=== PATIENT | male | born 1945 | race Caucasian/White ===

== ENCOUNTER 2021-01-05 21:43 | Emergency (ER) | payer OTHER ==
[2021-01-05 22:37] LABS: Absolute Lymphocytes (CBC) 1.3 K/uL (0.7-4.9); Hematocrit 43.5 % (39.6-49.0); Lymphocytes % 27.1 % (15.3-44.8); MPV 8.6 fL (7.6-11.3); RBC Red Blood Cell Count 4.93 M/uL (4.33-5.43)
[2021-01-05 22:38] LABS: Protime INR 0.99
[2021-01-05 22:56] LABS: ALT/SGPT 83 U/L (12-78); AST/SGOT 66 U/L (15-37); Albumin 3.3 g/dL (3.4-5.0); Alkaline Phosphatase 71 U/L (45-117); BUN Blood Urea Nitrogen 11 mg/dL (7-18); Bicarbonate 29 mmol/L (21-32); Bilirubin Direct 0.2 mg/dL (0-0.2); Bilirubin Total 0.3 mg/dL (0.2-1.0); Glucose Level 233 mg/dL (74-106); Magnesium 1.9 mg/dL (1.8-2.4); NT PRO-BNP 78 pg/mL (<125); Potassium 3.8 mmol/L (3.5-5.1); Protein, Total 7.4 g/dL (6.4-8.2); Sodium Level 138 mmol/L (136-145); Troponin (Emerg Dept Use Only) < 0.02 ng/mL (0.0-0.045)
[2021-01-06] MEDS ORDERED: ONDANSETRON 4 MG/2 ML VIAL ONE (01:24)
[2021-01-06] MEDS ORDERED: MORPHINE 2 MG/ML SYR ONE (01:24)
[2021-01-06] MEDS ORDERED: NA CHLORIDE 0.9% 1,000 ML ONE (01:24)
[2021-01-06] MEDS ORDERED: DIPHENHYDRAMINE 50 MG/ML VIAL ONE (03:43)
[2021-01-06] MEDS ORDERED: METHYLPREDNISOLONE 40 MG INJ ONE (03:43)
[2021-01-06] MEDS ORDERED: ACETAMINOPHEN 500 MG TAB ONE (03:43)
[2021-01-06] MEDS ORDERED: NA CHLORIDE 0.9% 250 ML ONE (04:21)
[2021-01-06] MEDS ORDERED: CASIRIVIMAB/IMDEVIMAB 10 ML VIAL ONE (04:21)
--- NOTE | 2021-01-06 06:33 | EDPHYS ---
Physician Documentation [facility] Name: Marek Paul III Age: 75 yrs Sex: Male : 1945 Arrival Date: 01/05/2021 Time: 21:52 Bed 23 Private MD: ED Physician Alexis Desir HPI: 01/06 00:35 This 75 yrs old Male presents to ER via Ambulatory with complaints of Chest mh7 Pain, RIB PAIN, BELCHING ALOT. 01:30 The patient or guardian reports cough, that is intermittent, described as moderate, mh7 with no sputum, flu symptoms, myalgias, Congestion. Onset: The symptoms/episode began/occurred 3 day(s) ago. Severity of symptoms: At their worst the symptoms were moderate, 2 day(s) ago, in the emergency department the symptoms are unchanged. Modifying factors: The symptoms are alleviated by nothing, Did not attempt to take medication the symptoms are aggravated by nothing. Associated signs and symptoms: Pertinent positives: chest pain, with cough, rhinorrhea, body aches, Pertinent negatives: diarrhea, ear ache, fever, nausea, sore throat, vomiting. Historical: - Allergies: 01/05 22:31 No Known Allergies; em - PMHx: 01/06 02:41 Diabetes mellitus; jb4 - Immunization history:: Adult Immunizations not immunized, Client reports having NOT received the Covid vaccine. - Social history:: Smoking status: Patient denies any tobacco usage or history of. ROS: 00:35 Constitutional: Negative for fever, chills, and weight loss, Eyes: Negative for injury, mh7 pain, redness, and discharge, ENT: Negative for injury, pain, and discharge, Neck: Negative for injury, pain, and swelling, Abdomen/GI: Negative for abdominal pain, nausea, vomiting, diarrhea, and constipation, Back: Negative for injury and pain, : Negative for injury, bleeding, discharge, and swelling, MS/Extremity: Negative for injury and deformity, Skin: Negative for injury, rash, and discoloration, Neuro: Negative for headache, weakness, numbness, tingling, and seizure, Psych: Negative for depression, anxiety, suicide ideation, homicidal ideation, and hallucinations, Allergy/Immunology: Negative for hives, rash, and allergies, Endocrine: Negative for neck swelling, polydipsia, polyuria, polyphagia, and marked weight changes. Exam: 00:35 Constitutional: This is a well developed, well nourished patient who is awake, alert, mh7 and in no acute distress. Head/Face: Normocephalic, atraumatic. Eyes: Pupils equal round and reactive to light, extra-ocular motions intact. Lids and lashes normal. Conjunctiva and sclera are non-icteric and not injected. Cornea within normal limits. Periorbital areas with no swelling, redness, or edema. ENT: Nares patent. No nasal discharge, no septal abnormalities noted. Tympanic membranes are normal and external auditory canals are clear. Oropharynx with no redness, swelling, or masses, exudates, or evidence of obstruction, uvula midline. Mucous membranes moist. Neck: Trachea midline, no thyromegaly or masses palpated, and no cervical lymphadenopathy. Supple, full range of motion without nuchal rigidity, or vertebral point tenderness. No Meningismus. Chest/axilla: Normal chest wall appearance and motion. Nontender with no deformity. No lesions are appreciated. Cardiovascular: Regular rate and rhythm with a normal S1 and S2. No gallops, murmurs, or rubs. Normal PMI, no JVD. No pulse deficits. 00:35 Abdomen/GI: Soft, non-tender, with normal bowel sounds. No distension or tympany. No guarding or rebound. No evidence of tenderness throughout. Back: No spinal tenderness. No costovertebral tenderness. Full range of motion. Skin: Warm, dry with normal turgor. Normal color with no rashes, no lesions, and no evidence of cellulitis. MS/ Extremity: Pulses equal, no cyanosis. Neurovascular intact. Full, normal range of motion. Neuro: Awake and alert, GCS 15, oriented to person, place, time, and situation. Cranial nerves II-XII grossly intact. Motor strength 5/5 in all extremities. Sensory grossly intact. Cerebellar exam normal. Normal gait. Psych: Awake, alert, with orientation to person, place and time. Behavior, mood, and affect are within normal limits. 00:35 Respiratory: the patient does not display signs of respiratory distress, Respirations: normal, Breath sounds: rhonchi, that are mild, are scattered, Respiratory rate: 18 Vital Signs: 01/05 22:08 BP 155 / 90; Pulse 95; Resp 18; Temp 97.8; Pulse Ox 99% on R/A; Weight 78.93 kg; Height em 5 ft. 7 in. (170.18 cm); Pain 8/10; 23:23 BP 175 / 102 RA; Pulse 96; Pulse Ox 97% on R/A; mw 23:26 BP 159 / 101; mw 0815 00:30 BP 180 / 103; Pulse 99; Resp 16; Pulse Ox 98% on R/A; jb4 01:15 BP 164 / 94; Pulse 99; Resp 16; Pulse Ox 98% on R/A; jb4 03:00 BP 169 / 114; Pulse 96; Resp 16; Pulse Ox 97% on R/A; jb4 04:00 BP 126 / 78; Pulse 90; Resp 18; Pulse Ox 96% on R/A; jb4 04:30 BP 128 / 74; Pulse 86; Resp 16; Pulse Ox 95% on R/A; jb4 05:00 BP 146 / 102; Pulse 84; Resp 16; Pulse Ox 95% on R/A; jb4 06:00 BP 159 / 99; Pulse 76; Resp 21; Pulse Ox 94% on R/A; jb4 01/05 22:08 Body Mass Index 27.25 (78.93 kg, 170.18 cm) em MDM: 06:30 Differential Diagnosis: Bronchitis Influenza Upper Respiratory Infection Viral Syndrome mh7 Pneumonia. Data reviewed: vital signs, nurses notes, lab test result(s), cardiac enzymes, CBC, electrolytes, Flu: negative Covid positive, EKG, radiologic studies, CT scan, plain films. Data interpreted: Pulse oximetry: on room air is 96 %. Interpretation: normal. Counseling: I had a detailed discussion with the patient and/or guardian regarding: the historical points, exam findings, and any diagnostic results supporting the discharge/admit diagnosis, the presence of at least one elevated blood pressure reading (>120/80) during this emergency department visit, lab results, radiology results, the need for outpatient follow up, to return to the emergency department if symptoms worsen or persist or if there are any questions or concerns that arise at home. Response to treatment: the patient's symptoms have resolved after treatment, the patient's blood pressure is in an acceptable range, mental status has returned to baseline, the patient no longer shows bradycardia, the patient is not short of breath, the patient is not tachycardic, the patient's pain is gone, the patient's temperature has normalized, the patient's condition has returned to base line, the patient is now symptom free. 06:32 Patient medically screened. health system 01/05 22:27 Order name: Basic Metabolic Panel; Complete Time: 00:08 2 01/05 22:27 Order name: CBC with Diff; Complete Time: 00:08 [facility] 01/05 22:27 Order name: LFT's; Complete Time: 00:08 [facility] 01/05 22:27 Order name: Magnesium; Complete Time: 00:08 [facility] 01/05 22:27 Order name: NT PRO-BNP; Complete Time: 00:08 [facility] 01/05 22:27 Order name: PT-INR; Complete Time: 00:08 [facility] 01/05 22:27 Order name: Troponin (emerg Dept Use Only); Complete Time: 00:08 [facility] 01/05 22:27 Order name: XRAY Chest (1 view) [facility] 01/06 00:48 Order name: Lipase; Complete Time: 01:34 health system 01/06 00:48 Order name: CT Chest For PE Angio [facility] 01/06 01:27 Order name: SARS-COV-2 RT PCR; Complete Time: 01:34 [facility] 01/06 02:44 Order name: Troponin (emerg Dept Use Only) health system 01/06 02:44 Order name: Troponin (Emerg Dept Use Only); Complete Time: 05:49 EDMS 01/05 22:27 Order name: EKG; Complete Time: 22:28 [facility] 01/05 22:27 Order name: Cardiac monitoring; Complete Time: 00:08 [facility] 01/05 22:27 Order name: EKG - Nurse/Tech; Complete Time: 22:27 2 01/05 22:27 Order name: IV Saline Lock; Complete Time: 22:27 [facility] 01/05 22:27 Order name: Labs collected and sent; Complete Time: 00:08 2 01/05 22:27 Order name: O2 Per Protocol; Complete Time: 00:08 2 01/05 22:27 Order name: O2 Sat Monitoring; Complete Time: 00:08 mw2 Administered Medications: 01:15 Drug: NS 0.9% 1000 ml Route: IV; Rate: 1000 ml; Site: left forearm; jb4 02:15 Follow up: Response: No adverse reaction; IV Status: Completed infusion; IV Intake: jb4 1000ml 01:15 Drug: Zofran (Ondansetron) 4 mg Route: IVP; Site: left forearm; jb4 01:45 Follow up: Response: No adverse reaction; Marked relief of symptoms jb4 01:17 Drug: morphine 2 mg Route: IVP; Site: left forearm; jb4 01:45 Follow up: Response: No adverse reaction; Marked relief of symptoms; Pain is decreased; 4 RASS: Alert and Calm (0) 03:25 Drug: SOLU-Medrol (methylPrednisoLONE) 80 mg Route: IVP; Site: left forearm; jb4 07:15 Follow up: Response: No adverse reaction 4 03:25 Drug: Benadryl (diphenhydrAMINE) 25 mg Route: IVP; Site: left forearm; jb4 07:14 Follow up: Response: No adverse reaction [facility] 03:25 Drug: Tylenol 1000 mg Route: PO; jb4 07:14 Follow up: Response: No adverse reaction 4 04:30 Drug: REGEN-COV Dose Pack 120 mg/mL-120 mg/mL (EUA) 250 ml Route: IV; Rate: per 4 protocol; Site: left forearm; 05:30 Follow up: Response: No adverse reaction; IV Status: Completed infusion; IV Intake: jb4 260ml Disposition Summary: 01/06/21 06:32 Discharge Ordered Location: Home health system Problem: new health system Symptoms: have improved health system Condition: Stable health system Diagnosis - COVID Pneumonia health system Followup: health system - With: Private Physician - When: 1 - 2 days - Reason: Worsening of condition, Recheck today's complaints, Continuance of care, Re-evaluation by your physician Discharge Instructions: - Discharge Summary Sheet health system - Viral Respiratory Infection, [id number] health system - COVID-19 health system Forms: - Medication Reconciliation Form health system - Thank You Letter health system - Antibiotic Education health system - Prescription Opioid Use health system Prescriptions: - Tessalon Perles 100 mg Oral Capsule - take 1 capsule by ORAL route every 8 hours As needed; 15 capsule; Refills: 0, 7 Product Selection Permitted - Zithromax Z-Alejandro 250 mg Oral Tablet - take 1 tablet by ORAL route as directed for 5 days Day 1 - take two (2) tablets health system one time. Day 2, 3, 4 , 5 take one (1) tablet once daily.; 6 tablet; Refills: 0, Product Selection Permitted - albuterol sulfate 90 mcg/actuation Inhalation HFA aerosol inhaler - inhale 1 puff by INHALATION route every 6 hours As needed; 1 Inhaler; Refills: mh7 0, Product Selection Permitted - Prednisone 20 mg Oral Tablet - take 2 tablets by ORAL route once daily for 5 days; 10 tablet; Refills: 0, mh7 Product Selection Permitted Signatures: Dispatcher [employer] [facility] Eulalio Duarte RN RN em Jean Collins RN RN jb4 Franklin Berrios 2 Alexis Desir MD MD mh7 Corrections: (The following items were deleted from the chart) 00:32 00:08 CORONAVIRUS+MR.LAB.BRZ ordered. EDNV EDNV 07:15 01:19 Urine Dipstick-Ancillary ordered. 7 jb4
--- NOTE | 2021-01-06 06:33 | ER ---
Nurse's Notes [facility] Name: Marek Paul III Age: 75 yrs Sex: Male : 1945 Arrival Date: 01/05/2021 Time: 21:52 Bed 23 Private MD: Diagnosis: COVID Pneumonia Presentation: 01/05 22:08 Chief complaint: Patient states: chest pain for 3 days, reports generalized BP, denies em N/V. Coronavirus screen: Client denies travel out of the [place] in the last 14 days. Ebola Screen: Patient negative for fever greater than or equal to 101.5 degrees Fahrenheit, and additional compatible Ebola Virus Disease symptoms Patient denies exposure to infectious person. Patient denies travel to an Ebola-affected area in the 21 days before illness onset. No symptoms or risks identified at this time. Initial Sepsis Screen: Does the patient meet any 2 criteria? HR > 90 bpm. No. Patient's initial sepsis screen is negative. Does the patient have a suspected source of infection? No. Patient's initial sepsis screen is negative. Risk Assessment: Do you want to hurt yourself or someone else? Patient reports no desire to harm self or others. Onset of symptoms was January 05, 2021. 22:08 Method Of Arrival: Ambulatory em 22:08 Acuity: SAPNA 2 em Historical: - Allergies: 22:31 No Known Allergies; em - PMHx: 01/06 02:41 Diabetes mellitus; jb4 - Immunization history:: Adult Immunizations not immunized, Client reports having NOT received the Covid vaccine. - Social history:: Smoking status: Patient denies any tobacco usage or history of. Screenin:00 Abuse screen: Denies threats or abuse. Nutritional screening: No deficits noted. jb4 Tuberculosis screening: No symptoms or risk factors identified. Fall Risk None identified. Assessment: 00:00 General: Appears in no apparent distress. uncomfortable, Behavior is calm, cooperative, jb4 appropriate for age. Pain: Complains of pain in right breast Pain does not radiate. Pain currently is 10 out of 10 on a pain scale. Quality of pain is described as stabbing. Neuro: Level of Consciousness is awake, alert, obeys commands, Oriented to person, place, time, situation. Cardiovascular: Patient's skin is warm and dry. Respiratory: Airway is patent Respiratory effort is even, unlabored, Respiratory pattern is regular, symmetrical. GI: No signs and/or symptoms were reported involving the gastrointestinal system. : No signs and/or symptoms were reported regarding the genitourinary system. EENT: No signs and/or symptoms were reported regarding the EENT system. Derm: Skin is intact, Skin is pink, warm \T\ dry. Musculoskeletal: Circulation, motion, and sensation intact. Range of motion: intact in all extremities. 01:00 Reassessment: Patient appears in no apparent distress at this time. Patient and/or jb4 family updated on plan of care and expected duration. Pain level reassessed. Patient is alert, oriented x 3, equal unlabored respirations, skin warm/dry/pink. 02:00 Reassessment: Patient appears in no apparent distress at this time. Patient and/or jb4 family updated on plan of care and expected duration. Pain level reassessed. Patient is alert, oriented x 3, equal unlabored respirations, skin warm/dry/pink. 03:00 Reassessment: Patient appears in no apparent distress at this time. Patient and/or jb4 family updated on plan of care and expected duration. Pain level reassessed. Patient is alert, oriented x 3, equal unlabored respirations, skin warm/dry/pink. 04:00 Reassessment: Patient appears in no apparent distress at this time. Patient and/or jb4 family updated on plan of care and expected duration. Pain level reassessed. Patient is alert, oriented x 3, equal unlabored respirations, skin warm/dry/pink. 05:00 Reassessment: Patient appears in no apparent distress at this time. Patient and/or jb4 family updated on plan of care and expected duration. Pain level reassessed. Patient is alert, oriented x 3, equal unlabored respirations, skin warm/dry/pink. 06:00 Reassessment: Patient appears in no apparent distress at this time. Patient and/or jb4 family updated on plan of care and expected duration. Pain level reassessed. Patient is alert, oriented x 3, equal unlabored respirations, skin warm/dry/pink. 07:15 Reassessment: Patient appears in no apparent distress at this time. Patient and/or jb4 family updated on plan of care and expected duration. Pain level reassessed. Patient is alert, oriented x 3, equal unlabored respirations, skin warm/dry/pink. Vital Signs: 01/05 22:08 BP 155 / 90; Pulse 95; Resp 18; Temp 97.8; Pulse Ox 99% on R/A; Weight 78.93 kg; Height em 5 ft. 7 in. (170.18 cm); Pain 8/10; 23:23 BP 175 / 102 RA; Pulse 96; Pulse Ox 97% on R/A; mw 23:26 BP 159 / 101; mw 01/06 00:30 BP 180 / 103; Pulse 99; Resp 16; Pulse Ox 98% on R/A; jb4 01:15 BP 164 / 94; Pulse 99; Resp 16; Pulse Ox 98% on R/A; jb4 03:00 BP 169 / 114; Pulse 96; Resp 16; Pulse Ox 97% on R/A; jb4 04:00 BP 126 / 78; Pulse 90; Resp 18; Pulse Ox 96% on R/A; jb4 04:30 BP 128 / 74; Pulse 86; Resp 16; Pulse Ox 95% on R/A; jb4 05:00 BP 146 / 102; Pulse 84; Resp 16; Pulse Ox 95% on R/A; jb4 06:00 BP 159 / 99; Pulse 76; Resp 21; Pulse Ox 94% on R/A; jb4 01/05 22:08 Body Mass Index 27.25 (78.93 kg, 170.18 cm) em ED Course: 01/05 21:52 Patient arrived in ED. cf2 22:11 Triage completed. em 22:31 Arm band placed on. em 23:54 XRAY Chest (1 view) In Process Unspecified. EDMS 01/06 00:00 Patient has correct armband on for positive identification. Bed in low position. Call jb4 light in reach. Side rails up X 1. lunchroom monitor on. Pulse ox on. NIBP on. 00:00 Patient maintains SpO2 saturation greater than 95% on room air. jb4 00:07 Alexis Desir MD is Attending Physician. 7 00:56 Jean Collins, FARRUKH is Primary Nurse. jb4 01:54 CT Chest For PE Angio In Process Unspecified. EDMS 07:20 No provider procedures requiring assistance completed. IV discontinued, intact, jb4 bleeding controlled, No redness/swelling at site. Pressure dressing applied. Administered Medications: 01:15 Drug: NS 0.9% 1000 ml Route: IV; Rate: 1000 ml; Site: left forearm; jb4 02:15 Follow up: Response: No adverse reaction; IV Status: Completed infusion; IV Intake: jb4 1000ml 01:15 Drug: Zofran (Ondansetron) 4 mg Route: IVP; Site: left forearm; jb4 01:45 Follow up: Response: No adverse reaction; Marked relief of symptoms jb4 01:17 Drug: morphine 2 mg Route: IVP; Site: left forearm; jb4 01:45 Follow up: Response: No adverse reaction; Marked relief of symptoms; Pain is decreased; jb4 RASS: Alert and Calm (0) 03:25 Drug: SOLU-Medrol (methylPrednisoLONE) 80 mg Route: IVP; Site: left forearm; jb4 07:15 Follow up: Response: No adverse reaction jb4 03:25 Drug: Benadryl (diphenhydrAMINE) 25 mg Route: IVP; Site: left forearm; jb4 07:14 Follow up: Response: No adverse reaction jb4 03:25 Drug: Tylenol 1000 mg Route: PO; jb4 07:14 Follow up: Response: No adverse reaction 4 04:30 Drug: REGEN-COV Dose Pack 120 mg/mL-120 mg/mL (EUA) 250 ml Route: IV; Rate: per 4 protocol; Site: left forearm; 05:30 Follow up: Response: No adverse reaction; IV Status: Completed infusion; IV Intake: jb4 260ml Intake: 02:15 IV: 1000ml; Total: 1000ml. jb4 05:30 IV: 260ml; Total: 1260ml. jb4 Outcome: 06:32 Discharge ordered by . 7 07:20 Discharged to home ambulatory. jb4 07:20 Condition: stable 07:20 Discharge instructions given to patient, Instructed on discharge instructions, follow up and referral plans. medication usage, Demonstrated understanding of instructions, follow-up care, medications, Prescriptions given X 4. 07:21 Patient left the ED. jb4 Signatures: Dispatcher [employer] EDRenu Cornejo RN RN mw Munoz, Edgar, RN RN em Bryson, James, RN RN 4 Margie Paz [facility] Desir, Alexis, MD MD mh7
[2021-01-06 07:51] VITALS: TEMP 97.8
[2021-01-06 08:08] VITALS: BP 159/99; O2SAT 94
--- NOTE | 2021-01-06 08:29 | RAD REPORT ---
EXAM DESCRIPTION: RAD - Chest Single View - 01/05/2021 11:54 pm CLINICAL HISTORY: CHEST PAIN COMPARISON: No comparisons FINDINGS: No evidence of edema or pneumonia. The heart size is within normal limits.No acute osseous abnormality. No significant pleural effusions or pneumothorax. IMPRESSION: No acute cardiopulmonary disease.
--- NOTE | 2021-01-07 10:50 | RAD REPORT ---
EXAM DESCRIPTION: CT - Chest For Pe Angio - 01/06/2021 6:36 am CLINICAL HISTORY: 75 years Male Chest pain; Cough COMPARISON: None TECHNIQUE: Axial CT angiography of the chest was performed with multiplanar reformation and 3D and M IP reconstruction. This exam was performed according to our departmental dose-optimization program, w hich includes automated exposure control, adjustment of the mA and/or kV according to patient size an d/or use of iterative reconstruction technique. FINDINGS: Pulmonary arteries: No evidence of pulmonary embolism. Aorta: No evidence of aortic dissection or aneurysm. Mediastinum: Unremarkable. No adenopathy. Heart: Heart is normal in size. No pericardial effusion. Lungs / airways: Focal peripheral groundglass opacity in the left upper lobe and in the right lower l obe. No focal consolidation. Airways are patent. Pleura: No significant pleural effusion. No pneumothorax. Osseous: Multilevel degenerative changes. Soft tissues: Unremarkable. Visualized upper abdomen: Unremarkable. IMPRESSION: 1. No evidence of pulmonary embolism. 2. Focal peripheral groundglass opacities in the left upper lobe and in the right lower lobe. Imagi ng features can be seen with (COVID-19 or viral) pneumonia, though are nonspecific and can occur with a variety of infectious and noninfectious processes. Electronically signed by: Jeff Harris MD 01/06/2021 2:14 AM CDT Due to temporary technical issues with the PACS/Fluency reporting system, reports are being signed by the in house radiologist without review as a courtesy to ensure prompt reporting. The interpreting r adiologist is fully responsible for the content of the report.
== END 2021-01-06 07:21 | disposition home or self-care (01) ==
LOC: ER 21:43
DX: U07.1 COVID-19 (principal); J12.82 Pneumonia due to coronavirus disease 2019; E11.9 Type 2 diabetes mellitus without complications
CPT/HCPCS: 96365; 96361; 93005; 85025; 80048; 36415 ×2; 83735; 85610; 80076; 84484 ×2; 83690; 83880; 71275; 71045; 96375; 99285; U0003; Q9967; J1200; J2270; J7050; J7030; J2405; J2920

== ENCOUNTER 2021-01-07 22:11 | Emergency (ER) | payer OTHER ==
--- NOTE | 2021-01-08 02:03 | ER ---
Nurse's Notes [facility] Name: Marek Paul III Age: 75 yrs Sex: Male : 1945 Arrival Date: 01/07/2021 Time: 22:15 Bed Waiting Private MD: Diagnosis: Presentation: 01/07 23:52 Chief complaint: Patient states: he was here yesterday dx with Covid and given bb Regen-COV then started having diarrhea after he took all of the pills he was prescribed is concerned he is having a reaction to the medication. Coronavirus screen: Client reports previous positive COVID test result. Ebola Screen: No symptoms or risks identified at this time. Initial Sepsis Screen: Does the patient meet any 2 criteria? No. Patient's initial sepsis screen is negative. Does the patient have a suspected source of infection? No. Patient's initial sepsis screen is negative. Risk Assessment: Do you want to hurt yourself or someone else? Patient reports no desire to harm self or others. Onset of symptoms was January 07, 2021. 23:52 Method Of Arrival: Ambulatory bb 23:52 Acuity: SAPNA 3 bb Triage Assessment: 23:55 General: Appears in no apparent distress. Behavior is calm, cooperative. Pain: Denies bb pain. Neuro: Level of Consciousness is awake, alert, obeys commands, Oriented to person, place, time, situation. Cardiovascular: Capillary refill < 3 seconds Patient's skin is warm and dry. Respiratory: Respiratory effort is even, unlabored. GI: Reports diarrhea. Derm: Skin is pink, warm \T\ dry. Musculoskeletal: Circulation, motion, and sensation intact. Historical: - Allergies: 23:55 No Known Allergies; bb - PMHx: 23:55 diabetes mellitus; bb - Immunization history:: Adult Immunizations up to date, Client reports having NOT received the Covid vaccine. - Social history:: Smoking status: Patient denies any tobacco usage or history of. Assessment: 01/08 02:02 Reassessment: notified by registration pt left the ED. bb Vital Signs: 01/07 23:52 BP 156 / 96; Pulse 94; Resp 18 S; Temp 98.3; Pulse Ox 97% on R/A; Weight 80.29 kg (R); bb Height 5 ft. 7 in. (170.18 cm) (R); Pain 0/10; 23:52 Body Mass Index 27.72 (80.29 kg, 170.18 cm) bb ED Course: 22:15 Patient arrived in ED. bp1 23:55 Triage completed. bb 23:55 Arm band placed on Patient placed in waiting room, Patient notified of wait time. bb 01/08 00:02 Shelley Rothman FNP-C [facility] kb 00:02 Jose Acosta MD is Attending Physician. kb 01:53 Jose Acosta MD is Attending Physician. royce Administered Medications: No medications were administered Outcome: 02:02 Patient left the ED. bb Signatures: Shelley Rothman FNP-C EXHIBIT ARTIST-CkJose Sorenson MD MD cha Ballard, Brenda, RN RN bb Nery Chapman bp1
[2021-01-08 02:07] VITALS: BP 156/96; TEMP 98.3; O2SAT 97
== END 2021-01-08 02:02 | disposition left against medical advice (07) ==
LOC: ER 22:11
DX: Z53.21 Procedure and treatment not carried out due to patient leaving prior to being seen by health care provider (principal)
CPT/HCPCS: 99281

== ENCOUNTER 2021-05-25 03:38 | Inpatient (IN) | payer OTHER ==
[2021-05-25 04:08] LABS: Absolute Lymphocytes (CBC) 0.9 K/uL (0.7-4.9); Hematocrit 49.4 % (39.6-49.0); Lymphocytes % 8.6 % (15.3-44.8); MPV 8.7 fL (7.6-11.3); RBC Red Blood Cell Count 5.62 M/uL (4.33-5.43)
[2021-05-25] MEDS ORDERED: NA CHLORIDE 0.9% 500 ML ONE (04:08)
[2021-05-25] MEDS ORDERED: MORPHINE 4 MG/ML SYR ONE (04:08)
[2021-05-25] MEDS ORDERED: ONDANSETRON 4 MG/2 ML VIAL ONE ×2 (04:08→07:59)
[2021-05-25] MEDS ORDERED: FAMOTIDINE 20 MG/2 ML VIAL IV ONE (04:09)
[2021-05-25 04:26] LABS: ALT/SGPT 82 U/L (12-78); AST/SGOT 52 U/L (15-37); Alkaline Phosphatase 78 U/L (45-117); BUN Blood Urea Nitrogen 19 mg/dL (7-18); Bicarbonate 30 mmol/L (21-32); Bilirubin Direct 0.2 mg/dL (0-0.2); Bilirubin Total 0.6 mg/dL (0.2-1.0); Glucose Level 256 mg/dL (74-106); Lipase 1012 U/L (73-393); Protein, Total 8.6 g/dL (6.4-8.2); Sodium Level 136 mmol/L (136-145); Troponin (Emerg Dept Use Only) < 0.02 ng/mL (0.0-0.045)
[2021-05-25 04:45] LABS: Urine Blood Negative (Negative); Urine Glucose 2+ (Negative); Urine Protein Negative (Negative); Urine pH 8.5 (5.0-7.0)
[2021-05-25] MEDS ORDERED: HYDROMORPHONE HCL 0.5 MG/0.5 ML INJ ONE (05:41)
--- NOTE | 2021-05-25 07:55 | EDPHYS ---
Physician Documentation [facility] Name: Marek Paul III Age: 76 yrs Sex: Male : 1945 Arrival Date: 05/25/2021 Time: 03:46 Bed 20 Private MD: ED Physician Jose Acosta HPI: 05/25 03:59 This 76 yrs old Male presents to ER via Unassigned with complaints of Chest Pain, mh7 Possible Cardiac Related. 04:00 The patient presents with abdominal pain in the right upper quadrant. Onset: The mh7 symptoms/episode began/occurred last night, at 21:00. The symptoms do not radiate. Associated signs and symptoms: Pertinent positives: nausea, Pertinent negatives: anorexia, blood in stools, chest pain, constipation, diarrhea, dysuria, fever, headache, hematuria, palpitations, shortness of breath, testicular pain, vomiting, vomiting blood. The symptoms are described as intermittent, vague, waxing/waning. Modifying factors: The symptoms are alleviated by nothing, the symptoms are aggravated by nothing. Severity of pain: At its worst the pain was moderate last night, in the emergency department the pain is unchanged. Historical: - Allergies: 04:24 PENICILLINS; bb - PMHx: 04:24 diabetes mellitus; bb - Immunization history:: unknown. - Social history:: Smoking status: Patient denies any tobacco usage or history of. ROS: 04:00 Constitutional: Negative for fever, chills, and weight loss, Eyes: Negative for injury, mh7 pain, redness, and discharge, ENT: Negative for injury, pain, and discharge, Neck: Negative for injury, pain, and swelling, Cardiovascular: Negative for chest pain, palpitations, and edema, Respiratory: Negative for shortness of breath, cough, wheezing, and pleuritic chest pain, Back: Negative for injury and pain, : Negative for injury, bleeding, discharge, and swelling, MS/Extremity: Negative for injury and deformity, Skin: Negative for injury, rash, and discoloration, Neuro: Negative for headache, weakness, numbness, tingling, and seizure, Psych: Negative for depression, anxiety, suicide ideation, homicidal ideation, and hallucinations, Allergy/Immunology: Negative for hives, rash, and allergies, Endocrine: Negative for neck swelling, polydipsia, polyuria, polyphagia, and marked weight changes, Hematologic/Lymphatic: Negative for swollen nodes, abnormal bleeding, and unusual bruising. Exam: 04:00 Head/Face: Normocephalic, atraumatic. Eyes: Pupils equal round and reactive to light, mh7 extra-ocular motions intact. Lids and lashes normal. Conjunctiva and sclera are non-icteric and not injected. Cornea within normal limits. Periorbital areas with no swelling, redness, or edema. Neck: Trachea midline, no thyromegaly or masses palpated, and no cervical lymphadenopathy. Supple, full range of motion without nuchal rigidity, or vertebral point tenderness. No Meningismus. Chest/axilla: Normal chest wall appearance and motion. Nontender with no deformity. No lesions are appreciated. Cardiovascular: Regular rate and rhythm with a normal S1 and S2. No gallops, murmurs, or rubs. Normal PMI, no JVD. No pulse deficits. Respiratory: Lungs have equal breath sounds bilaterally, clear to auscultation and percussion. No rales, rhonchi or wheezes noted. No increased work of breathing, no retractions or nasal flaring. Back: No spinal tenderness. No costovertebral tenderness. Full range of motion. Skin: Warm, dry with normal turgor. Normal color with no rashes, no lesions, and no evidence of cellulitis. MS/ Extremity: Pulses equal, no cyanosis. Neurovascular intact. Full, normal range of motion. Neuro: Awake and alert, GCS 15, oriented to person, place, time, and situation. Cranial nerves II-XII grossly intact. Motor strength 5/5 in all extremities. Sensory grossly intact. Cerebellar exam normal. Normal gait. Psych: Awake, alert, with orientation to person, place and time. Behavior, mood, and affect are within normal limits. 04:00 Constitutional: The patient appears in no acute distress, alert, awake, uncomfortable. 04:00 Abdomen/GI: Inspection: obese Bowel sounds: normal, in all quadrants, Palpation: mh7 moderate abdominal tenderness, in the right upper quadrant, mass, is not appreciated, rebound tenderness, is not appreciated, voluntary guarding, is not appreciated, involuntary guarding, is not appreciated, no appreciated organomegaly, Rectal exam: the exam is deferred, because of patient request, Indicators: McBurney's point is not tender, Rodriguez's sign is negative, Rovsing's sign is negative, Obturator sign is negative, Psoas sign is negative, Liver: no appreciated palpable abnormalities. 09:04 ECG was reviewed by the Attending Physician. [facility] Vital Signs: 03:50 BP 191 / 94; Pulse 86; Resp 18 S; Temp 97.6(O); Pulse Ox 95% on R/A; Weight 81.65 kg bb (R); Height 5 ft. 7 in. (170.18 cm) (R); Pain 10/10; 06:07 BP 184 / 101; Pulse 74; Resp 17; Pulse Ox 93% ; Pain 5/10; kd3 07:39 BP 169 / 101; Pulse 74; Resp 19; Pulse Ox 95% on R/A; ae4 08:12 BP 158 / 90; Pulse 98; Resp 17; Pulse Ox 94% on R/A; ae4 09:04 BP 172 / 98; Pulse 74; Resp 17; Pulse Ox 97% on R/A; ae4 10:33 BP 161 / 101; Pulse 79; Resp 16; Pulse Ox 98% on R/A; ae4 11:46 BP 129 / 78; Pulse 77; Resp 18; Pulse Ox 95% on R/A; ae4 16:58 BP 155 / 91; Pulse 84; Resp 17; Pulse Ox 94% on R/A; ae4 17:10 BP 137 / 83; ae4 03:50 Body Mass Index 28.19 (81.65 kg, 170.18 cm) bb MDM: 07:30 Patient medically screened. [facility] 07:56 Differential diagnosis: bowel obstruction, coronary artery disease, cholecystitis, [facility] Cholelithiasis, diverticulitis, gastritis, Irritable bowel syndrome, non-specific abd pain, pancreatitis, Peptic Ulcer Disease, Peritonitis, Pyelonephritis, Ureterolithiasis, urinary tract infection. Data reviewed: vital signs, nurses notes, lab test result(s), EKG, radiologic studies, CT scan, plain films. Data interpreted: fbi special agent: rate is 74 beats/min, rhythm is regular, Pulse oximetry: on room air is 95 %. Test interpretation: by ED physician or midlevel provider: ECG, plain radiologic studies. Counseling: I had a detailed discussion with the patient and/or guardian regarding: the historical points, exam findings, and any diagnostic results supporting the discharge/admit diagnosis, lab results, radiology results, the need to transfer to another facility, for higher level of care, [facility] does not immediately have the required specialist. 05/25 03:58 Order name: Basic Metabolic Panel; Complete Time: 04:40 7 05/25 03:58 Order name: CBC with Diff; Complete Time: 04:40 7 05/25 03:58 Order name: Hepatic Function; Complete Time: 04:40 7 05/25 03:58 Order name: Lipase; Complete Time: 04:40 [facility] 05/25 03:58 Order name: Troponin (emerg Dept Use Only); Complete Time: 04:40 [facility] 05/25 04:44 Order name: Urine Dipstick-Ancillary; Complete Time: 04:48 EDMS 05/25 06:59 Order name: Lactate [facility] 05/25 06:59 Order name: COVID-19/FLU A+B (Document "Date of Onset" if Symptomatic) [facility] 05/25 06:59 Order name: Procalcitonin [facility] 05/25 06:59 Order name: Lactate; Complete Time: 08:04 EDMS 05/25 06:59 Order name: COVID-19/FLU A+B; Complete Time: 19:39 EDMS 05/25 06:59 Order name: Procalcitonin; Complete Time: 08:49 EDMS 05/25 09:36 Order name: Glucose, Ancillary Testing; Complete Time: 19:38 EDMS 05/25 11:34 Order name: Glucose, Ancillary Testing; Complete Time: 19:39 EDMS 05/25 03:58 Order name: CT Abd/Pelvis - IV Contrast Only [facility] 05/25 04:04 Order name: Chest Single View XRAY; Complete Time: 08:49 [facility] 05/25 11:49 Order name: CBC with Automated Diff EDMS 05/25 11:49 Order name: CBC with Automated Diff EDMS 05/25 11:49 Order name: Comprehensive Metabolic Panel EDMS 05/25 11:49 Order name: Comprehensive Metabolic Panel EDMS 05/25 11:49 Order name: Lipase EDMS 05/25 11:49 Order name: Lipase EDMS 05/25 11:49 Order name: Lipid Profile EDMS 05/25 11:49 Order name: Lipid Profile EDMS 05/25 11:49 Order name: Protime (+INR) EDMS 05/25 11:49 Order name: Protime (+INR) EDMS 05/25 11:49 Order name: PTT, Activated Partial Thromb EDMS 05/25 11:49 Order name: PTT, Activated Partial Thromb EDMS 05/25 14:38 Order name: Glucose, Ancillary Testing; Complete Time: 19:39 EDMS 05/25 16:58 Order name: Glucose, Ancillary Testing; Complete Time: 19:39 EDMS 05/25 03:58 Order name: IV Saline Lock; Complete Time: 04:03 7 05/25 03:58 Order name: Labs collected and sent; Complete Time: 04:03 7 05/25 03:58 Order name: Urine Dipstick-Ancillary (obtain specimen); Complete Time: 04:46 7 05/25 04:58 Order name: US Abdomen Limited; Complete Time: 08:49 7 05/25 11:49 Order name: NPO EDMS EC:01 Rate is 76 beats/min. Rhythm is regular. QRS [place] is Normal. [place] interval is normal. QRS royce interval is normal. QT interval is normal. No Q waves. T waves are Normal. No ST changes noted. Clinical impression: Normal ECG and No evidence of ischemia. Interpreted by me. Reviewed by me. Administered Medications: 04:26 Drug: Pepcid (famotidine) 20 mg Route: IVP; Site: right antecubital; kd3 04:27 Drug: morphine 4 mg Route: IVP; Site: right antecubital; kd3 04:27 Drug: Zofran (Ondansetron) 4 mg Route: IVP; Site: right antecubital; kd3 04:27 Drug: NS 0.9% 500 ml Route: IV; Rate: bolus; Site: right antecubital; kd3 07:59 Drug: NS 0.9% 1000 ml Route: IV; Rate: 1 bolus; Site: right antecubital; ae4 09:30 Follow up: IV Status: Completed infusion; IV Intake: 1000ml ae4 07:59 Drug: NS 0.9% 1000 ml Route: IV; Rate: 1 bolus; Site: right antecubital; ae4 09:30 Follow up: IV Status: Completed infusion; IV Intake: 1000ml ae4 08:01 Drug: Zofran (Ondansetron) 4 mg Route: IVP; Site: right antecubital; ae4 09:29 Follow up: Response: No adverse reaction; No adverse reaction No nausea reportedwith ae4 pain medication administration. 08:03 Drug: Dilaudid (HYDROmorphone) 1 mg Route: IVP; Site: right antecubital; ae4 09:29 Follow up: Response: No adverse reaction; Pain is decreased ae4 09:25 Drug: levofloxacin 500 mg Volume: 100 ml; Route: IVPB; Infused Over: 60 mins; Site: ae4 right antecubital; 10:33 Follow up: IV Status: Completed infusion; IV Intake: 100ml ae4 10:00 Drug: Flagyl (metroNIDAZOLE) 500 mg Volume: 100 ml; Route: IVPB; Rate: 200 ml/hr; ae4 Infused Over: 30 mins; Site: right antecubital; 11:00 Follow up: IV Status: Completed infusion; IV Intake: 100ml ae4 Disposition Summary: 05/25/21 08:51 Hospitalization Ordered Hospitalization Status: Inpatient Admission royce Provider: Antonieta Rowland cha Condition: Fair(05/25/21 08:51) royce Problem: new(05/25/21 08:51) royce Symptoms: have improved(05/25/21 08:51) royce Bed/Room Type: Standard royce Location: Telemetry/MedSurg (Inpatient)(05/25/21 16:37) dw Room Assignment: 229(05/25/21 16:37) dw Diagnosis - Abdominal tenderness(05/25/21 08:51) royce - Biliary acute pancreatitis royce - Other cholelithiasis without obstruction royce - Essential (primary) hypertension(05/25/21 08:51) royce - Type 2 diabetes mellitus with hyperglycemia royce - Unilateral inguinal hernia, without obstruction or gangrene, not specified as royce recurrent - reducible(05/25/21 09:03) Forms: - Medication Reconciliation Form royce - SBAR form royce Signatures: Dispatcher [employer] Delilah Mills RN RN dw Anderson, Corey, MD MD cha Ballard, Brenda, RN RN bb Williams, Irene, RN RN iw Elliott, Andrea, RN RN ae4 Alexis Desir MD MD [facility] Brigid Rolon RN FARRUKH kd3 Corrections: (The following items were deleted from the chart) 07:56 07:55 to royce royce 08:49 07:55 [facility] royce royce 08:49 07:55 Higher level of care royce royce 08:49 07:55 Fair royce royce 08:49 07:55 new royce royce 08:49 07:55 have improved royce royce 08:49 07:55 Abdominal tenderness royce royce 08:49 07:55 Other chronic pancreatitis - acute royce royce 08:49 07:56 to royce royce 08:49 07:56 Essential (primary) hypertension royce royce 09:03 08:51 Unilateral inguinal hernia, without obstruction or gangrene, not specified as royce recurrent royce 14:11 08:51 Telemetry/MedSurg (Inpatient) royce iw 14:11 08:51 royce iw 16:37 14:11 [facility] ER HOLD iw dw 16:37 14:11 ERHOLD- iw dw
--- NOTE | 2021-05-25 07:55 | ER ---
Nurse's Notes [facility] Name: Marek Paul III Age: 76 yrs Sex: Male : 1945 Arrival Date: 05/25/2021 Time: 03:46 Bed 20 Private MD: Diagnosis: Abdominal tenderness;Unilateral inguinal hernia, without obstruction or gangrene, not specified as recurrent-reducible;Biliary acute pancreatitis;Other cholelithiasis without obstruction;Essential (primary) hypertension;Type 2 diabetes mellitus with hyperglycemia Presentation: 05/25 03:50 Chief complaint: Patient states: he is having chest pain x 3 to 4 hours has had an NC bb in the past. Coronavirus screen: At this time, the client does not indicate any symptoms associated with coronavirus-19. Ebola Screen: No symptoms or risks identified at this time. Initial Sepsis Screen: Does the patient meet any 2 criteria? No. Patient's initial sepsis screen is negative. Does the patient have a suspected source of infection? No. Patient's initial sepsis screen is negative. Risk Assessment: Do you want to hurt yourself or someone else? Patient reports no desire to harm self or others. Onset of symptoms was May 25, 2021. 03:50 Method Of Arrival: Ambulatory bb 03:50 Acuity: SAPNA 2 bb Triage Assessment: 05:00 General: Appears in no apparent distress. Behavior is calm, cooperative, appropriate kd3 for age. Pain: Complains of pain in abdomen. Historical: - Allergies: 04:24 PENICILLINS; bb - PMHx: 04:24 diabetes mellitus; bb - Immunization history:: unknown. - Social history:: Smoking status: Patient denies any tobacco usage or history of. Screenin:59 Abuse screen: Denies threats or abuse. Denies injuries from another. Nutritional kd3 screening: No deficits noted. Tuberculosis screening: No symptoms or risk factors identified. Fall Risk IV access (20 points). Assessment: 04:58 Pain: Pain radiates to abdomen Pain began gradually. Neuro: No deficits noted. Level of kd3 Consciousness is awake, alert, obeys commands. Cardiovascular: No deficits noted. Reports chest pain. Respiratory: No deficits noted. Airway is patent Trachea midline Respiratory effort is even, unlabored. 07:47 Reassessment: Patient appears in no apparent distress at this time. Patient is alert, ae4 oriented x 3, equal unlabored respirations, skin warm/dry/pink. Pt states pain has increased back to 6 out of 10. Provider notified.. 08:08 Reassessment: New orders received from provider. ae4 10:34 Reassessment: Patient appears in no apparent distress at this time. Patient is alert, ae4 oriented x 3, equal unlabored respirations, skin warm/dry/pink. Patient states feeling better. Patient states symptoms have improved. 11:00 Reassessment: FSBS 209. ae4 11:47 Reassessment: Patient appears in no apparent distress at this time. Patient is resting ae4 with eyes closed, respirations even, unlabored. Patient states feeling better. Critical care time stopped, patient has stabilized. 12:30 Reassessment: Patient and/or family updated on plan of care and expected duration. Pain ae4 level reassessed. Patient is alert, oriented x 3, equal unlabored respirations, skin warm/dry/pink. Patient states feeling better. 13:30 Reassessment: Patient and/or family updated on plan of care and expected duration. Pain ae4 level reassessed. Patient is alert, oriented x 3, equal unlabored respirations, skin warm/dry/pink. Patient states symptoms have improved. 14:40 Reassessment: Assisted patient to bathroom. patient ambulated with a steady gait. ae4 Vital Signs: 03:50 BP 191 / 94; Pulse 86; Resp 18 S; Temp 97.6(O); Pulse Ox 95% on R/A; Weight 81.65 kg bb (R); Height 5 ft. 7 in. (170.18 cm) (R); Pain 10/10; 06:07 BP 184 / 101; Pulse 74; Resp 17; Pulse Ox 93% ; Pain 5/10; kd3 07:39 BP 169 / 101; Pulse 74; Resp 19; Pulse Ox 95% on R/A; ae4 08:12 BP 158 / 90; Pulse 98; Resp 17; Pulse Ox 94% on R/A; ae4 09:04 BP 172 / 98; Pulse 74; Resp 17; Pulse Ox 97% on R/A; ae4 10:33 BP 161 / 101; Pulse 79; Resp 16; Pulse Ox 98% on R/A; ae4 11:46 BP 129 / 78; Pulse 77; Resp 18; Pulse Ox 95% on R/A; ae4 16:58 BP 155 / 91; Pulse 84; Resp 17; Pulse Ox 94% on R/A; ae4 17:10 BP 137 / 83; ae4 03:50 Body Mass Index 28.19 (81.65 kg, 170.18 cm) bb ED Course: 03:46 Patient arrived in ED. wm 03:48 EKG done, by ED staff, reviewed by Alexis Desir MD. tt3 03:49 Alexis Desir MD is Attending Physician. mh7 03:50 Arm band placed on Patient placed in an exam room. bb 03:58 Brigid Rolon, FARRUKH is Primary Nurse. kd3 03:58 EKG completed in triage. Results shown to MD. bb 04:03 Lipase Sent. kd3 04:03 Hepatic Function Sent. kd3 04:03 CBC with Diff Sent. kd3 04:03 Basic Metabolic Panel Sent. kd3 04:24 Triage completed. bb 04:38 Chest Single View XRAY In Process Unspecified. EDMS 04:59 Inserted saline lock: 20 gauge in right antecubital area, using aseptic technique. kd3 Patient maintains SpO2 saturation greater than 95% on room air. 04:59 Patient has correct armband on for positive identification. Placed in gown. Bed in low kd3 position. Call light in reach. Side rails up X2. steno typist on. Pulse ox on. NIBP on. 05:02 CT Abd/Pelvis - IV Contrast Only In Process Unspecified. EDMS 05:20 US Abdomen Limited In Process Unspecified. EDMS 07:30 Attending Physician role handed off by Alexis Desir MD royce 07:30 Jose Acosta MD is Attending Physician. royce 07:39 COVID-19/FLU A+B (Document "Date of Onset" if Symptomatic) Sent. ae4 07:39 COVID-19/FLU A+B Sent. ae4 07:39 Procalcitonin Sent. ae4 07:39 Lactate Sent. ae4 07:39 Procalcitonin Sent. ae4 08:[address] Acosta with Alverto from the [facility] [place]. eb 08:07 attempted to initiate a transfer with Merlyn from the [facility]. Per Merlyn they eb are not accepting any patient transfers due to being at capacity. 08:34 Alverto from the [facility] called to decline the patient in eb transfer due to being at capacity at [facility], [facility], and the [facility]. 08:49 Antonieta Rowland MD is Hospitalizing Provider. royce 17:05 No provider procedures requiring assistance completed. Patient admitted, IV remains in ae4 place. Administered Medications: 04:26 Drug: Pepcid (famotidine) 20 mg Route: IVP; Site: right antecubital; kd3 04:27 Drug: morphine 4 mg Route: IVP; Site: right antecubital; kd3 04:27 Drug: Zofran (Ondansetron) 4 mg Route: IVP; Site: right antecubital; kd3 04:27 Drug: NS 0.9% 500 ml Route: IV; Rate: bolus; Site: right antecubital; kd3 07:59 Drug: NS 0.9% 1000 ml Route: IV; Rate: 1 bolus; Site: right antecubital; ae4 09:30 Follow up: IV Status: Completed infusion; IV Intake: 1000ml ae4 07:59 Drug: NS 0.9% 1000 ml Route: IV; Rate: 1 bolus; Site: right antecubital; ae4 09:30 Follow up: IV Status: Completed infusion; IV Intake: 1000ml ae4 08:01 Drug: Zofran (Ondansetron) 4 mg Route: IVP; Site: right antecubital; ae4 09:29 Follow up: Response: No adverse reaction; No adverse reaction No nausea reportedwith ae4 pain medication administration. 08:03 Drug: Dilaudid (HYDROmorphone) 1 mg Route: IVP; Site: right antecubital; ae4 09:29 Follow up: Response: No adverse reaction; Pain is decreased ae4 09:25 Drug: levofloxacin 500 mg Volume: 100 ml; Route: IVPB; Infused Over: 60 mins; Site: ae4 right antecubital; 10:33 Follow up: IV Status: Completed infusion; IV Intake: 100ml ae4 10:00 Drug: Flagyl (metroNIDAZOLE) 500 mg Volume: 100 ml; Route: IVPB; Rate: 200 ml/hr; ae4 Infused Over: 30 mins; Site: right antecubital; 11:00 Follow up: IV Status: Completed infusion; IV Intake: 100ml ae4 Intake: 09:30 IV: 1000ml; Total: 1000ml. ae4 09:30 IV: 1000ml; Total: 2000ml. ae4 10:33 IV: 100ml; Total: 2100ml. ae4 11:00 IV: 100ml; Total: 2200ml. ae4 Outcome: 07:55 ER care complete, transfer ordered by . royce 08:51 Decision to Hospitalize by Provider. royce 17:05 Admitted to Med/surg accompanied by tech, family with patient, via wheelchair, room ae4 229, with chart, Report called to FARRUKH Bills 17:05 Condition: stable 17:05 Instructed on the need for admit, Demonstrated understanding of instructions. 17:10 Patient left the ED. ae4 Signatures: Dispatcher [employer] EDMS Jose Acosta MD MD cha Ballard, Brenda, RN RN Keyla Whyte Andrea, RN RN ae4 Alexis Desir MD MD [facility] Richard Rojas 3 Danielle Braga Kyli, RN RN kd3 Corrections: (The following items were deleted from the chart) 04:26 04:24 Arm band placed on Patient placed in an exam room, edson sandhu
[2021-05-25] MEDS ORDERED: HYDROMORPHONE HCL 1 MG/ML INJ ONE (07:59)
[2021-05-25] MEDS ORDERED: NA CHLORIDE 0.9% 2,000 ML ONE (07:59)
--- NOTE | 2021-05-25 08:21 | RAD REPORT ---
EXAM DESCRIPTION: RAD - Chest Single View - 05/25/2021 4:38 am CLINICAL HISTORY: CONGESTION COMPARISON: January 05 TECHNIQUE: AP portable chest image was obtained 05/25/2021 4:38 am . FINDINGS: No peripheral mass or consolidation. Interstitial pattern is not significantly different f rom comparison. Baseline pattern could potentially mask very minimal interstitial edema or infiltrate . Heart and vasculature are normal. No measurable pleural effusion and no pneumothorax. No acute bony abnormality seen. No acute aortic findings suspected. IMPRESSION: No acute cardiopulmonary process. Baseline interstitial pattern and body habitus affects on portable imaging could potentially mask min imal interstitial edema or infiltrate.
--- NOTE | 2021-05-25 08:31 | RAD REPORT ---
EXAM DESCRIPTION: US - Abdomen Exam Limited - 05/25/2021 5:21 am CLINICAL HISTORY: RUQ;Abd pain COMPARISON: Abdomen Pelvis W Contrast dated 05/25/2021 FINDINGS: Several mobile echogenic foci are present. This gallstone pattern matches the same-day CT study. Minimal sludge was identifiable. There is no wall thickening or pericholecystic fluid. No common duct stone or biliary tree dilatation identified. IMPRESSION: Multiple mobile gallstones and minimal quantity of sludge normal size gallbladder. No other gallbladder or biliary tree findings.
[2021-05-25 09:05] LABS: SARS-COV-2 RT PCR NEGATIVE (NEGATIVE)
[2021-05-25] MEDS ORDERED: METRONIDAZOLE 500mg IVPB 500 MG/100 ML BAG IV ONE (09:23)
[2021-05-25] MEDS ORDERED: Levofloxacin500mg IV 500 MG/100 ML BAG IV ONE (09:23)
[2021-05-25] MEDS ORDERED: ONDANSETRON 4 MG/2 ML VIAL IV PRN (11:43)
[2021-05-25] MEDS ORDERED: ACETAMINOPHEN 500 MG TAB PO PRN (11:43)
[2021-05-25] MEDS: NA CHLORIDE 0.9% 1,000 ML IV SCH ×2 (12:00→23:16)
[2021-05-25] MEDS ORDERED: NA CHLORIDE 0.9% 1,000 ML ONE (12:41)
[2021-05-25 18:39] VITALS: BMI 28.1
[2021-05-25] MEDS: MORPHINE 4 MG/ML SYR IV PRN (18:57)
--- NOTE | 2021-05-25 19:31 | RAD REPORT ---
EXAM DESCRIPTION: CT - Abdomen Pelvis W Contrast - 05/25/2021 6:44 am CLINICAL HISTORY: The patient is 76 years old and is Male; ABD PAIN TECHNIQUE: Axial computed tomography images of the abdomen and pelvis with intravenous contrast. S agittal and coronal reformatted images were created and reviewed. This CT exam was performed using one or more of the following dose reduction techniques: automated exposure control, adjustment of t he mA and/or kV according to patient size, and/or use of iterative reconstruction technique. COMPARISON: No relevant prior studies available. FINDINGS: Lung bases: Unremarkable. No mass. No consolidation. ABDOMEN: Liver: Unremarkable. No mass. Gallbladder and bile ducts: Multiple gallstones in the gallbladder. No ductal dilation. Pancreas: Unremarkable. No mass. No ductal dilation. Spleen: Unremarkable. No splenomegaly. Adrenals: Unremarkable. No mass. Kidneys and ureters: Nonobstructing calcification in the left kidney. Multiple simple cysts in the left kidney. ACR White Paper guidelines (Herverna, et al. JACR 2018 ; 15(2):264-273) suggest no follow-up is necessary. Stomach and bowel: There is a 9.3 x 6.0 x 10.9 cm right inguinal hernia containing a segment of s mall bowel. There is mild small bowel distention measuring up to 2.6 cm in diameter. Sigmoid diverticula. No mucosal thickening. PELVIS: Appendix: No findings to suggest acute appendicitis. Bladder: Unremarkable. No mass. Reproductive: Unremarkable as visualized. ABDOMEN and PELVIS: Intraperitoneal space: Unremarkable. No free air. No significant fluid collection. Bones/joints: No acute fracture. No dislocation. Soft tissues: Small fat-containing left inguinal hernia. Vasculature: Unremarkable. No abdominal aortic aneurysm. Lymph nodes: Unremarkable. No enlarged lymph nodes. IMPRESSION: 1. There is a 9.3 x 6.0 x 10.9 cm right inguinal hernia containing a segment of small bowel. There is mild small bowel distention measuring up to 2.6 cm in diameter. 2. Cholelithiasis. 3. Additional non-emergent findings as above. Electronically signed by: Jose Jones MD 05/25/2021 6:15 AM [employer] Due to temporary technical issues with the PACS/Fluency reporting system, reports are being signed by the in house radiologists without review as a courtesy to insure prompt reporting. The interpreting radiologist is fully responsible for the content of the report.
[2021-05-26] MEDS: MORPHINE 4 MG/ML SYR IV PRN ×4 (01:47→22:14)
[2021-05-26 05:37] LABS: Absolute Lymphocytes (CBC) 1.6 K/uL (0.7-4.9); Hematocrit 42.4 % (39.6-49.0); Lymphocytes % 19.1 % (15.3-44.8); MPV 8.6 fL (7.6-11.3); RBC Red Blood Cell Count 4.76 M/uL (4.33-5.43)
[2021-05-26 05:56] LABS: Protime INR 1.13
[2021-05-26 06:08] LABS: ALT/SGPT 54 U/L (12-78); AST/SGOT 27 U/L (15-37); Albumin 2.7 g/dL (3.4-5.0); Alkaline Phosphatase 63 U/L (45-117); BUN Blood Urea Nitrogen 9 mg/dL (7-18); Bicarbonate 26 mmol/L (21-32); Bilirubin Total 1.3 mg/dL (0.2-1.0); Glucose Level 188 mg/dL (74-106); HDL Cholesterol 49 mg/dL (40-60); LDL Cholesterol, Calculated 47 (<130); Lipase 119 U/L (73-393); Protein, Total 6.4 g/dL (6.4-8.2); Sodium Level 137 mmol/L (136-145)
[2021-05-26] MEDS: NA CHLORIDE 0.9% 1,000 ML IV SCH ×2 (09:08→20:37)
--- NOTE | 2021-05-26 23:24 | P.HP ---
Certification for Inpatient Patient admitted to: Inpatient With expected LOS: >2 Midnights Patient will require the following post-hospital care: None Practitioner: I am a practitioner with admitting privileges, knowledge of patient current condition, hospital course, and medical plan of care. Services: Services provided to patient in accordance with Admission requirements found in Title 42 Section 412.3 of the Code of Federal Regulations Patient History Date of Service: 05/25/21 Reason for admission: Abdominal pain History of Present Illness: Patient is a 76-year-old gentleman who is retired with a history of diabetes who comes into the hospital with abdominal pain. Pain was in the right upper and lower quadrants. Patient's pain has not been improving. Patient came into the hospital for further evaluation. Patient's workup revealed that patient had acute pancreatitis. Patient has some small gallstones but no obstructive stones and no dilated gallbladder or wall abnormality was noted. Patient does have a inguinal hernia on the right side. No obstruction was noted. At this time, patient will be admitted for IV hydration. Continue monitoring lipase. Continue with NPO and General surgery consultation. Allergies Penicillins Allergy (Mild, Verified 05/25/21 21:53) Hives/Rash Home Medications: Insulin Detemir [Levemir] 30 units SQ Q12H 05/25/21 Metformin ER [Glucophage ER*] 2 tab PO Q12H 05/25/21 - Past Medical/Surgical History Has patient received pneumonia vaccine in the past: No Diabetic: Yes -: Diabetic -: Shrapnel injury - Family History Father Family History: Reviewed- Non-Contributory - Social History Smoking Status: Never smoker Alcohol use: No CD- Drugs: No Caffeine use: Yes Review of Systems 10-point ROS is otherwise unremarkable Physical Examination - Vital Signs Temperature: 97.7 F Blood Pressure: 179/94 Pulse: 74 Respirations: 18 Pulse Ox (%): 96 - Physical Exam General: Alert, In no apparent distress, Oriented x3 HEENT: Atraumatic, PERRLA, Mucous membr. moist/pink, EOMI, Sclerae nonicteric Neck: Supple, 2+ carotid pulse no bruit, No LAD, Without JVD or thyroid abnormal ity Respiratory: Clear to auscultation bilaterally, Normal air movement Cardiovascular: Regular rate/rhythm, Normal S1 S2, No murmurs Gastrointestinal: Normal bowel sounds, Soft and benign, Non-distended, No rebound, No guarding, Tenderness Musculoskeletal: No clubbing, No swelling, No tenderness Integumentary: No rashes Neurological: Normal gait, Normal speech, Normal strength at 5/5 x4 extr, Normal tone, Sensation intact, Cranial nerves 3-12 intact, Normal affect Lymphatics: No axilla or inguinal lymphadenopathy Assessment & Plan - Problems (Diagnosis) (1) Acute pancreatitis Current Visit: Yes Status: Acute (2) Right inguinal hernia Current Visit: Yes Status: Acute (3) Type 2 diabetes mellitus Current Visit: Yes Status: Acute - Plan Plan: 1. Continue with IV fluids 2. Pain control 3. NPO 4. Continue monitoring labs including lipase level 5. May start clear liquid diet 6. Strict blood sugar control 7. GI and DVT prophylaxis Discharge Plan: Home Plan to discharge in: Greater than 2 days - Advance Directives Does patient have a Living Will: No Does patient have a Durable POA for Healthcare: No - Code Status/Comfort Care Code Status Assessed: Yes Code Status: Full Code Critical Care: No Time Spent Managing PTS Care (In Minutes): 45
--- NOTE | 2021-05-26 23:31 | P.PN ---
Subjective Date of Service: 05/26/21 Patient's symptoms were much improved. Pain is resolved. Lipase back to normal. Will start a clear liquid diet. Review of Systems 10-point ROS is otherwise unremarkable Physical Examination - Vital Signs Temperature: 97.7 F Blood Pressure: 179/94 Pulse: 74 Respirations: 18 Pulse Ox (%): 96 - Physical Exam General: Alert, In no apparent distress, Oriented x3 HEENT: Atraumatic, PERRLA, EOMI Neck: Supple, JVD not distended Respiratory: Clear to auscultation bilaterally, Normal air movement Cardiovascular: Regular rate/rhythm, Normal S1 S2, No murmurs Gastrointestinal: Normal bowel sounds, Soft and benign, Non-distended, No tenderness Musculoskeletal: No clubbing, No swelling, No tenderness Neurological: Sensation intact, Cranial nerves 3-12 intact - Studies Medications List Reviewed: Yes Assessment & Plan - Problems (Diagnosis) (1) Acute pancreatitis Current Visit: Yes Status: Acute (2) Right inguinal hernia Current Visit: Yes Status: Acute (3) Type 2 diabetes mellitus Current Visit: Yes Status: Acute - Plan Plan: Continue with plan of care as mentioned below: 1. Continue with gentle hydration 2. Continue pain medication as needed 3. Will start clear liquid diet 4. Repeat labs in the morning 5. Appreciate General surgery consultation 6. Strict blood sugar control 7. GI and DVT prophylaxis Discharge Plan: Home Plan to discharge in: 24 Hours - Advance Directives Does patient have a Living Will: No Does patient have a Durable POA for Healthcare: No - Code Status/Comfort Care Code Status: Full Code Critical Care: No Time Spent Managing PTS Care (In Minutes): 35
[2021-05-27] MEDS: NA CHLORIDE 0.9% 1,000 ML IV SCH (04:00)
[2021-05-27 05:39] LABS: Absolute Lymphocytes (CBC) 1.9 K/uL (0.7-4.9); Hematocrit 45.1 % (39.6-49.0); Lymphocytes % 19.5 % (15.3-44.8); MPV 8.3 fL (7.6-11.3); RBC Red Blood Cell Count 5.11 M/uL (4.33-5.43)
[2021-05-27 07:23] LABS: Albumin 2.7 g/dL (3.4-5.0); Magnesium 2.2 mg/dL (1.8-2.4); Potassium 4.6 mmol/L (3.5-5.1)
--- NOTE | 2021-05-27 09:57 | P.PN ---
Subjective Date of Service: 05/27/21 Primary Care Provider: kianan Chief Complaint: Abdominal pain Subjective: Improving, Doing well Physical Examination - Vital Signs Temperature: 97.6 F Blood Pressure: 132/60 Pulse: 69 Respirations: 17 Pulse Ox (%): 97 - Studies Medications List Reviewed: Yes Assessment & Plan Discharge Plan: Home Plan to discharge in: 24 Hours Physician Review Additional Text: COVID: Negative CXR: COMPARISON: January 05 TECHNIQUE: AP portable chest image was obtained 05/25/2021 4:38 am . FINDINGS: No peripheral mass or consolidation. Interstitial pattern is not significantly different from comparison. Baseline pattern could potentially mask very minimal interstitial edema or infiltrate. Heart and vasculature are normal. No measurable pleural effusion and no pneumothorax. No acute bony abnormality seen. No acute aortic findings suspected. IMPRESSION: No acute cardiopulmonary process. Baseline interstitial pattern and body habitus affects on portable imaging could potentially mask minimal interstitial edema or infiltrate. Abdomen ultrasound: COMPARISON: Abdomen Pelvis W Contrast dated 05/25/2021 FINDINGS: Several mobile echogenic foci are present. This gallstone pattern matches the same-day CT study. Minimal sludge was identifiable. There is no wall thickening or pericholecystic fluid. No common duct stone or biliary tree dilatation identified. IMPRESSION: Multiple mobile gallstones and minimal quantity of sludge normal size gallbladder. No other gallbladder or biliary tree findings. CT scan abdomen: COMPARISON: No relevant prior studies available. FINDINGS: Lung bases: Unremarkable. No mass. No consolidation. ABDOMEN: Liver: Unremarkable. No mass. Gallbladder and bile ducts: Multiple gallstones in the gallbladder. No ductal dilation. Pancreas: Unremarkable. No mass. No ductal dilation. Spleen: Unremarkable. No splenomegaly. Adrenals: Unremarkable. No mass. Kidneys and ureters: Nonobstructing calcification in the left kidney. Multiple simple cysts in the left kidney. ACR White Paper guidelines (Herverna, et al. JACR 2018; 15(2):264-273) suggest no follow-up is necessary. Stomach and bowel: There is a 9.3 x 6.0 x 10.9 cm right inguinal hernia containing a segment of small bowel. There is mild small bowel distention measuring up to 2.6 cm in diameter. Sigmoid diverticula. No mucosal thickening. PELVIS: Appendix: No findings to suggest acute appendicitis. Bladder: Unremarkable. No mass. Reproductive: Unremarkable as visualized. ABDOMEN and PELVIS: Intraperitoneal space: Unremarkable. No free air. No significant fluid collection. Bones/joints: No acute fracture. No dislocation. Soft tissues: Small fat-containing left inguinal hernia. Vasculature: Unremarkable. No abdominal aortic aneurysm. Lymph nodes: Unremarkable. No enlarged lymph nodes. IMPRESSION: 1. There is a 9.3 x 6.0 x 10.9 cm right inguinal hernia containing a segment of small bowel. There is mild small bowel distention measuring up to 2.6 cm in diameter. 2. Cholelithiasis. 3. Additional non-emergent findings as above. Physical Exam: GENERAL: The patient is a well-developed, well-nourished, in no apparent distress. Alert and oriented x3. VITAL SIGNS: Reviewed HEENT: Head is normocephalic and atraumatic. Extraocular muscles are intact. Pupils are equal, round, and reactive to light and accommodation. Nares appeared normal. Mouth is well hydrated and without lesions. Mucous membranes are moist. NECK: Supple. No carotid bruits. No lymphadenopathy or thyromegaly. LUNGS: Clear to auscultation. No crackles or wheezes are heard. HEART: Regular rate and rhythm, no appreciable gallops, rubs, murmurs or extra heart sounds ABDOMEN: Soft, nontender, and nondistended. Positive bowel sounds. No hepatosplenomegaly was noted. EXTREMITIES: Without any cyanosis, clubbing, rash, lesions or peripheral edema. NEUROLOGIC: The patient is oriented to person, place and time. Strength and sensation are grossly intact. Face is symmetric. SKIN: Normal color, turgor and temperature. No ulcerations or rashes noted. Impression: Acute pancreatitis Cholelithiasis without cholecystitis 9.3 x 6.0 x 10.9 cm right inguinal hernia containing bowel no obstruction noted Hypertension Diabetes mellitus type 2 Plan: Acute pancreatitis: Resolved. Patient tolerating diet. No further pain noted. We will plan for discharge. Cholelithiasis without cholecystitis: Patient tolerating diet. Patient improved. Will plan for discharge. 9.3 x 6.0 x 10.9 cm right inguinal hernia containing bowel no obstruction noted: Recommend follow-up as an outpatient with surgery for outpatient surgery. No heavy lifting, pushing or pulling. Continue with a soft diet. Hypertension: We will start low-dose lisinopril 5 mg daily. Diabetes mellitus type 2: Hemoglobin A1c 8.3. Continue home medication. Code Status: Full Code DVT prophylaxis: Lovenox Advanced Care Planning-30 minutes: Discharge home is planned Time Spent Managing Pts Care (In Minutes): 55
[2021-05-27 11:36] VITALS: O2SAT 98
--- NOTE | 2021-05-27 11:40 | P.DS ---
Admission Date: 05/25/21 Discharge Date: 05/27/21 Primary Care Provider: unknownn Disposition: ROUTINE DISCHARGE Discharge Condition: GOOD Reason for Admission: Abdominal pain Consultations: Surgery-Dr. Barba Procedures: COVID: Negative CXR: COMPARISON: January 05 TECHNIQUE: AP portable chest image was obtained 05/25/2021 4:38 am . FINDINGS: No peripheral mass or consolidation. Interstitial pattern is not significantly different from comparison. Baseline pattern could potentially mask very minimal interstitial edema or infiltrate. Heart and vasculature are normal. No measurable pleural effusion and no pneumothorax. No acute bony abnormality seen. No acute aortic findings suspected. IMPRESSION: No acute cardiopulmonary process. Baseline interstitial pattern and body habitus affects on portable imaging could potentially mask minimal interstitial edema or infiltrate. Abdomen ultrasound: COMPARISON: Abdomen Pelvis W Contrast dated 05/25/2021 FINDINGS: Several mobile echogenic foci are present. This gallstone pattern matches the same-day CT study. Minimal sludge was identifiable. There is no wall thickening or pericholecystic fluid. No common duct stone or biliary tree dilatation identified. IMPRESSION: Multiple mobile gallstones and minimal quantity of sludge normal size gallbladder. No other gallbladder or biliary tree findings. CT scan abdomen: COMPARISON: No relevant prior studies available. FINDINGS: Lung bases: Unremarkable. No mass. No consolidation. ABDOMEN: Liver: Unremarkable. No mass. Gallbladder and bile ducts: Multiple gallstones in the gallbladder. No ductal dilation. Pancreas: Unremarkable. No mass. No ductal dilation. Spleen: Unremarkable. No splenomegaly. Adrenals: Unremarkable. No mass. Kidneys and ureters: Nonobstructing calcification in the left kidney. Multiple simple cysts in the left kidney. ACR White Paper guidelines (Adolph, et al. JACR 2018; 15(2):264-273) suggest no follow-up is necessary. Stomach and bowel: There is a 9.3 x 6.0 x 10.9 cm right inguinal hernia containing a segment of small bowel. There is mild small bowel distention measuring up to 2.6 cm in diameter. Sigmoid diverticula. No mucosal thickening. PELVIS: Appendix: No findings to suggest acute appendicitis. Bladder: Unremarkable. No mass. Reproductive: Unremarkable as visualized. ABDOMEN and PELVIS: Intraperitoneal space: Unremarkable. No free air. No significant fluid collection. Bones/joints: No acute fracture. No dislocation. Soft tissues: Small fat-containing left inguinal hernia. Vasculature: Unremarkable. No abdominal aortic aneurysm. Lymph nodes: Unremarkable. No enlarged lymph nodes. IMPRESSION: 1. There is a 9.3 x 6.0 x 10.9 cm right inguinal hernia containing a segment of small bowel. There is mild small bowel distention measuring up to 2.6 cm in diameter. 2. Cholelithiasis. 3. Additional non-emergent findings as above. Medical Problem List: Acute pancreatitis Cholelithiasis without cholecystitis 9.3 x 6.0 x 10.9 cm right inguinal hernia containing bowel no obstruction noted Hypertension Diabetes mellitus type 2 Brief History of Present Illness: 76-year-old male with history of diabetes presents with abdominal pain. Pain to the right and lower quadrants. Work-up in the ER showed elevated lipase for possible acute pancreatitis. Abdominal ultrasound showed gallstones but no obstructive process or inflammation. Patient was admitted for further evaluation. Hospital Course: Patient presented with abdominal pain. Patient found to have elevated lipase level. Pancreatitis was suspected. Abdominal ultrasound showed cholelithiasis without cholecystitis. Patient also found to have a 9.3 x 6.0 x 10.9 cm right inguinal hernia containing bowel without any obstruction. The patient was observed. Patient continued doing well. Surgery was consulted. No surgical intervention was required. His diet was advanced. Patient tolerating diet. No significant nausea or vomiting noted. At discharge patient will continue with a GI soft diet. Recommended that the patient follow-up with surgery as an outpatient to further evaluate his gallstones and inguinal hernia. Patient would benefit with outpatient hernia repair. No heavy lifting, pushing or pulling is recommended. Recommend follow-up with PCP to follow-up this hospitalization. Patient with diabetes mellitus type 2. Hemoglobin A1c 8.3. Patient currently takes medication. At discharge he will continue with his medications including Metformin at 1000 mg 1 pill twice daily and Levemir 30 units subcu twice daily. Recommend to maintain blood sugar less than 140 fasting and less than 200 after meals. Further adjustment can be done by his PCP. Recommend follow-up with PCP to further monitor and address his diabetes. Patient with hypertension. Recommend to start low-dose lisinopril 2.5 mg daily at discharge. Recommend to maintain blood pressure less than 130/80. Further adjustment can be done by his PCP. Hold if blood pressure systolic less than 110. Vital Signs/Physical Exam: Temp Pulse Resp BP Pulse Ox 97.6 F 69 17 132/60 97 05/27/21 11:38 05/27/21 11:38 05/27/21 11:38 05/27/21 11:38 05/27/21 11:38 General: Alert, In no apparent distress, Oriented x3, Cooperative HEENT: Atraumatic Neck: Supple Respiratory: Clear to auscultation bilaterally, Normal air movement Cardiovascular: Normal pulses, Regular rate/rhythm Gastrointestinal: Normal bowel sounds, No ascites, No tenderness, No masses, No rebound, No guarding Musculoskeletal: No warmth Integumentary: No tenderness/swelling, No erythema, No warmth, No cyanosis Neurological: Normal speech, Normal strength at 5/5 x4 extr, Normal tone Laboratory Data at Discharge: WBC 9.70 K/uL (4.3-10.9) D 05/27/21 05:18 Hgb 14.8 g/dL (13.6-17.9) 05/27/21 05:18 Hct 45.1 % (39.6-49.0) 05/27/21 05:18 Plt Count 186 K/uL (152-406) 05/27/21 05:18 PT 13.0 SECONDS (9.5-12.5) H 05/26/21 05:02 INR 1.13 05/26/21 05:02 APTT 31.3 SECONDS (24.3-36.9) 05/26/21 05:02 Sodium 137 mmol/L (136-145) 05/27/21 05:18 Potassium 4.6 mmol/L (3.5-5.1) 05/27/21 05:18 BUN 10 mg/dL (7-18) 05/27/21 05:18 Creatinine 0.92 mg/dL (0.55-1.3) 05/27/21 05:18 Glucose 168 mg/dL (74-106) H 05/27/21 05:18 Magnesium 2.2 mg/dL (1.8-2.4) 05/27/21 05:18 Total Bilirubin 1.0 mg/dL (0.2-1.0) 05/27/21 05:18 AST 23 U/L (15-37) 05/27/21 05:18 ALT 49 U/L (12-78) 05/27/21 05:18 Alkaline Phosphatase 90 U/L (45-117) 05/27/21 05:18 Triglycerides 68 mg/dL (<150) 05/26/21 05:02 Cholesterol 110 mg/dL (<200) 05/26/21 05:02 HDL Cholesterol 49 mg/dL (40-60) 05/26/21 05:02 Cholesterol/HDL Ratio 2.24 05/26/21 05:02 Lipase 87 U/L (73-393) 05/27/21 05:18 Home Medications: Insulin Detemir [Levemir] 30 units SQ Q12H 05/25/21 Metformin ER [Glucophage ER*] 2 tab PO Q12H 05/25/21 Lisinopril [Zestril] 2.5 mg PO DAILY #30 tablet 05/27/21 New Medications: Lisinopril [Zestril] 2.5 mg PO DAILY #30 tablet Physician Discharge Instructions: Patient presented with abdominal pain. Patient found to have elevated lipase level. Pancreatitis was suspected. Abdominal ultrasound showed cholelithiasis without cholecystitis. Patient also found to have a 9.3 x 6.0 x 10.9 cm right inguinal hernia containing bowel without any obstruction. The patient was observed. Patient continued doing well. Surgery was consulted. No surgical intervention was required. His diet was advanced. Patient tolerating diet. No significant nausea or vomiting noted. At discharge patient will continue with a GI soft diet. Recommended that the patient follow-up with surgery as an outpatient to further evaluate his gallstones and inguinal hernia. Patient would benefit with outpatient hernia repair. No heavy lifting, pushing or pulling is recommended. Recommend follow-up with PCP to follow-up this hospitalization. Patient with diabetes mellitus type 2. Hemoglobin A1c 8.3. Patient currently takes medication. At discharge he will continue with his medications including Metformin at 1000 mg 1 pill twice daily and Levemir 30 units subcu twice daily. Recommend to maintain blood sugar less than 140 fasting and less than 200 after meals. Further adjustment can be done by his PCP. Recommend follow-up with PCP to further monitor and address his diabetes. Patient with hypertension. Recommend to start low-dose lisinopril 2.5 mg daily at discharge. Recommend to maintain blood pressure less than 130/80. Further adjustment can be done by his PCP. Hold if blood pressure systolic less than 110. Diet: GI soft Activity: Ad mo Followup: NONE,NONE [Primary Care Provider] - Time spent managing pt's care (in minutes): 55
[2021-05-27 12:43] VITALS: BP 166/85; TEMP 98.3
== END 2021-05-27 13:54 | disposition home or self-care (01) | DRG 440 ==
LOC: ER 03:38 → ERHOLD 11:55 → 2ND 17:03
PROVIDERS: ADMIT Hospitalist; ATTEND Family Medicine
DX: K85.10 Biliary acute pancreatitis without necrosis or infection (principal); I10 Essential (primary) hypertension; E11.65 Type 2 diabetes mellitus with hyperglycemia; K40.90 Unilateral inguinal hernia, without obstruction or gangrene, not specified as recurrent; K80.80 Other cholelithiasis without obstruction; Z88.0 Allergy status to penicillin; Z79.4 Long term (current) use of insulin; Z79.84 Long term (current) use of oral hypoglycemic drugs; Z79.899 Other long term (current) drug therapy; Z20.822 Contact with and (suspected) exposure to COVID-19
CPT/HCPCS: 0240U; 36415; 71045; 74177; 76705; 80048; 80053; 80061; 80076; 81003; 82947; 83036; 83605; 83690; 83735; 84145; 84484; 85025; 85610; 85730; 93005; 96361; 96365; 96375; 99285; J1170; J2405; J7030; J7040; Q9967

== ENCOUNTER 2022-07-02 02:24 | Observation (INO) | payer OTHER ==
[2022-07-02] MEDS ORDERED: NA CHLORIDE 0.9% 1,000 ML ONE (03:03)
[2022-07-02] MEDS ORDERED: ASPIRIN 81 MG CHEWABLE TABLET ONE (03:03)
[2022-07-02 03:19] LABS: Urine Blood Negative (Negative); Urine Glucose 2+ (Negative); Urine Protein Negative (Negative)
[2022-07-02 03:28] LABS: Absolute Lymphocytes (CBC) 1.2 K/uL (0.7-4.9); Hematocrit 45.4 % (39.6-49.0); Lymphocytes % 26.1 % (15.3-44.8); MCV 88.1 fL (80-100); MPV 8.5 fL (7.6-11.3); Protime INR 0.97; RBC Red Blood Cell Count 5.15 M/uL (4.33-5.43)
--- NOTE | 2022-07-02 03:37 | EDPHYS ---
Physician Documentation [facility] Name: Marek Paul III Age: 77 yrs Sex: Male : 1945 Arrival Date: 07/02/2022 Time: 02:27 Bed 14 Private MD: ANA ROSA Physician Jose Acosta HPI: 07/02 03:31 This 77 yrs old Male presents to ER via Ambulatory with complaints of Chest royce Pain, High Blood Sugar. 03:31 The patient or guardian reports chest pain that is located primarily in the substernal royce area. Onset: last night, 1 day(s) ago. The pain does not radiate. Associated signs and symptoms: Pertinent positives: shortness of breath. The chest pain is described as a pressure, squeezing. Duration: The patient or guardian reports a single episode, that lasted 15 minute(s). Severity of pain: At its worst the pain was mild moderate in the emergency department the pain is unchanged. The patient has not experienced similar symptoms in the past. Historical: - Allergies: 02:46 PENICILLINS; ll3 - Home Meds: 02:46 Insulin 30 U SQ BID [Active]; metformin 1,000 mg Oral tab 1 tab 2 times per day ll3 [Active]; - PMHx: 02:46 diabetes mellitus; Pancreatitis; ll3 - PSHx: 02:46 None; ll3 - Immunization history:: Client reports receiving the 2nd dose of the Covid vaccine. - Social history:: Smoking status: Patient denies any tobacco usage or history of. - Family history:: not pertinent. ROS: 03:31 Constitutional: Negative for fever, chills, and weight loss, Eyes: Negative for injury, royce pain, redness, and discharge, ENT: Negative for injury, pain, and discharge, Neck: Negative for injury, pain, and swelling, Cardiovascular: Negative for chest pain, palpitations, and edema, Respiratory: Negative for shortness of breath, cough, wheezing, and pleuritic chest pain, Abdomen/GI: Negative for abdominal pain, nausea, vomiting, diarrhea, and constipation, Back: Negative for injury and pain, : Negative for injury, bleeding, discharge, and swelling, MS/Extremity: Negative for injury and deformity, Skin: Negative for injury, rash, and discoloration, Neuro: Negative for headache, weakness, numbness, tingling, and seizure, Psych: Negative for depression, anxiety, suicide ideation, homicidal ideation, and hallucinations, Allergy/Immunology: Negative for hives, rash, and allergies, Endocrine: Negative for neck swelling, polydipsia, polyuria, polyphagia, and marked weight changes, Hematologic/Lymphatic: Negative for swollen nodes, abnormal bleeding, and unusual bruising. Exam: 03:31 Constitutional: This is a well developed, well nourished patient who is awake, alert, royce and in no acute distress. Head/Face: Normocephalic, atraumatic. Eyes: Pupils equal round and reactive to light, extra-ocular motions intact. Lids and lashes normal. Conjunctiva and sclera are non-icteric and not injected. Cornea within normal limits. Periorbital areas with no swelling, redness, or edema. ENT: Nares patent. No nasal discharge, no septal abnormalities noted. Tympanic membranes are normal and external auditory canals are clear. Oropharynx with no redness, swelling, or masses, exudates, or evidence of obstruction, uvula midline. Mucous membranes moist. Neck: Trachea midline, no thyromegaly or masses palpated, and no cervical lymphadenopathy. Supple, full range of motion without nuchal rigidity, or vertebral point tenderness. No Meningismus. Chest/axilla: Normal chest wall appearance and motion. Nontender with no deformity. No lesions are appreciated. Cardiovascular: Regular rate and rhythm with a normal S1 and S2. No gallops, murmurs, or rubs. Normal PMI, no JVD. No pulse deficits. Respiratory: Lungs have equal breath sounds bilaterally, clear to auscultation and percussion. No rales, rhonchi or wheezes noted. No increased work of breathing, no retractions or nasal flaring. Abdomen/GI: Soft, non-tender, with normal bowel sounds. No distension or tympany. No guarding or rebound. No evidence of tenderness throughout. Back: No spinal tenderness. No costovertebral tenderness. Full range of motion. Male : Normal genitalia with no discharge or lesions. Skin: Warm, dry with normal turgor. Normal color with no rashes, no lesions, and no evidence of cellulitis. MS/ Extremity: Pulses equal, no cyanosis. Neurovascular intact. Full, normal range of motion. Neuro: Awake and alert, GCS 15, oriented to person, place, time, and situation. Cranial nerves II-XII grossly intact. Motor strength 5/5 in all extremities. Sensory grossly intact. Cerebellar exam normal. Normal gait. Psych: Awake, alert, with orientation to person, place and time. Behavior, mood, and affect are within normal limits. 03:31 ECG was reviewed by the Attending Physician. Vital Signs: 02:43 BP 153 / 96; Pulse 88; Resp 22; Temp 98.9(O); Pulse Ox 96% on R/A; Weight 76.2 kg (R); ll3 Height 5 ft. 7 in. (170.18 cm) (R); Pain 7/10; 03:45 BP 143 / 106; Pulse 85; Resp 20; Pulse Ox 95% on R/A; Pain 3/10; pf1 04:38 BP 140 / 84; Pulse 75; Resp 21; Pulse Ox 99% on R/A; Pain 0/10; pf1 05:15 BP 141 / 66; Pulse 82; Resp 20; Temp 98.9; Pulse Ox 100% ; Pain 0/10; pf1 02:43 Body Mass Index 26.31 (76.20 kg, 170.18 cm) ll3 MDM: 02:34 Patient medically screened. royce 03:33 Differential diagnosis: abnormal EKG, acute myocardial infarction, acute pericarditis, royce anxiety, coronary artery disease chest wall pain, hiatal hernia, pancreatitis, peptic ulcer disease, pleurisy, stable angina, unstable angina. HEART Score: History: Slightly Suspicious (0), ECG: Normal (0), Age: > or = 65 years (2), Risk Factors: > or = 3 Risk factors for atherosclerotic disease (2), [Hypertension] [+ Family HX] [Obesity] Troponin: < or = 1 x Normal Limit (0). The patient was given aspirin in the Emergency Department. ELVIRA Risk Score: 1 - patient's age is greater or equal to 65 years, 1 - Three or more CAD risk factors, 1- Known CAD, 1 - ASA use in past 7 days, TOTAL SCORE = 4. Data reviewed: vital signs, nurses notes, lab test result(s), EKG, radiologic studies, plain films. Consideration of Admission/Observation Patient was admitted/placed on observation. Escalation of care including admission/observation considered. I considered the following discharge prescriptions or medication management in the emergency department Medications were administered in the Emergency Department. See JUL. 07/02 02:52 Order name: Basic Metabolic Panel; Complete Time: 04:02 [facility] 07/02 02:52 Order name: CBC with Diff; Complete Time: 04:54 [facility] 07/02 02:52 Order name: LFT's; Complete Time: 04:02 [facility] 07/02 02:52 Order name: Magnesium; Complete Time: 04:02 [facility] 07/02 02:52 Order name: NT PRO-BNP; Complete Time: 04:02 [facility] 07/02 02:52 Order name: PT-INR; Complete Time: 03:30 [facility] 07/02 02:52 Order name: Troponin HS; Complete Time: 04:02 [facility] 07/02 02:52 Order name: XRAY Chest (1 view) [facility] 07/02 02:52 Order name: Lipase; Complete Time: 04:02 [facility] 07/02 02:52 Order name: SARS RAPID; Complete Time: 04:54 [facility] 07/02 02:55 Order name: Glucose, Ancillary Testing; Complete Time: 03:30 [facility] 07/02 03:19 Order name: Urine Dipstick-Ancillary; Complete Time: 03:30 [facility] 07/02 03:43 Order name: Manual Differential; Complete Time: 04:54 [facility] 07/02 02:52 Order name: EKG; Complete Time: 02:52 [facility] 07/02 02:52 Order name: Cardiac monitoring; Complete Time: 02:53 [facility] 07/02 02:52 Order name: EKG - Nurse/Tech; Complete Time: 02:53 [facility] 07/02 02:52 Order name: IV Saline Lock; Complete Time: 03:40 [facility] 07/02 02:52 Order name: Labs collected and sent; Complete Time: 03:23 [facility] 07/02 02:52 Order name: O2 Per Protocol; Complete Time: 02:53 [facility] 07/02 02:52 Order name: O2 Sat Monitoring; Complete Time: 02:53 [facility] 07/02 02:52 Order name: Urine Dipstick-Ancillary (obtain specimen); Complete Time: 03:19 royce EC:31 Rate is 82 beats/min. Rhythm is regular. QRS [place] is Normal. VA interval is normal. QRS royce interval is normal. QT interval is normal. No Q waves. T waves are Normal. No ST changes noted. Clinical impression: NSR w/ Non-specific ST/T Changes and No evidence of ischemia. Interpreted by me. Reviewed by me. Administered Medications: 03:00 Drug: Aspirin Chewable Tablet 162 mg Route: PO; pf1 03:36 Follow up: Response: No adverse reaction; Marked relief of symptoms; Pain is decreased pf1 03:40 Drug: NS 0.9% 1000 ml Route: IV; Rate: 1 bolus; Site: right forearm; pf1 04:04 Follow up: Response: No adverse reaction pf1 04:40 Follow up: IV Status: Completed infusion; IV Intake: 1000ml pf1 03:55 Drug: Lovenox (enoxaparin) 1 mg/kg Route: Sub-Q; Site: right lower abdomen; pf1 04:04 Follow up: Response: No adverse reaction pf1 04:35 Drug: Pepcid (famotidine) 20 mg Route: IVP; Site: right forearm; pf1 05:07 Follow up: Response: No adverse reaction; Marked relief of symptoms pf1 Point of Care Testing: Blood Glucose: 02:49 Blood Glucose: 234 mg/dL; ll3 Ranges: Critical Glucose Levels:Adult <50 mg/dl or >400 mg/dl <40 mg/dl or >180 mg/dl Disposition Summary: 07/02/22 03:36 Hospitalization Ordered Hospitalization Status: Observation royce Provider: Micha Kendrick cha Location: Telemetry/MedSurg (observation) royce Condition: Stable royce Problem: new royce Symptoms: have improved royce Bed/Room Type: Standard [facility] Room Assignment: 418(07/02/22 05:05) cg Diagnosis - Chest pain, unspecified royce - Type 2 diabetes mellitus with hyperglycemia royce - Coronavirus infection, unspecified royce - SARS-associated coronavirus as the cause of diseases classified elsewhere royce Forms: - Medication Reconciliation Form royce - SBAR form royce Signatures: Dispatcher [employer] EDJose Mo MD MD cha Garcia, Cindy RN RN cg Macarena Fitzpatrick RN RN ll3 Lety Mtz PA-C PA-C sb4 Kassandra queen RN RN pf1 Corrections: (The following items were deleted from the chart) 05:05 03:36 royce cg
--- NOTE | 2022-07-02 03:37 | ER ---
Nurse's Notes [facility] Name: Marek Paul III Age: 77 yrs Sex: Male : 1945 Arrival Date: 07/02/2022 Time: 02:27 Bed 14 Private MD: Diagnosis: Chest pain, unspecified;Type 2 diabetes mellitus with hyperglycemia;Coronavirus infection, unspecified;SARS-associated coronavirus as the cause of diseases classified elsewhere Presentation: 07/02 02:43 Chief complaint: Patient states: States [facility] but I know it was not ll3 my metformin", states been having high blood sugar X4 days, states gave self 90 U of insulin throughout day today, c/o chest pain since this morning 12/01. Coronavirus screen: Vaccine status: Patient reports receiving the 2nd dose of the covid vaccine. At this time, the client does not indicate any symptoms associated with coronavirus-19. Ebola Screen: No symptoms or risks identified at this time. Initial Sepsis Screen: Does the patient meet any 2 criteria? No. Patient's initial sepsis screen is negative. Does the patient have a suspected source of infection? No. Patient's initial sepsis screen is negative. Risk Assessment: Do you want to hurt yourself or someone else? Patient reports no desire to harm self or others. Onset of symptoms was July 01, 2022. 02:43 Method Of Arrival: Ambulatory ll3 02:43 Acuity: SAPNA 2 ll3 Triage Assessment: 02:46 General: Appears uncomfortable, Behavior is calm, cooperative. Pain: Complains of pain ll3 in right breast Pain radiates to back Pain currently is 7 out of 10 on a pain scale. at worst was 8 out of 10 on a pain scale. Pain began 1 day ago. Is continuous. Cardiovascular: Patient's skin is warm and dry. Chest pain is described as mild, is located in right anterior chest wall radiates back began 1 day ago episodes are continuous. Respiratory: Respiratory effort is even, unlabored, Respiratory pattern is regular, symmetrical. Derm: Skin is pink, warm \\T\\ dry. Historical: - Allergies: 02:46 PENICILLINS; ll3 - Home Meds: 02:46 Insulin 30 U SQ BID [Active]; metformin 1,000 mg Oral tab 1 tab 2 times per day ll3 [Active]; - PMHx: 02:46 diabetes mellitus; Pancreatitis; ll3 - PSHx: 02:46 None; ll3 - Immunization history:: Client reports receiving the 2nd dose of the Covid vaccine. - Social history:: Smoking status: Patient denies any tobacco usage or history of. - Family history:: not pertinent. Screenin:[facility] ED Fall Risk Assessment (Adult) History of falling in the last 3 months, pf1 including since admission No falls in past 3 months (0 pts) Confusion or Disorientation No (0 pts) Intoxicated or Sedated No (0 pts) Impaired Gait No (0 pts) Mobility Assist Device Used No (0 pt) Altered Elimination No (0 pt) Score/Fall Risk Level 0 - 2 = Low Risk Oriented to surroundings, Maintained a safe environment, Educated pt \\T\\ family on fall prevention, incl call for assistance when getting out of bed, Assessed \\T\\ reinforced patient's understanding of fall precautions, Provided non-skid footwear, Hourly rounding (assess needs \\T\\ fall precautionary measures) done, Used ambulatory aids as needed (educated on \\T\\ assisted with), Used gait belt as appropriate. Abuse screen: Denies threats or abuse. Nutritional screening: No deficits noted. Tuberculosis screening: No symptoms or risk factors identified. Assessment: 02:50 General: Appears comfortable, well groomed, well developed, Behavior is calm, pf1 cooperative, appropriate for age, quiet. 02:50 Pain: Complains of pain in chest Pain currently is 4 out of 10 on a pain scale. Pain pf1 began yesterday with a pain of 7. Neuro: No deficits noted. Level of Consciousness is awake, alert, obeys commands, Oriented to person, place, time, situation. Cardiovascular: Reports chest pain, since yesterday Capillary refill < 3 seconds Patient's skin is warm and dry. Respiratory: Reports cough that is non-productive, Airway is patent Trachea midline Respiratory effort is even, unlabored, Breath sounds are clear bilaterally. GI: No deficits noted. Abdomen is flat, non-distended, Bowel sounds present X 4 quads. Abd is soft and non tender X 4 quads. : No deficits noted. No signs and/or symptoms were reported regarding the genitourinary system. EENT: No deficits noted. No signs and/or symptoms were reported regarding the EENT system. 03:50 Reassessment: Patient appears in no apparent distress at this time. Patient and/or pf1 family updated on plan of care and expected duration. Pain level reassessed. Patient is alert, oriented x 3, equal unlabored respirations, skin warm/dry/pink. Patient states feeling better. Patient states symptoms have improved. 04:35 Reassessment: Patient appears in no apparent distress at this time. Patient and/or pf1 family updated on plan of care and expected duration. Pain level reassessed. Patient is alert, oriented x 3, equal unlabored respirations, skin warm/dry/pink. Patient states feeling better. Patient states symptoms have improved. Patient playing on cell phone at this time. Patient provided a sandwich and some water.. Vital Signs: 02:43 BP 153 / 96; Pulse 88; Resp 22; Temp 98.9(O); Pulse Ox 96% on R/A; Weight 76.2 kg (R); ll3 Height 5 ft. 7 in. (170.18 cm) (R); Pain 7/10; 03:45 BP 143 / 106; Pulse 85; Resp 20; Pulse Ox 95% on R/A; Pain 3/10; pf1 04:38 BP 140 / 84; Pulse 75; Resp 21; Pulse Ox 99% on R/A; Pain 0/10; pf1 05:15 BP 141 / 66; Pulse 82; Resp 20; Temp 98.9; Pulse Ox 100% ; Pain 0/10; pf1 02:43 Body Mass Index 26.31 (76.20 kg, 170.18 cm) ll3 ED Course: 02:27 Patient arrived in ED. [id number] 02:32 Kassandra queen, FARRUKH is Primary Nurse. pf1 02:34 Jose Acosta MD is Attending Physician. royce 02:46 Triage completed. ll3 02:46 Arm band placed on Patient placed in an exam room, on a stretcher, on pulse oximetry. ll3 02:47 Patient has correct armband on for positive identification. Placed in gown. Bed in low pf1 position. Call light in reach. Client placed on continuous cardiac and pulse oximetry monitoring. NIBP monitoring applied. dock attendant on. 03:14 XRAY Chest (1 view) In Process Unspecified. EDMS 03:19 SARS RAPID Sent. rv1 03:19 Basic Metabolic Panel Sent. rv1 03:19 CBC with Diff Sent. rv1 03:19 LFT's Sent. rv1 03:19 Magnesium Sent. rv1 03:19 NT PRO-BNP Sent. rv1 03:19 PT-INR Sent. rv1 03:19 Troponin HS Sent. rv1 03:19 Lipase Sent. rv1 03:36 Micha Kendrick is Hospitalizing Provider. royce 03:38 Inserted saline lock: 20 gauge in right forearm, using aseptic technique. tw5 03:40 SARS RAPID Sent. rv1 03:40 Basic Metabolic Panel Sent. rv1 03:40 CBC with Diff Sent. rv1 03:40 LFT's Sent. rv1 03:40 Magnesium Sent. rv1 03:40 NT PRO-BNP Sent. rv1 03:40 Troponin HS Sent. rv1 03:58 No provider procedures requiring assistance completed. Patient maintains SpO2 pf1 saturation greater than 95% on room air. 05:20 Patient admitted, IV remains in place. pf1 Administered Medications: 03:00 Drug: Aspirin Chewable Tablet 162 mg Route: PO; pf1 03:36 Follow up: Response: No adverse reaction; Marked relief of symptoms; Pain is decreased pf1 03:40 Drug: NS 0.9% 1000 ml Route: IV; Rate: 1 bolus; Site: right forearm; pf1 04:04 Follow up: Response: No adverse reaction pf1 04:40 Follow up: IV Status: Completed infusion; IV Intake: 1000ml pf1 03:55 Drug: Lovenox (enoxaparin) 1 mg/kg Route: Sub-Q; Site: right lower abdomen; pf1 04:04 Follow up: Response: No adverse reaction pf1 04:35 Drug: Pepcid (famotidine) 20 mg Route: IVP; Site: right forearm; pf1 05:07 Follow up: Response: No adverse reaction; Marked relief of symptoms pf1 Medication: 05:06 VIS not applicable for this client. pf1 Point of Care Testing: Blood Glucose: 02:49 Blood Glucose: 234 mg/dL; ll3 Ranges: Intake: 04:40 IV: 1000ml; Total: 1000ml. pf1 Outcome: 03:36 Decision to Hospitalize by Provider. royce 05:18 Admitted to Tele accompanied by daniel, via wheelchair, room 418, with chart, Report pf1 called to FARRUKH Orellana 05:18 Condition: improved 05:18 Instructed on the need for admit, Demonstrated understanding of instructions. 05:22 Patient left the ED. pf1 Signatures: Dispatcher [employer] Jose Landrum MD MD cha Wood, Cynthia tw5 Irina Gonzalez6 Macarena Fitzpatrick RN RN ll3 Kassandra queen RN RN pf1 Mirian Zeng [facility]
[2022-07-02] MEDS ORDERED: ENOXAPARIN 80 MG/0.8 ML SQ ONE (03:42)
[2022-07-02 03:54] LABS: Albumin 2.9 g/dL (3.4-5.0); Bilirubin Direct 0.1 mg/dL (0-0.2); Bilirubin Total 0.2 mg/dL (0.2-1.0); Magnesium 2.1 mg/dL (1.6-2.4); Potassium 3.5 mmol/L (3.5-5.1); Protein, Total 7.4 g/dL (6.4-8.2); Troponin High Sensitivity 13.8 pg/mL (<58.9)
[2022-07-02 04:17] LABS: SARS-CoV-2 Antigen Rapid Res Positive (Negative)
--- NOTE | 2022-07-02 04:20 | P.HP ---
Certification for Inpatient Patient admitted to: Observation With expected LOS: <2 Midnights Patient will require the following post-hospital care: None Practitioner: I am a practitioner with admitting privileges, knowledge of patient current condition, hospital course, and medical plan of care. Services: Services provided to patient in accordance with Admission requirements found in Title 42 Section 412.3 of the Code of Federal Regulations Patient History Date of Service: 07/02/22 Primary Care Provider: ILIANA Reason for admission: Chest Pain History of Present Illness: Patient is a 77 year old male with past medical history of insulin dependent type 2 diabetes and hypertension who presented to the emergency department with complaints of chest pain. He states the pain feels like a squeezing sensation, does not radiate, rates it a 7/10, and is associated with shortness of breath. He also reports a recent change in his diabetes medications, but is not sure exactly what the change was. His cardiac workup was unremarkable in the ED- troponin, EKG, chest xray. He was however found to be covid positive. He was given aspirin, lovenox, and 1L fluid. ED provider wishes to admit patient for observation for ACS rule out. Allergies Penicillins Allergy (Mild, Verified 05/25/21 21:53) Hives/Rash Home medications list reviewed: Yes Home Medications: Insulin Detemir [Levemir] 30 units SQ Q12H 05/25/21 Metformin ER [Glucophage ER*] 2 tab PO Q12H 05/25/21 Lisinopril [Zestril] 2.5 mg PO DAILY #30 tablet 05/27/21 - Past Medical/Surgical History Diabetic: Yes -: Type 2 Diabetes, Insulin Dependent -: Hypertension Past Surgical History: Patient denies surgical history Psychosocial/ Personal History: Patient is a . He has been 7 times. - Family History Family History: Reviewed- Non-Contributory - Social History Smoking Status: Never smoker Alcohol use: No CD- Drugs: No Caffeine use: Yes Place of Residence: Home Review of Systems Respiratory: Cough Cardiovascular: Chest Pain Physical Examination - Vital Signs Temperature: 98.9 F Blood Pressure: 143/106 Pulse: 85 Respirations: 20 Pulse Ox (%): 95 - Physical Exam General: Alert, In no apparent distress HEENT: Atraumatic, EOMI, Sclerae nonicteric Neck: Supple, 2+ carotid pulse no bruit Respiratory: Clear to auscultation bilaterally, Normal air movement Cardiovascular: Regular rate/rhythm, Normal S1 S2 Gastrointestinal: Normal bowel sounds, No tenderness Musculoskeletal: No tenderness Integumentary: No rashes Neurological: Normal speech, Normal affect - Studies Laboratory Data (last 24 hrs) 07/02/22 03:10: PT 10.7, INR 0.97 07/02/22 03:10: WBC 4.40, Hgb 15.1, Hct 45.4, Plt Count 150 L 07/02/22 03:10: Sodium 136, Potassium 3.5, BUN 11, Creatinine 1.00, Glucose 219 H, Magnesium 2.1, Total Bilirubin 0.2, AST 47 H, ALT 56, Alkaline Phosphatase 104, Lipase 225 Assessment and Plan - Problems (Diagnosis) (1) Chest pain Current Visit: Yes Status: Acute Qualifiers: Chest pain type: unspecified Qualified Code(s): R07.9 - Chest pain, unspecified (2) Hypertension Current Visit: Yes Status: Chronic Qualifiers: Hypertension type: primary hypertension Qualified Code(s): I10 - Essential (primary) hypertension (3) COVID-19 Current Visit: Yes Status: Acute (4) Type 2 diabetes mellitus Current Visit: Yes Status: Chronic Qualifiers: Diabetes mellitus rough patcher insulin use: with rough patcher use Diabetes mellitus complication status: with hyperglycemia Qualified Code(s): E11.65 - Type 2 diabetes mellitus with hyperglycemia; Z79.4 - FDC (current) use of insulin - Plan Patient is admitted for observation, for ACS rule out. Monitor on telemetry, cardiology consult. Trend troponin. Initial negative. Aspirin and atorvastatin daily. [facility] accu checks with moderate sliding scale and diabetic diet. Check A1c, TSH, and lipid panel in the morning. Isolation precautions in place for COVID-19. Patient only reports cough. Monitor and replete electrolytes per protocol. Reconcile and continue home medications. Lovenox for VTE prophylaxis. Full code. Discharge Plan: Home Plan to discharge in: 24 Hours - Advance Directives Does patient have a Living Will: No Does patient have a Durable POA for Healthcare: No - Code Status/Comfort Care Code Status Assessed: Yes Code Status: Full Code Physician Review: Patient Assessed, Agree with Above Assessment and Plan Critical Care: No Time Spent Managing Pts Care (In Minutes): 50
[2022-07-02] MEDS ORDERED: FAMOTIDINE 20 MG/2 ML VIAL IV ONE (04:36)
[2022-07-02 04:53] LABS: Blood Morphology Comment NOT SEEN (NOT SEEN); Platelet Estimate ADEQ
[2022-07-02] MEDS ORDERED: ONDANSETRON 4 MG/2 ML VIAL IV PRN (05:23)
[2022-07-02] MEDS ORDERED: ACETAMINOPHEN 500 MG TAB PO PRN (05:23)
[2022-07-02] MEDS ORDERED: BENZONATATE 100 MG CAP PO PRN (05:23)
[2022-07-02 05:55] VITALS: O2SAT 100
[2022-07-02 06:05] VITALS: BMI 25.3
[2022-07-02] MEDS ORDERED: POTASSIUM 25 MEQ EFFERV TAB PO ONE (08:00)
[2022-07-02] MEDS ORDERED: ASPIRIN EC 81 MG TAB PO SCH (09:00)
[2022-07-02] MEDS ORDERED: ASCORBIC ACID 500 MG TABLET PO SCH (09:00)
[2022-07-02] MEDS ORDERED: ENOXAPARIN 40 MG/0.4 ML SQ SCH (09:00)
[2022-07-02] MEDS ORDERED: ZINC SULFATE 220 MG CAP PO SCH (09:00)
[2022-07-02] MEDS: INSULIN -REGULAR HUMAN 50 UNIT/0.5 ML ML SQ SCH ×2 (09:21→13:08)
--- NOTE | 2022-07-02 11:39 | RAD REPORT ---
EXAM DESCRIPTION: RAD - Chest Single View - 07/02/2022 3:12 am CLINICAL HISTORY: CHEST PAIN TECHNIQUE: Frontal view of the chest. COMPARISON: XR Chest dated 03/01/2022 FINDINGS: Lungs: Unremarkable. No consolidation. Pleural space: Unremarkable. No pneumothorax. Heart: Unremarkable. No cardiomegaly. Mediastinum: Unremarkable. Bones/joints: Unremarkable. IMPRESSION: No acute disease. Electronically signed by: Renato Rousseau MD 07/02/2022 3:29 AM CLAIMS SUPPORT SPECIALIST Due to temporary technical issues with the PACS/Fluency reporting system, reports are being signed by the in house radiologists without review as a courtesy to insure prompt reporting. The interpreting radiologist is fully responsible for the content of the report.
[2022-07-02 12:26] VITALS: BP 155/84; TEMP 98.7
--- NOTE | 2022-07-02 14:57 | P.DS ---
Admission Date: 07/02/22 Discharge Date: 07/02/22 Primary Care Provider: ILIANA Disposition: ROUTINE DISCHARGE Discharge Condition: FAIR Reason for Admission: Chest Pain - Problems (1) COVID-19 Current Visit: Yes Status: Acute (2) Chest pain Current Visit: Yes Status: Acute Qualifiers: Chest pain type: unspecified Qualified Code(s): R07.9 - Chest pain, unspecified (3) Hypertension Current Visit: Yes Status: Chronic Qualifiers: Hypertension type: primary hypertension Qualified Code(s): I10 - Essential (primary) hypertension (4) Type 2 diabetes mellitus Current Visit: Yes Status: Chronic Qualifiers: Diabetes mellitus long term care social worker insulin use: with mcc use Diabetes mellitus complication status: with hyperglycemia Qualified Code(s): E11.65 - Type 2 diabetes mellitus with hyperglycemia; Z79.4 - retirement (current) use of insulin Brief History of Present Illness: Patient is a 77 year old male with past medical history of insulin dependent type 2 diabetes and hypertension who presented to the emergency department with complaints of chest pain associated with shortness of breath. His cardiac workup was unremarkable in the ED- troponin negative, EKG with no ischemic changes, chest xray showed no acute disease. He was found to be covid positive. He was given aspirin, lovenox, and 1L fluid. Patient placed on observation for ACS rule out. Hospital Course: Troponin trended negative. Patient was chest pain-free during the hospital stay. ACS ruled out. Patient is currently symptomatic with stable vitals. He is deemed clinically stable for discharge. Patient will follow up with cardiology Dr. Kemp for arrangement for stress test. He is discharged with aspirin and Lipitor to add to his home medications. Vital Signs/Physical Exam: Temp Pulse Resp BP Pulse Ox 98.7 F 81 14 155/84 H 95 07/02/22 12:00 07/02/22 12:00 07/02/22 12:00 07/02/22 12:00 07/02/22 12:00 General: Alert, In no apparent distress, Oriented x3 HEENT: Mucous membr. moist/pink Neck: JVD not distended Respiratory: Clear to auscultation bilaterally, Normal air movement Cardiovascular: No edema, Regular rate/rhythm, Normal S1 S2 Gastrointestinal: Soft and benign, Non-distended, No tenderness Musculoskeletal: No swelling Integumentary: No rashes Neurological: Normal strength at 5/5 x4 extr Laboratory Data at Discharge: WBC 4.40 K/uL (4.3-10.9) 07/02/22 03:10 Hgb 15.1 g/dL (13.6-17.9) 07/02/22 03:10 Hct 45.4 % (39.6-49.0) 07/02/22 03:10 Plt Count 150 K/uL (152-406) L 07/02/22 03:10 PT 10.7 SECONDS (9.5-12.5) 07/02/22 03:10 INR 0.97 07/02/22 03:10 Sodium 136 mmol/L (136-145) 07/02/22 03:10 Potassium 3.5 mmol/L (3.5-5.1) 07/02/22 03:10 BUN 11 mg/dL (7-18) 07/02/22 03:10 Creatinine 1.00 mg/dL (0.70-1.30) 07/02/22 03:10 Glucose 219 mg/dL (74-106) H 07/02/22 03:10 Magnesium 2.1 mg/dL (1.6-2.4) 07/02/22 03:10 Total Bilirubin 0.2 mg/dL (0.2-1.0) 07/02/22 03:10 AST 47 U/L (15-37) H 07/02/22 03:10 ALT 56 U/L (16-61) 07/02/22 03:10 Alkaline Phosphatase 104 U/L (45-117) 07/02/22 03:10 Triglycerides 147 mg/dL (<150) 07/02/22 09:47 Cholesterol 121 mg/dL (<200) 07/02/22 09:47 HDL Cholesterol 35 mg/dL (40-60) L 07/02/22 09:47 Cholesterol/HDL Ratio 3.46 07/02/22 09:47 Lipase 225 U/L (73-393) 07/02/22 03:10 Home Medications: Insulin Detemir [Levemir] 30 units SQ Q12H 05/25/21 Metformin ER [Glucophage ER*] 2 tab PO Q12H 05/25/21 Lisinopril [Zestril] 2.5 mg PO DAILY #30 tablet 05/27/21 Ascorbic Acid [Vitamin C*] 500 mg PO BID #60 tab 07/02/22 Aspirin [Aspirin EC] 81 mg PO DAILY #30 tab 07/02/22 Atorvastatin Calcium [Lipitor] 20 mg PO BEDTIME #30 tab 07/02/22 Benzonatate [Tessalon Perle*] 100 mg PO TID PRN #30 cap 07/02/22 Zinc Sulfate [Zinc Sulfate*] 220 mg PO DAILY #30 cap 07/02/22 New Medications: Aspirin [Aspirin EC] 81 mg PO DAILY #30 tab Atorvastatin Calcium [Lipitor] 20 mg PO BEDTIME #30 tab Benzonatate [Tessalon Perle*] 100 mg PO TID PRN #30 cap PRN Reason: Cough Ascorbic Acid [Vitamin C*] 500 mg PO BID #60 tab Zinc Sulfate [Zinc Sulfate*] 220 mg PO DAILY #30 cap Diet: ADA Activity: Ad mo Followup: Tobi Kemp MD [ACTIVE - CAN ADMIT] - 1 Week [facility] [Primary [facility] - 1-2 Weeks
[2022-07-02] MEDS ORDERED: ATORVASTATIN 40 MG TAB PO SCH (21:00)
== END 2022-07-02 16:20 | disposition home or self-care (01) ==
LOC: ER 02:24 → ERHOLD 04:14 → 4TH 05:06
PROVIDERS: ADMIT Internal Medicine; ATTEND Internal Medicine
DX: R07.9 Chest pain, unspecified (principal); U07.1 COVID-19; R05.9 Cough, unspecified; E11.65 Type 2 diabetes mellitus with hyperglycemia; I10 Essential (primary) hypertension; Z88.0 Allergy status to penicillin; Z79.4 Long term (current) use of insulin
CPT/HCPCS: 85025; 80048; 36415; 83735; 85610; 80061; 82947 ×4; 80076; 81003; 83036; 84484 ×2; 83690; 83880; 71045; 87811; J1815 ×2; J1650 ×2; J7030; G0378

== ENCOUNTER 2022-10-25 16:25 | Inpatient (IN) | payer OTHER ==
[2022-10-25 17:21] LABS: Absolute Lymphocytes (CBC) 1.6 K/uL (0.7-4.9); Hematocrit 43.2 % (39.6-49.0); Lymphocytes % 20.2 % (15.3-44.8); MCV 88.9 fL (80-100); MPV 8.9 fL (7.6-11.3); RBC Red Blood Cell Count 4.86 M/uL (4.33-5.43)
[2022-10-25 17:33] LABS: Protime INR 0.96
[2022-10-25 17:38] LABS: Albumin 3.2 g/dL (3.4-5.0); Bilirubin Direct 0.2 mg/dL (0-0.2); Bilirubin Indirect, Calculated 0.2 mg/dL (0.2-0.8); Bilirubin Total 0.4 mg/dL (0.2-1.0); Magnesium 1.5 mg/dL (1.6-2.4); Protein, Total 7.2 g/dL (6.4-8.2); Troponin High Sensitivity 10.5 pg/mL (<58.9)
[2022-10-25] MEDS ORDERED: NA CHLORIDE 0.9% 500 ML ONE (17:57)
--- NOTE | 2022-10-25 17:58 | RAD REPORT ---
EXAM DESCRIPTION: RAD - Chest Single View - 10/25/2022 5:34 pm CLINICAL HISTORY: CHEST PAIN COMPARISON: Chest Single View dated 07/02/2022; Chest Single View dated 03/01/2022; Chest Pa And Lat (2 Views) dated 12/07/2021; Chest Single View dated 12/07/2021 FINDINGS: Lines: None. Lungs: No evidence of edema or pneumonia. Pleural: No significant pleural effusions or pneumothorax. Cardiac: The heart size is within normal limits. Mediastinum: Within normal limits. Bones: No acute fractures. Other: None IMPRESSION: No acute cardiopulmonary disease.
--- NOTE | 2022-10-25 17:58 | RAD REPORT ---
EXAM DESCRIPTION: RAD - Hand Left 3 View - 10/25/2022 5:34 pm CLINICAL HISTORY: hand swelling COMPARISON: No comparisons FINDINGS/IMPRESSION: No acute fracture. No malalignment. No significant focal degenerative changes. Remote fifth metacarpal fracture. Nonspecific soft tissue swelling along the medial aspect of the feliciano d. No radiopaque foreign body.
--- NOTE | 2022-10-25 19:47 | EDPHYS ---
Physician Documentation [facility] Name: Marek Paul III Age: 77 yrs Sex: Male : 1945 Arrival Date: 10/25/2022 Time: 16:25 Bed 2 Private MD: ED Physician Andrez Kidd HPI: 10/25 17:00 This 77 yrs old Male presents to ER via Ambulatory with complaints of Chest Pain, Hand jmm Swelling. 17:00 The patient or guardian reports pain, swelling. Is a 77-year-old male with history of jmm diabetes mellitus the presents emerged department with complaints of left hand swelling along the dorsum. Symptoms initially began when he was pricked by a needle while cleaning. Patient the next day slammed his hand on the hernández of a car. Patient states this morning around 1030 he developed substernal chest pain which lasted for about 10 to 15 minutes. Pain had resolved up until 30 minutes prior to arrival.. Historical: - Allergies: 16:55 PENICILLINS; ll1 - PMHx: 16:55 diabetes mellitus; Pancreatitis; ll1 - Immunization history:: Adult Immunizations up to date. - Social history:: Smoking status: unknown. ROS: 17:00 Constitutional: Negative for fever, chills, and weight loss. jmm 17:00 Cardiovascular: Positive for chest pain. 17:00 MS/extremity: Positive for pain, swelling. 17:00 All other systems are negative. Exam: 17:00 Constitutional: This is a well developed, well nourished patient who is awake, alert, jmm and in no acute distress. Head/Face: atraumatic. Eyes: EOMI, no conjunctival erythema appreciated ENT: Moist Mucus Membranes Neck: Trachea midline, Supple Chest/axilla: Normal chest wall appearance and motion. Cardiovascular: Regular rate and rhythm. No edema appreciated Respiratory: Normal respirations, no respiratory distress appreciated Abdomen/GI: Non distended Back: Normal ROM 17:00 Skin: Erythema noted to the dorsum of the left hand. 17:00 Neuro: Orientation: is normal, Mentation: is normal, Memory: is normal. 17:00 Psych: Behavior/mood is pleasant, cooperative. Vital Signs: 16:55 BP 152 / 103; Pulse 95; Resp 16; Temp 98; Pulse Ox 98% ; ll1 17:15 BP 145 / 85; Pulse 93; Resp 21; Pulse Ox 97% on R/A; Pain 6/10; ld1 18:02 BP 102 / 82; Pulse 78; Resp 22; Pulse Ox 98% on R/A; ld1 18:40 BP 149 / 88; Pulse 87; Resp 21; Pulse Ox 100% on R/A; ld1 19:00 BP 143 / 88; Pulse 82; Resp 23; Pulse Ox 99% ; vc1 20:00 BP 165 / 91; Pulse 84; Resp 21; Pulse Ox 95% on R/A; vc1 17:15 Pain Scale: Adult ld1 MDM: 17:00 Patient medically screened. [facility] 20:57 Differential diagnosis: Fracture, cellulitis, ACS, pneumonia, pulmonary embolism. Data [facility] reviewed: vital signs, nurses notes. Consideration of Admission/Observation Escalation of care including admission/observation considered. I considered the following discharge prescriptions or medication management in the emergency department Medications were administered in the Emergency Department. See MAR. Counseling: I had a detailed discussion with the patient and/or guardian regarding: the historical points, exam findings, and any diagnostic results supporting the discharge/admit diagnosis, lab results, radiology results, the need for further work-up and treatment in the hospital. 10/25 17:01 Order name: Basic Metabolic Panel; Complete Time: 17:40 [facility] 10/25 17:01 Order name: CBC with Diff; Complete Time: 17:29 [facility] 10/25 17:01 Order name: LFT's; Complete Time: 17:40 [facility] 10/25 17:01 Order name: Magnesium; Complete Time: 17:40 [facility] 10/25 17:01 Order name: NT PRO-BNP; Complete Time: 17:40 [facility] 10/25 17:01 Order name: PT-INR; Complete Time: 17:35 [facility] 10/25 17:01 Order name: Troponin HS; Complete Time: 17:40 [facility] 10/25 17:06 Order name: Blood Culture Adult (2) [facility] 10/25 17:06 Order name: Lactate w/ 2H reflex if indic.; Complete Time: 17:40 [facility] 10/25 17:06 Order name: Ptt, Activated; Complete Time: 17:29 [facility] 10/25 20:11 Order name: Lactate w/ 2H reflex if indic. vc1 06/03 20:50 Order name: Lactate Sepsis 2 HR Follow-up; Complete Time: 20:57 [facility] 10/25 17:01 Order name: XRAY Chest (1 view); Complete Time: 18:02 [facility] 10/25 17:07 Order name: Hand Left 3 View XRAY; Complete Time: 18:02 [facility] 10/25 17:01 Order name: EKG; Complete Time: 17:01 [facility] 10/25 17:01 Order name: Cardiac monitoring; Complete Time: 17:14 [facility] 10/25 17:01 Order name: EKG - Nurse/Tech; Complete Time: 17:14 [facility] 10/25 17:01 Order name: IV Saline Lock; Complete Time: 17:18 [facility] 10/25 17:01 Order name: Labs collected and sent; Complete Time: 17:18 [facility] 10/25 17:01 Order name: O2 Per Protocol; Complete Time: 17:14 [facility] 10/25 17:01 Order name: O2 Sat Monitoring; Complete Time: 17:14 [facility] 10/25 17:06 Order name: Accucheck; Complete Time: 17:15 [facility] 10/25 17:06 Order name: IV Saline Lock - Large Bore; Complete Time: 17:14 [facility] 10/25 17:06 Order name: Vital Signs; Complete Time: 17:14 [facility] Administered Medications: 17:54 Drug: NS 0.9% IV 500 ml Route: IV; Rate: bolus; Site: right upper arm; kc6 20:42 Follow up: Response: No adverse reaction; IV Status: Completed infusion; IV Intake: ll3 500ml 20:41 Drug: Tetanus-Diphtheria Toxoid IM Adult 0.5 ml {Photographer Motion Picture: [employer]. Exp: ll3 11/02/2023. Lot #: [id number]. } Route: IM; Site: right deltoid; 20:42 Drug: vancoMYCIN IVPB 1 grams Route: IVPB; Infused Over: 2 hrs; Site: right upper arm; ll3 Disposition Summary: 10/25/22 19:47 Hospitalization Ordered Hospitalization Status: Observation [facility] Provider: Lety Mtz Location: Telemetry/MedSurg (observation) [facility] Condition: Stable [facility] Problem: new [facility] Symptoms: are unchanged [facility] Bed/Room Type: Standard [facility] Room Assignment: 220(10/25/22 20:24) wm Diagnosis - Chest pain, unspecified jmm - Cellulitis of the left hand [facility] Forms: - Medication Reconciliation Form jmm - SBAR form jmm Signatures: Dispatcher [employer] EDFigueroa Simeon PA PA jmm Deanna Russell RN RN ll1 Danielle Braga Macarena Fitzpatrick RN RN ll3 Flory Hinojosa RN RN kc6 Lety tMz PA-C PA-C sb4 Corrections: (The following items were deleted from the chart) 20:24 19:47 [facility] wm
--- NOTE | 2022-10-25 19:47 | ER ---
Nurse's Notes [facility] Name: Marek Paul III Age: 77 yrs Sex: Male : 1945 Arrival Date: 10/25/2022 Time: 16:25 Bed 2 Private MD: Diagnosis: Chest pain, unspecified;Cellulitis of the left hand Presentation: 10/25 16:55 Chief complaint: Patient states: L hand pain, swelling, and redness since Thursday. ll1 Had needle poke it on Thursday while cleaning out a old house. CP also. Coronavirus screen: Client denies travel out of the [place] in the last 14 days. At this time, the client does not indicate any symptoms associated with coronavirus-19. Ebola Screen: Patient denies travel to an Ebola-affected area in the 21 days before illness onset. Initial Sepsis Screen: Does the patient meet any 2 criteria? No. Patient's initial sepsis screen is negative. Does the patient have a suspected source of infection? No. Patient's initial sepsis screen is negative. Risk Assessment: Do you want to hurt yourself or someone else? Patient reports no desire to harm self or others. Onset of symptoms was October 21, 2022. 16:55 Method Of Arrival: Ambulatory ll1 16:55 Acuity: SAPNA 3 ll1 Historical: - Allergies: 16:55 PENICILLINS; ll1 - PMHx: 16:55 diabetes mellitus; Pancreatitis; ll1 - Immunization history:: Adult Immunizations up to date. - Social history:: Smoking status: unknown. Screenin:15 [facility] ED Fall Risk Assessment (Adult) History of falling in the last 3 months, ld1 including since admission No falls in past 3 months (0 pts). Abuse screen: Denies threats or abuse. Denies injuries from another. Nutritional screening: No deficits noted. Tuberculosis screening: No symptoms or risk factors identified. Assessment: 17:15 General: Appears in no apparent distress. comfortable, Behavior is calm, cooperative, ld1 appropriate for age. Pain: Complains of pain in chest Pain does not radiate. Pain currently is 6 out of 10 on a pain scale. Quality of pain is described as throbbing, Pain began 2-3 days ago. Neuro: Level of Consciousness is awake, alert, obeys commands, Oriented to person, place, time, situation. Cardiovascular: Capillary refill < 3 seconds Patient's skin is warm and dry. Rhythm is sinus rhythm. Respiratory: Airway is patent Respiratory effort is even, unlabored. GI: Abdomen is round non-distended. : No signs and/or symptoms were reported regarding the genitourinary system. EENT: No signs and/or symptoms were reported regarding the EENT system. Derm: No signs and/or symptoms reported regarding the dermatologic system. Musculoskeletal: No signs and/or symptoms reported regarding the musculoskeletal system. 19:00 Reassessment: No changes from previously documented assessment. Patient and/or family vc1 updated on plan of care and expected duration. Pain level reassessed. 20:00 Reassessment: No changes from previously documented assessment. Patient and/or family vc1 updated on plan of care and expected duration. Pain level reassessed. 20:47 Reassessment: No changes from previously documented assessment. Patient and/or family vc1 updated on plan of care and expected duration. Pain level reassessed. Vital Signs: 16:55 BP 152 / 103; Pulse 95; Resp 16; Temp 98; Pulse Ox 98% ; ll1 17:15 BP 145 / 85; Pulse 93; Resp 21; Pulse Ox 97% on R/A; Pain 6/10; ld1 18:02 BP 102 / 82; Pulse 78; Resp 22; Pulse Ox 98% on R/A; ld1 18:40 BP 149 / 88; Pulse 87; Resp 21; Pulse Ox 100% on R/A; ld1 19:00 BP 143 / 88; Pulse 82; Resp 23; Pulse Ox 99% ; vc1 20:00 BP 165 / 91; Pulse 84; Resp 21; Pulse Ox 95% on R/A; vc1 17:15 Pain Scale: Adult ld1 ED Course: 16:32 Patient arrived in ED. mr 16:33 Arm band placed on Patient placed in an exam room, on a stretcher. ll1 16:34 Figueroa Denson PA is PHCP. [facility] 16:34 Andrez Kidd MD is Attending Physician. jmm 16:53 Mercedes Roa, FARRUKH is Primary Nurse. ld1 16:56 Triage completed. ll1 17:15 Patient has correct armband on for positive identification. Placed in gown. Bed in low ld1 position. Call light in reach. Side rails up X2. cardiac monitor on. Pulse ox on. NIBP on. Door closed. Noise minimized. Warm blanket given. 17:15 No provider procedures requiring assistance completed. Patient maintains SpO2 ld1 saturation greater than 95% on room air. 17:18 Inserted saline lock: 20 gauge in right forearm, using aseptic technique. Blood kc6 collected. 17:36 XRAY Chest (1 view) In Process Unspecified. EDMS 17:36 Hand Left 3 View XRAY In Process Unspecified. EDMS 19:47 Lety Mtz PA-C is Hospitalizing Provider. [place] 20:42 role handed off by Flory Hinojosa RN 20:43 Primary Nurse role handed off by Mercedes Roa RN 20:46 Brenda Allen RN is Primary Nurse. vc1 21:54 Patient admitted, IV remains in place. vc1 Administered Medications: 17:54 Drug: NS 0.9% IV 500 ml Route: IV; Rate: bolus; Site: right upper arm; kc6 20:42 Follow up: Response: No adverse reaction; IV Status: Completed infusion; IV Intake: ll3 500ml 20:41 Drug: Tetanus-Diphtheria Toxoid IM Adult 0.5 ml {Certified Maintenance Welder: [employer]. Exp: ll3 11/02/2023. Lot #: [id number]. } Route: IM; Site: right deltoid; 20:42 Drug: vancoMYCIN IVPB 1 grams Route: IVPB; Infused Over: 2 hrs; Site: right upper arm; ll3 Medication: 17:15 VIS not applicable for this client. ld1 Intake: 20:42 IV: 500ml; Total: 500ml. ll3 Outcome: 19:47 Decision to Hospitalize by Provider. [facility] 21:53 Admitted to Med/surg accompanied by nurse, via wheelchair, room 220, with chart. vc1 21:53 Condition: good 21:53 Instructed on the need for admit. 21:54 Patient left the ED. vc1 Signatures: Dispatcher [employer] EDMS Figueroa Denson PA PA jmm RiveraSue Deanna Russell RN RN ll1 Mercedes Roa RN RN 1 Danielle Braga Macarena Fitzpatrick RN RN 3 Brenda Allen RN RN vc1 Flory Hinojosa, RN RN kc6
[2022-10-25] MEDS ORDERED: TETANUS & DIPHTHERIA TOX,ADULT 0.5 ML VIAL ONE (20:22)
[2022-10-25] MEDS ORDERED: VANCOMYCIN 1 GM/VIAL ONE (20:22)
[2022-10-25] MEDS ORDERED: NA CHLORIDE 0.9% 250 ML ONE (20:22)
--- NOTE | 2022-10-25 20:23 | P.HP ---
Certification for Inpatient Patient admitted to: Observation With expected LOS: <2 Midnights Patient will require the following post-hospital care: None Practitioner: I am a practitioner with admitting privileges, knowledge of patient current condition, hospital course, and medical plan of care. Services: Services provided to patient in accordance with Admission requirements found in Title 42 Section 412.3 of the Code of Federal Regulations Patient History Date of Service: 10/25/22 Reason for admission: Chest Pain, Cellulitus History of Present Illness: Mr. Paul is a 77 year old male with past medical history of insulin dependent type 2 diabetes and hypertension who presented to the emergency department with complaints of right hand swelling and chest pain. He states that 4 days ago, he was cleaning out a box when he poked it on something and caused an open wound. The following day, the hernández of his car closed down on it as well. Xray negative for acute fracture. It did show a remote fifth metacarpal fracture that he said he sustained several years ago. In the ED, he was borderline tachycardic and tachypneic and lactate elevated at 2.3. His cardiac workup was unremarkable- troponin, EKG, chest xray. He was given aspirin, IV fluids, vancomyin and tetanus shot. ED provider wishes to admit patient for further management. Allergies Penicillins Allergy (Mild, Verified 05/25/21 21:53) Hives/Rash Home medications list reviewed: Yes Home Medications: Insulin Detemir [Levemir] 30 units SQ Q12H 05/25/21 Metformin ER [Glucophage ER*] 2 tab PO Q12H 05/25/21 Lisinopril [Zestril] 2.5 mg PO DAILY #30 tablet 05/27/21 Ascorbic Acid [Vitamin C*] 500 mg PO BID #60 tab 07/02/22 Aspirin [Aspirin EC] 81 mg PO DAILY #30 tab 07/02/22 Zinc Sulfate [Zinc Sulfate*] 220 mg PO DAILY #30 cap 07/02/22 - Past Medical/Surgical History Diabetic: Yes -: Type 2 Diabetes, Insulin Dependent -: Hypertension -: Pancreatitis -: Shrapnel injury Psychosocial/ Personal History: Patient is a . He has been 7 times. - Social History Smoking Status: Never smoker Alcohol use: No CD- Drugs: No Caffeine use: Yes Place of Residence: Home Review of Systems Cardiovascular: Chest Pain Musculoskeletal: Hand Pain Physical Examination - Vital Signs Temperature: 98 F Blood Pressure: 149/88 Pulse: 87 Respirations: 21 Pulse Ox (%): 100 - Physical Exam General: Alert, In no apparent distress HEENT: Atraumatic, EOMI, Sclerae nonicteric Neck: Supple, 2+ carotid pulse no bruit Respiratory: Clear to auscultation bilaterally, Normal air movement Cardiovascular: Regular rate/rhythm, Normal S1 S2 Gastrointestinal: Normal bowel sounds, No tenderness Musculoskeletal: Erythema (cellulitus of dorsum of right hand, no abscess/drainage), Tenderness, Warmth Integumentary: No rashes Neurological: Normal speech, Normal affect - Studies Laboratory Data (last 24 hrs) 10/25/22 17:11: APTT 33.1 10/25/22 17:11: PT 10.6, INR 0.96 10/25/22 17:11: WBC 7.70, Hgb 14.3, Hct 43.2, Plt Count 182 10/25/22 17:11: Sodium 138, Potassium 4.0, BUN 19 H, Creatinine 0.97, Glucose 315 H, Magnesium 1.5 L, Total Bilirubin 0.4, AST 30, ALT 52, Alkaline Phosphatase 91 Assessment and Plan - Problems (Diagnosis) (1) Cellulitis of hand Current Visit: Yes Status: Acute (2) Chest pain Current Visit: Yes Status: Acute Qualifiers: Chest pain type: unspecified Qualified Code(s): R07.9 - Chest pain, unspecified (3) Hypertension Current Visit: Yes Status: Chronic Qualifiers: Hypertension type: primary hypertension Qualified Code(s): I10 - Essential (primary) hypertension (4) Type 2 diabetes mellitus Current Visit: Yes Status: Chronic Qualifiers: Diabetes mellitus longterm insulin use: without longterm use Diabetes mellitus complication status: with hyperglycemia Qualified Code(s): E11.65 - Type 2 diabetes mellitus with hyperglycemia - Plan Patient is admitted for further management of severe sepsis secondary to right hand cellulitus and chest pain. Continue vancomycin and cefepime. Blood cultures obtained. Lactate down- trending. Blood cultures obtained. In regards to the chest pain, he reports it is minimal. Will trend troponin and monitor on telemetry. Aspirin and atorvastatin daily. [facility] accu checks with mild sliding scale and diabetic diet. Check lipid panel, A1c, TSH. Monitor and replete electrolytes per protocol. Reconcile and continue home medications. Lovenox for VTE prophylaxis. Full code. Discharge Plan: Home Plan to discharge in: 24 Hours - Advance Directives Does patient have a Living Will: No Does patient have a Durable POA for Healthcare: No - Code Status/Comfort Care Code Status Assessed: Yes Code Status: Full Code Physician Review: Patient Assessed, Agree with Above Assessment and Plan Critical Care: No Time Spent Managing Pts Care (In Minutes): 50
[2022-10-25] MEDS: ATORVASTATIN 40 MG TAB PO SCH (22:17)
[2022-10-25] MEDS ORDERED: ONDANSETRON 4 MG/2 ML VIAL IV PRN (22:17)
[2022-10-25] MEDS: INSULIN -REGULAR HUMAN 50 UNIT/0.5 ML ML SQ SCH (22:17)
[2022-10-25] MEDS ORDERED: VANCOMYCIN 1 GM in NA CHLORIDE 0.9% 250 ML IVPB SCH (22:17)
[2022-10-25 22:38] VITALS: BMI 27.3
[2022-10-25] MEDS ORDERED: VANCOMYCIN 500 MG in NA CHLORIDE 0.9% 100 ML IVPB ONE (22:45)
[2022-10-25] MEDS: NA CHLORIDE 0.9% 1,000 ML IV SCH (22:56)
[2022-10-25] MEDS: CEFEPIME 1 GM in NA CHLORIDE 0.9% 100 ML IV SCH (22:57)
[2022-10-26 03:12] LABS: Absolute Lymphocytes (CBC) 1.9 K/uL (0.7-4.9); Hematocrit 39.8 % (39.6-49.0); Lymphocytes % 22.8 % (15.3-44.8); MPV 9.7 fL (7.6-11.3); RBC Red Blood Cell Count 4.47 M/uL (4.33-5.43)
[2022-10-26 03:57] LABS: Magnesium 1.5 mg/dL (1.6-2.4); Phosphorus 1.6 mg/dL (2.5-4.9); Potassium 4.1 mEq/L (3.5-5.1); Thyroid Stimulating Hormone 3.5 uIU/mL (0.358-3.740); Troponin High Sensitivity 11.3 pg/mL (<58.9)
[2022-10-26] MEDS: INSULIN -REGULAR HUMAN 50 UNIT/0.5 ML ML SQ SCH ×4 (08:17→20:17)
[2022-10-26] MEDS: NA CHLORIDE 0.9% 1,000 ML IV SCH ×3 (08:17→23:50)
[2022-10-26] MEDS: ENOXAPARIN 40 MG/0.4 ML SQ SCH (08:17)
[2022-10-26] MEDS: ASPIRIN EC 81 MG TAB PO SCH (08:18)
[2022-10-26] MEDS: CEFEPIME 1 GM in NA CHLORIDE 0.9% 100 ML IV SCH ×2 (08:18→20:16)
[2022-10-26] MEDS ORDERED: MAGNESIUM SULFATE 1 gm IVPB 1 GM/100 ML BAG IV ONE (10:10)
[2022-10-26] MEDS: POTASS/SODIUM PHOSPHATE 1 PKT POWD.PACK PO SCH ×3 (10:22→12:40)
--- NOTE | 2022-10-26 11:59 | P.PN ---
Subjective Date of Service: 10/26/22 Chief Complaint: Chest Pain, Cellulitus Patient states his right hand swelling has improved but baller tender and redness has not changed. He feels he was pricked by a pain or a pointed object. He denies any chest pain. Physical Examination - Vital Signs Temperature: 97 F Blood Pressure: 169/84 Pulse: 71 Respirations: 18 Pulse Ox (%): 96 - Studies Laboratory Data (last 24 hrs) 10/25/22 17:11: APTT 33.1 10/25/22 17:11: PT 10.6, INR 0.96 10/25/22 17:11: WBC 7.70, Hgb 14.3, Hct 43.2, Plt Count 182 10/25/22 17:11: Sodium 138, Potassium 4.0, BUN 19 H, Creatinine 0.97, Glucose 315 H, Magnesium 1.5 L, Total Bilirubin 0.4, AST 30, ALT 52, Alkaline Phosphatase 91 Assessment And Plan - Current Problems (Diagnosis) (1) Tendinitis of left hand Current Visit: Yes Status: Acute (2) Cellulitis of hand Current Visit: Yes Status: Acute (3) Chest pain Current Visit: Yes Status: Acute Qualifiers: Chest pain type: unspecified Qualified Code(s): R07.9 - Chest pain, unspecified (4) Hypertension Current Visit: Yes Status: Chronic Qualifiers: Hypertension type: primary hypertension Qualified Code(s): I10 - Essential (primary) hypertension (5) Type 2 diabetes mellitus Current Visit: Yes Status: Chronic Qualifiers: Diabetes mellitus usp insulin use: without bed bug exterminator use Diabetes mellitus complication status: with hyperglycemia Qualified Code(s): E11.65 - Type 2 diabetes mellitus with hyperglycemia - Plan Physical Exam General: Alert, In no apparent distress HEENT: Atraumatic, EOMI, Sclerae nonicteric Neck: Supple, 2+ carotid pulse no bruit Respiratory: Clear to auscultation bilaterally, Normal air movement Cardiovascular: Regular rate/rhythm, Normal S1 S2 Gastrointestinal: Normal bowel sounds, No tenderness Musculoskeletal: Erythema of dorsum of right hand, right hand is significantly swollen and tenderness. Neurological: Normal speech, Normal affect. Plan: Patient reported improvement in his hand swelling. He has been afebrile. Continue antibiotics. Monitor for compartment syndrome. Hand surgery consult if no significant improvement. Troponin trended negative. Patient relates his chest pain to musculoskeletal pain from exercises and push- ups. ACS ruled. Blood glucose management with insulin sliding scale and home dose of Lantus insulin. Hold ASA in anticipation for surgery.
[2022-10-26] MEDS ORDERED: HOME MED 1 EA UNK (Insulin Detemir [Levemir] 100 UNIT/1 ML Ml) SQ SCH (12:15)
[2022-10-26] MEDS: HYDRALAZINE HCL 20 MG/ML VIAL IV PRN ×2 (12:41→23:51)
[2022-10-26] MEDS: INSULIN GLARGINE 100 UNIT/ML SQ SCH ×2 (12:41→23:50)
--- NOTE | 2022-10-26 14:18 | EKG ---
Test Date: 2022-10-25 Test Time: 17:03:42 Sales And Marketing Director: Marlen SI MEASUREMENT RESULTS: Intervals: Rate: 92 MI: 170 QRSD: 72 QT: 352 QTc: 435 [place]: P: 59 MI: 170 QRS: 55 T: 5 INTERPRETIVE STATEMENTS: Normal sinus rhythm Cannot rule out Anterior infarct, age undetermined Abnormal ECG Compared to ECG 03/01/2022 08:14:10 Myocardial infarct finding now present Electronically Signed On 10-26-22 14:16:56 CDT by Tobi Kemp
--- NOTE | 2022-10-26 14:47 | CON ---
Date of Consultation: 10/26/2022 Reason For Consultation: Chest pain. History Of Present Illness: A 77-year-old male with history of diabetes, no known history of any car diac disease. Has hypertension, presented after swelling happened to his left hand while working. Monik caldwell probably stuck himself with some instruments and he did not pay attention and then came in with sig nificant swelling and pain. The review of systems that was done showed that he has been having chest pain, but he told me that he had trauma to his chest, so he always carries some chest discomfort. T sheryl, there is no active chest pain at this moment and the pain is with the chest wall movements. Past Medical History: As outlined above in HPI. Medications: Refer to reconciliation sheet for detailed list. Allergies: PENICILLIN. Family History: No premature coronary artery disease or cancer. Social History: He does not smoke or drink. Does not use any drugs. Review of Systems: All systems reviewed and they were negative except what mentioned in HPI. Physical Examination: Vital Signs: Reviewed. Head and Neck: Pupils are equal, reactive to light. Intact eye movements. No JVD. No cervical lym phadenopathy. Neck is supple. Thyroid is not enlarged. Lungs: Clear to auscultation bilaterally. No rhonchi, wheezing, or crackles. No accessory muscle u se. Heart: Regular rate and rhythm. No extra sounds. Abdomen: Soft, nontender. Bowel sounds positive. No organomegaly. No masses or hernia. No rigidi ty or rebound. Extremities: No edema, clubbing, or cyanosis. Intact pulses. Skin: No rash. Neurologic: Alert, awake, oriented x3. No acute focal deficits appreciated. Investigations: Labs were reviewed. Troponins x3 are negative. Assessment And Recommendations: 1.Chest pain. It is atypical. Cardiac enzymes are negative. Recommend exercise stress test as an outpatient and obtain an echo. 2.Hand cellulitis, on antibiotics. 3.Hypertension. Blood pressure is elevated. Needs adjustment of his home medications to get systol ic below 140 and titrate beta-dulce as needed. SR/MODL Voice ID: [id number] Report ID: [id number]
[2022-10-26] MEDS: VANCOMYCIN 1.5 GM in NA CHLORIDE 0.9% 500 ML IVPB SCH (16:19)
[2022-10-26] MEDS: ACETAMINOPHEN 500 MG TAB PO PRN (19:15)
[2022-10-26] MEDS: ATORVASTATIN 40 MG TAB PO SCH (20:17)
[2022-10-26] MEDS: ASCORBIC ACID 500 MG TABLET PO SCH (20:17)
[2022-10-27 04:09] LABS: Magnesium 1.8 mg/dL (1.6-2.4); Phosphorus 1.7 mg/dL (2.5-4.9); Potassium 3.8 mEq/L (3.5-5.1)
[2022-10-27] MEDS: ACETAMINOPHEN 500 MG TAB PO PRN (04:11)
[2022-10-27] MEDS: NA CHLORIDE 0.9% 1,000 ML IV SCH ×4 (04:17→20:19)
[2022-10-27] MEDS ORDERED: MAGNESIUM SULFATE 1 gm IVPB 1 GM/100 ML BAG IV ONE (06:00)
[2022-10-27] MEDS ORDERED: POTASSIUM CL SA 10 MEQ TAB PO ONE (06:13)
[2022-10-27] MEDS: POTASS/SODIUM PHOSPHATE 1 PKT POWD.PACK PO SCH ×3 (06:32→08:49)
[2022-10-27] MEDS: ENOXAPARIN 40 MG/0.4 ML SQ SCH (07:39)
[2022-10-27] MEDS: CEFEPIME 1 GM in NA CHLORIDE 0.9% 100 ML IV SCH ×2 (07:39→20:11)
[2022-10-27] MEDS: ASCORBIC ACID 500 MG TABLET PO SCH ×2 (07:40→20:12)
[2022-10-27] MEDS: ZINC SULFATE 220 MG CAP PO SCH (07:40)
[2022-10-27] MEDS: ASPIRIN EC 81 MG TAB PO SCH (07:40)
[2022-10-27] MEDS: INSULIN -REGULAR HUMAN 50 UNIT/0.5 ML ML SQ SCH ×4 (08:48→20:13)
[2022-10-27] MEDS: VANCOMYCIN 1.5 GM in NA CHLORIDE 0.9% 500 ML IVPB SCH (10:08)
[2022-10-27] MEDS: INSULIN GLARGINE 100 UNIT/ML SQ SCH (11:54)
--- NOTE | 2022-10-27 13:51 | P.PN ---
Subjective Date of Service: 10/27/22 Chief Complaint: Chest Pain, Cellulitus Patient states his right hand swelling is getting better. He reports a new area of erythematous induration on the dorsum of the hand. He denies any chest pain. Physical Examination - Vital Signs Temperature: 97.6 F Blood Pressure: 151/80 Pulse: 86 Respirations: 16 Pulse Ox (%): 98 - Studies Laboratory Data (last 24 hrs) 10/27/22 03:10: Sodium 138, Potassium 3.8, BUN 13, Creatinine 0.81, Glucose 266 H, Phosphorus 1.7 L, Magnesium 1.8 Assessment And Plan - Current Problems (Diagnosis) (1) Tendinitis of left hand Current Visit: Yes Status: Acute (2) Cellulitis of hand Current Visit: Yes Status: Acute (3) Chest pain Current Visit: Yes Status: Acute Qualifiers: Chest pain type: unspecified Qualified Code(s): R07.9 - Chest pain, unspecified (4) Hypertension Current Visit: Yes Status: Chronic Qualifiers: Hypertension type: primary hypertension Qualified Code(s): I10 - Essential (primary) hypertension (5) Type 2 diabetes mellitus Current Visit: Yes Status: Chronic Qualifiers: Diabetes mellitus mcc insulin use: without ocean transportation intermediary use Diabetes mellitus complication status: with hyperglycemia Qualified Code(s): E11.65 - Type 2 diabetes mellitus with hyperglycemia - Plan Physical Exam General: Alert, In no apparent distress HEENT: Atraumatic, EOMI, Sclerae nonicteric Neck: Supple, 2+ carotid pulse no bruit Respiratory: Clear to auscultation bilaterally, Normal air movement Cardiovascular: Regular rate/rhythm, Normal S1 S2 Gastrointestinal: Normal bowel sounds, No tenderness Musculoskeletal: Erythema of dorsum of right hand, right hand remain swollen with tenderness to palpation. Neurological: Normal speech, Normal affect. Plan: Continue antibiotics. Monitor for compartment syndrome. Hand surgery consulted. Dr. Tubbs is planning surgery tomorrow Troponin trended negative. Patient relates his chest pain to musculoskeletal pain from exercises and push- ups. ACS ruled. Blood glucose management with insulin sliding scale and home dose of Lantus insulin. Hold ASA in anticipation for surgery.
[2022-10-27] MEDS: ATORVASTATIN 40 MG TAB PO SCH (20:12)
[2022-10-28] MEDS: INSULIN GLARGINE 100 UNIT/ML SQ SCH ×2 (00:37→12:06)
[2022-10-28 03:24] LABS: Phosphorus 2.2 mg/dL (2.5-4.9); Potassium 3.7 mEq/L (3.5-5.1)
[2022-10-28] MEDS: VANCOMYCIN 1.5 GM in NA CHLORIDE 0.9% 500 ML IVPB SCH (04:26)
--- NOTE | 2022-10-28 06:55 | P.PN ---
Date of Service: 10/28/22 Subjective: feels better after surgery no new/worsening symptoms no acute events overnight ROS: 10 point ROS as noted above, otherwise negative Physical Exam: GEN: Alert, oriented, NAD HEENT: Normal conjunctiva, sclera anicteric CV: Regular rate and rhythm, no edema Pulm: Nonlabored respirations on room air MSK: L hand with surgical dressing intact, slightly blood-tinged on dorsum Neuro: Normal speech, normal affect vitals reviewed Problem List: Cellulitis, Tendinitis of left hand with abscess Chest pain Hypertension NIDDM2 with hyperglycemia Continue empiric antibiotics, IV cefepime and vancomycin Monitor for compartment syndrome. Hand surgery consulted. s/p Debridement of subcutaneous tissue, I&D of abscess (10/28) Troponin trended negative. Patient relates his chest pain to musculoskeletal pain from exercises and push-ups. no further inpatient eval needed Blood glucose management with insulin sliding scale and home dose of Lantus insulin. Held ASA in anticipation for surgery. VTE: Lovenox Code: Full Dispo: Home ~2 days pending further surgery / possible closure
--- NOTE | 2022-10-28 06:57 | ECHO ---
HEIGHT: 5 ft 7 in WEIGHT: 175 lb 0 oz DATE OF STUDY: 10/27/[address]: Lety Mtz 2-DIMENSIONAL: YES M.MODE: YES DOPPLER: YES COLOR FLOW: YES TDS: PORTABLE: YES DEFINITY: BUBBLE STUDY: DIAGNOSIS: CHEST PAIN CARDIAC HISTORY: CATHERIZATION: NO SURGERY: NO PROSTHETIC VALVE: NO PACEMAKER: NO MEASUREMENTS (cm) DIASTOLIC (NORMALS) SYSTOLIC (NORMALS) IVSd 1.1 (0.6-1.2) LA Diam 2.6 (1.9-4.0) LVEF 68% LVIDd 3.1 (3.5-5.7) LVIDs 1.9 (2.0-3.5) %FS 37% LVPWd 1.2 (0.6-1.2) Ao Diam 2.5 (2.0-3.7) 2 DIMENSIONAL ASSESSMENT: RIGHT ATRIUM: NORMAL LEFT ATRIUM: NORMAL RIGHT VENTRICLE: NORMAL LEFT VENTRICLE: NORMAL TRICUSPID VALVE: NORMAL MITRAL VALVE: NORMAL PULMONIC VALVE: NORMAL AORTIC VALVE: NORMAL PERICARDIAL EFFUSION: NONE AORTIC ROOT: NORMAL LEFT VENTRICULAR WALL MOTION: NORMAL DOPPLER/COLOR FLOW: NORMAL COMMENTS: 1. NORMAL 2-DIMENSIONAL ECHOCARDIOGRAM WITH DOPPLER 2. NO WALL MOTION ABNORMALITY 3. NO EFFUSION TECHNOLOGIST: NESS PORTILLO
[2022-10-28] MEDS: INSULIN -REGULAR HUMAN 50 UNIT/0.5 ML ML SQ SCH ×4 (07:30→21:10)
[2022-10-28] MEDS: CEFEPIME 1 GM in NA CHLORIDE 0.9% 100 ML IV SCH ×2 (08:19→21:08)
[2022-10-28] MEDS: ASPIRIN EC 81 MG TAB PO SCH (08:23)
[2022-10-28] MEDS: ENOXAPARIN 40 MG/0.4 ML SQ SCH (08:24)
[2022-10-28] MEDS: ASCORBIC ACID 500 MG TABLET PO SCH ×2 (08:24→21:11)
[2022-10-28] MEDS: ZINC SULFATE 220 MG CAP PO SCH (08:24)
[2022-10-28] MEDS ORDERED: FENTANYL CITR 100 MCG/2 ML ONE (08:49)
[2022-10-28] MEDS ORDERED: LIDOCAINE 2% MPF 5 ML VIAL ONE (08:52)
[2022-10-28] MEDS ORDERED: ONDANSETRON 4 MG/2 ML VIAL ONE (08:52)
[2022-10-28] MEDS ORDERED: propofoL 200 MG/20 ML VIAL IV ONE (08:52)
[2022-10-28] MEDS ORDERED: dexAMETHasone 10 MG/ML VIAL ONE (08:52)
[2022-10-28] MEDS ORDERED: MIDAZOLAM HCL 2 MG/2 ML INJ ONE (08:54)
[2022-10-28] MEDS ORDERED: SILVER SULFADIAZINE 1% 25 GM TOP ONE (09:44)
[2022-10-28] MEDS ORDERED: POTASSIUM PHOS IN 0.9 % NACL 15 MMOL/250 ML BAG IV ONE (10:00)
--- NOTE | 2022-10-28 10:20 | OP ---
Surgeon: Iftikhar Tubbs MD Preoperative Diagnosis: Abscess of the left hand. Postoperative Diagnosis: Abscess of the left hand. Procedure Performed: Debridement of subcutaneous tissue, I and D of abscess. Anesthesia: General. Procedure In Detail: After satisfactory induction of general anesthesia, the hand was prepped with B etadine scrub and Betadine paint. Dry sterile drapes were applied in the usual manner. The arm was elevated. Tourniquet was inflated to 250 mmHg. Hand was placed on the roll lock table. A curviline ar incision was made over the dorsum of the left hand extending from the index toward the little fing er metacarpal from the radial to proximal ulnar, dissected down to the skin and subcutaneous tissue. The veins were coagulated as needed. Nerves were identified and preserved. There was an abscess ca vity approximately 1 x 2 cm located in the space over the fourth and fifth metacarpal base region. I t was cultured and the wall of the cavity was excised now. Subcutaneous tissue was necrotic appearin g. The wound was jet lavaged, irrigated with 3 L of dilute Betadine solution after cultures were chacorta en and then the wound was packed with Silvadene cream and quarter-inch Nu Gauze, Kerlix dressing. Th e patient tolerated the procedure well and returned to the recovery. CHAD/JAYY Voice ID: [id number] Report ID: [id number]
[2022-10-28] MEDS: HYDROMORPHONE HCL 1 MG/ML INJ ONE ×2 (10:23→10:33)
--- NOTE | 2022-10-28 10:35 | CON ---
History Of Present Illness: 77-year-old white male, left-hand dominant, who punched his left dorsal hand with a needle 1 week ago, developed swelling of the hand, some was drained, but now it is mayra barillas, consulted for abscess of this dorsal hand. He has history of diabetes. No surgery. Does not smoke. Does not drink. Allergic to penicillin. He is on insulin and metformin. Physical Examination: Vital Signs: He is 5 feet 7 inches, 175 pounds. Extremities: Hand has swelling over the fourth metacarpal dorsally and tenderness on palpation. The entry site of the puncture wound looks healed. Assessment: Infection of the hand. Plan: I and D. CHAD/JAYY Voice ID: [id number] Report ID: [id number]
[2022-10-28] MEDS: NA CHLORIDE 0.9% 1,000 ML IV SCH (11:17)
[2022-10-28] MEDS: HYDRALAZINE HCL 20 MG/ML VIAL IV PRN (12:07)
[2022-10-28] MEDS: CODEINE 30MG/APAP 300MG TAB PO PRN ×2 (14:12→22:48)
[2022-10-28] MEDS ORDERED: GLUCAGON 1 MG/VIAL IM PRN (20:56)
[2022-10-28] MEDS ORDERED: INSULIN -REGULAR HUMAN 50 UNIT/0.5 ML ML IV ONE (20:56)
[2022-10-28] MEDS ORDERED: D50W 25 GM/50 ML SYRINGE IV PRN (20:56)
[2022-10-28] MEDS: SILVER SULFADIAZINE 1% 25 GM TOP SCH (21:00)
[2022-10-28] MEDS: ATORVASTATIN 40 MG TAB PO SCH (21:11)
[2022-10-28] MEDS ORDERED: DEXTROSE 10%-WATER 500 ML IV SCH (21:15)
[2022-10-28] MEDS: VANCOMYCIN 1.75 GM in NA CHLORIDE 0.9% 500 ML IVPB SCH (22:48)
[2022-10-29] MEDS: INSULIN GLARGINE 100 UNIT/ML SQ SCH ×2 (00:29→14:00)
[2022-10-29] MEDS: CODEINE 30MG/APAP 300MG TAB PO PRN ×4 (03:09→18:31)
--- NOTE | 2022-10-29 07:05 | P.PN ---
Date of Service: 10/29/22 Subjective: doing better today hand still hurts but improving; swelling improved otherwise no new / worsening problems upset this morning due to being NPO and no surgery today ROS: 10 point ROS as noted above, otherwise negative Physical Exam: GEN: Alert, oriented, NAD HEENT: Normal conjunctiva, sclera anicteric CV: Regular rate and rhythm, no edema Pulm: Nonlabored respirations on room air MSK: L hand with surgical dressing intact, slightly blood-tinged on dorsum, swelling of fingers improved Neuro: Normal speech, normal affect vitals reviewed Problem List: Cellulitis, Tendinitis of left hand with abscess Chest pain Hypertension NIDDM2 with hyperglycemia Continue empiric antibiotics, IV cefepime and vancomycin Monitor for compartment syndrome. Hand surgery consulted. s/p Debridement of subcutaneous tissue, I&D of abscess (10/28) NPO after midnight for tentative I&D of abscess and possible closure tomorrow Troponin trended negative. Patient relates his chest pain to musculoskeletal pain from exercises and push-ups. no further inpatient eval needed Blood glucose management with insulin sliding scale and home dose of Lantus insulin. Held ASA in anticipation for surgery. VTE: Lovenox Code: Full Dispo: Home ~1-2 days pending further surgery / possible closure anticipate PO antibiotic(s) on discharge
--- NOTE | 2022-10-29 07:21 | EKG ---
Test Date: 2022-10-27 Test Time: 17:35:08 Paint Crew Supervisor: MONSE MEASUREMENT RESULTS: Intervals: Rate: 91 MS: 190 QRSD: 76 QT: 364 QTc: 447 [place]: P: 51 MS: 190 QRS: 12 T: 29 INTERPRETIVE STATEMENTS: Normal sinus rhythm Cannot rule out Anterior infarct, age undetermined Abnormal ECG Compared to ECG 10/25/2022 17:03:42 No significant changes Electronically Signed On 10-29-22 07:15:07 CDT by Tyler Grace
[2022-10-29 08:22] LABS: Phosphorus 2.8 mg/dL (2.5-4.9); Potassium 4.3 mEq/L (3.5-5.1)
--- NOTE | 2022-10-29 08:44 | P.CNS ---
Date of Consult: 10/29/22 Reason for Consult: Left hand abscess Chief Complaint: Chest Pain, Cellulitus History of Present Illness: Patient is a 77 year old male with past medical history of insulin dependent type 2 diabetes and hypertension who presented to the emergency department with complaints of right hand swelling and chest pain. He states that 4 days ago, he was cleaning out a box when he poked it on something and caused an open wound. The following day, the hernández of his car closed down on it as well. Xray negative for acute fracture. It did show a remote fifth metacarpal fracture that he said he sustained several years ago. In the ED, he was borderline tachycardic and tachypneic and lactate elevated at 2.3. His cardiac workup was unremarkable- troponin, EKG, chest xray. He was given aspirin, IV fluids, vancomyin and tetanus shot. ID consulted for left hand abscess. Allergies Penicillins Allergy (Mild, Verified 05/25/21 21:53) Hives/Rash Home medications list reviewed: Yes Home Medications: Insulin Detemir [Levemir] 30 units SQ Q12H 05/25/21 Metformin ER [Glucophage ER*] 2 tab PO Q12H 05/25/21 Ascorbic Acid [Vitamin C*] 500 mg PO BID #60 tab 07/02/22 Aspirin [Aspirin EC] 81 mg PO DAILY #30 tab 07/02/22 Zinc Sulfate [Zinc Sulfate*] 220 mg PO DAILY #30 cap 07/02/22 - Past Medical/Surgical History Diabetic: Yes -: Type 2 Diabetes, Insulin Dependent -: Hypertension -: Pancreatitis -: Shrapnel injury Psychosocial/ Personal History: Patient is a . He has been 7 times. - Social History Smoking Status: Unknown if ever smoked Alcohol use: No CD- Drugs: No Caffeine use: Yes Place of Residence: Home Review of Systems 10-point ROS is otherwise unremarkable Musculoskeletal: Hand Pain (Left hand) Integumentary: As per HPI Physical Examination Temp Pulse Resp BP Pulse Ox 97.4 F 106 H 16 154/82 H 94 10/29/22 08:00 10/29/22 08:00 10/29/22 08:00 10/29/22 08:00 10/29/22 08:00 General: Alert, In no apparent distress, Oriented x3 HEENT: Atraumatic, Normocephalic Neck: Supple, JVD not distended Respiratory: Clear to auscultation bilaterally, Normal air movement Cardiovascular: No edema, Normal pulses Gastrointestinal: Normal bowel sounds, Soft and benign, Non-distended Integumentary: Other (s/p I&D of left hand abscess. Dressing clean dry and intact) Neurological: Normal speech, Normal tone, Normal affect Laboratory Data - reviewed Microbiology Data - reviewed Imagings Data: - reviewed Conclusions/Impression: Problem List Diabetes Mellitus Type II Hypertension Cellulitis of Left Hand with Abscess Abscess, Left Hand - s/p I&D of left hand abscess 10/28. Closure of site likely 10/30. - Currently on Cefepime and Vancomycin (started 10/28) - Wound culture left hand 10/28: pending Blood cultures: No growth to date No leukocytosis. Afebrile Recommendations - Continue Cefepime and Vancomycin for now. Awaiting final culture reports. Will adjust antibiotics as appropriate. - Continue wound care per Dr. Tubbs - Blood glucose management ID will follow up and monitor patient closely. Case discussed with Santo Hernandez. Thank you Dr. Louis for consult.
[2022-10-29] MEDS: INSULIN -REGULAR HUMAN 50 UNIT/0.5 ML ML SQ SCH ×4 (08:45→21:05)
[2022-10-29] MEDS: ASPIRIN EC 81 MG TAB PO SCH (08:46)
[2022-10-29] MEDS: ASCORBIC ACID 500 MG TABLET PO SCH ×2 (08:46→21:04)
[2022-10-29] MEDS: CEFEPIME 1 GM in NA CHLORIDE 0.9% 100 ML IV SCH ×2 (08:46→21:04)
[2022-10-29] MEDS: ZINC SULFATE 220 MG CAP PO SCH (08:46)
[2022-10-29] MEDS: SILVER SULFADIAZINE 1% 25 GM TOP SCH ×2 (08:47→21:00)
[2022-10-29] MEDS: ENOXAPARIN 40 MG/0.4 ML SQ SCH (08:48)
[2022-10-29] MEDS: VANCOMYCIN 1.75 GM in NA CHLORIDE 0.9% 500 ML IVPB SCH (16:52)
[2022-10-29] MEDS: ACETAMINOPHEN 500 MG TAB PO PRN (16:52)
[2022-10-29] MEDS: ATORVASTATIN 40 MG TAB PO SCH (21:04)
[2022-10-30] MEDS: CODEINE 30MG/APAP 300MG TAB PO PRN ×3 (00:57→18:25)
[2022-10-30] MEDS: INSULIN GLARGINE 100 UNIT/ML SQ SCH ×2 (00:57→12:27)
[2022-10-30 03:49] LABS: Hematocrit 39.3 % (39.6-49.0); MCV 88.5 fL (80-100); MPV 9.2 fL (7.6-11.3); RBC Red Blood Cell Count 4.45 M/uL (4.33-5.43)
[2022-10-30 04:00] LABS: Magnesium 1.9 mg/dL (1.6-2.4)
--- NOTE | 2022-10-30 07:01 | P.PN ---
Date of Service: 10/30/22 Subjective: feeling much better today abscess cleaned and closed today pain after procedure no new / worsening problems no diarrhea, afebrile ROS: 10 point ROS as noted above, otherwise negative Physical Exam: GEN: Alert, oriented, NAD HEENT: Normal conjunctiva, sclera anicteric CV: Regular rate and rhythm, no edema Pulm: Nonlabored respirations on room air MSK: L hand with surgical dressing intact, c/d/i Neuro: Normal speech, normal affect vitals reviewed Problem List: Cellulitis, Tendinitis of left hand with abscess Chest pain Hypertension NIDDM2 with hyperglycemia Continue empiric antibiotics, IV cefepime and vancomycin ID consulted wound culture pending from I&D on 10/28 leukocytosis worse today Monitor for compartment syndrome Hand surgery consulted. s/p Debridement of subcutaneous tissue, I&D of abscess (10/28) s/p I&D of abscess and closure 10/30 plan for dc within 24hrs Troponin trended negative. Patient relates his chest pain to musculoskeletal pain from exercises and push-ups. no further inpatient eval needed Blood glucose management with insulin sliding scale and home dose of Lantus insulin. Held ASA in anticipation for surgery. VTE: Lovenox Code: Full Dispo: Home ~1 day anticipate PO antibiotic(s) on discharge pending cultures, leukocytosis improvement, pain control
[2022-10-30] MEDS: INSULIN -REGULAR HUMAN 50 UNIT/0.5 ML ML SQ SCH ×4 (07:30→22:19)
[2022-10-30] MEDS: ASPIRIN EC 81 MG TAB PO SCH (07:48)
[2022-10-30] MEDS: ENOXAPARIN 40 MG/0.4 ML SQ SCH (07:48)
[2022-10-30] MEDS: SILVER SULFADIAZINE 1% 25 GM TOP SCH ×2 (07:49→20:47)
[2022-10-30] MEDS: ASCORBIC ACID 500 MG TABLET PO SCH ×2 (07:49→23:23)
[2022-10-30] MEDS: ZINC SULFATE 220 MG CAP PO SCH (07:49)
[2022-10-30] MEDS: CEFEPIME 1 GM in NA CHLORIDE 0.9% 100 ML IV SCH ×2 (07:57→20:39)
[2022-10-30] MEDS ORDERED: NA CHLORIDE 0.9% 1,000 ML ONE (08:32)
[2022-10-30] MEDS ORDERED: FENTANYL CITR 100 MCG/2 ML ONE (09:05)
[2022-10-30] MEDS ORDERED: MIDAZOLAM HCL 2 MG/2 ML INJ ONE (09:06)
[2022-10-30] MEDS ORDERED: propofoL 200 MG/20 ML VIAL IV ONE (09:06)
[2022-10-30] MEDS ORDERED: ONDANSETRON 4 MG/2 ML VIAL ONE (09:44)
[2022-10-30] MEDS ORDERED: LIDOCAINE 2% MPF 5 ML VIAL ONE (09:44)
--- NOTE | 2022-10-30 10:17 | P.PN ---
Date of Service: 10/30/22 Chief Complaint: Hand cellulitis. chest pain Subjective: Denies any new complaints. s/p debridement and closure of left hand wound today. Tolerated procedure well. No acute events reported overnight. Physical Examination Temp Pulse Resp BP Pulse Ox 97.1 F 64 18 108/67 93 10/30/22 10:08 10/30/22 10:08 10/30/22 10:08 10/30/22 10:08 10/30/22 04:00 General: Alert, In no apparent distress, Oriented x3 HEENT: Atraumatic, Normocephalic Neck: Supple, JVD not distended Respiratory: Clear to auscultation bilaterally, Normal air movement Cardiovascular: No edema, Normal pulses Gastrointestinal: Normal bowel sounds, Soft and benign, Non-distended Integumentary: Other (s/p debridemenet and closure of left hand wound today Dressing clean dry and intact) Neurological: Normal speech, Normal tone, Normal affect Studies Laboratory Data - reviewed Microbiology Data - reviewed Imagings Data: - reviewed Medications List Reviewed: Yes Assessment and Plan Problem List Diabetes Mellitus Type II Hypertension Cellulitis of Left Hand with Abscess * Allergy: Penicillins * Abscess, Left Hand - s/p I&D of left hand abscess 10/28. - Currently on Cefepime and Vancomycin (started 10/28) - Wound culture left hand 10/28: gram stain no results. Culture results pending - Scheduled for debridement and closure of wound today 10/30. WBC 12 today Afebrile Blood cultures: No growth to date Recommendations - Continue Cefepime and Vancomycin for now. - Awaiting final culture reports. Will adjust antibiotics as appropriate. - Consider d/c home on Doxycycline 100mg PO BID x 7 days. He has been on Cefepime since 10/25 and Vancomycin since 10/28. - Continue wound care per Dr. Tubbs - Blood glucose management ID will follow up and monitor patient closely. Case discussed with Krista Hernandez
[2022-10-30] MEDS: VANCOMYCIN 1.75 GM in NA CHLORIDE 0.9% 500 ML IVPB SCH (10:46)
--- NOTE | 2022-10-30 12:31 | OP ---
Surgeon: Iftikhar Tubbs MD Preoperative Diagnosis: Open wound, left hand. Postoperative Diagnosis: Open wound, left hand. Procedure: Debridement of skin and subcutaneous tissue . Anesthesia: General. Description Of Procedure: After satisfactory induction of anesthesia, the left arm was prepped with Betadine scrub and Betadine paint. Dry sterile drapes were applied in the usual manner. The arm was elevated, exsanguinated with an Esmarch. Tourniquet was inflated to 250 mmHg. Hand was placed on r oll lock table. The wound was scrubbed with Betadine scrub and then jet lavaged, irrigated with 3 L of dilute Betadine solution after . Tourniquet was released. Electrocautery was used for hemostasis and then the wound was closed with 4-0 Prolene vertical mattresses and horizontal mattress es, dressed with Xeroform and Kerlix. The patient tolerated the procedure well and returned to [facility]. CHAD/JAYY Voice ID: [id number] Report ID: [id number]
[2022-10-30] MEDS: ATORVASTATIN 40 MG TAB PO SCH (20:39)
[2022-10-30] MEDS: ACETAMINOPHEN 500 MG TAB PO PRN (23:23)
[2022-10-31] MEDS: INSULIN GLARGINE 100 UNIT/ML SQ SCH ×2 (01:25→12:33)
[2022-10-31] MEDS: HYDRALAZINE HCL 20 MG/ML VIAL IV PRN (02:27)
[2022-10-31] MEDS: CODEINE 30MG/APAP 300MG TAB PO PRN ×4 (04:30→16:27)
[2022-10-31] MEDS: VANCOMYCIN 1.75 GM in NA CHLORIDE 0.9% 500 ML IVPB SCH (04:50)
[2022-10-31 06:40] VITALS: O2SAT 96
[2022-10-31] MEDS: INSULIN -REGULAR HUMAN 50 UNIT/0.5 ML ML SQ SCH ×3 (07:30→16:21)
[2022-10-31 07:43] LABS: Absolute Lymphocytes (CBC) 2.5 K/uL (0.7-4.9); Hematocrit 39.1 % (39.6-49.0); Lymphocytes % 26.7 % (15.3-44.8); MCV 88.6 fL (80-100); MPV 8.3 fL (7.6-11.3); RBC Red Blood Cell Count 4.42 M/uL (4.33-5.43)
--- NOTE | 2022-10-31 07:43 | P.DS ---
Admission Date: 10/27/22 Discharge Date: 10/31/22 Disposition: ROUTINE DISCHARGE Discharge Condition: GOOD Reason for Admission: Chest Pain, Cellulitus Consultations: Cardiology - Dr. Grace / Dr. Kemp Infectious Disease - Dr. Monet Hand Surgeon - Dr. Tubbs Brief History of Present Illness: 77 yo M, PMH: insulin dependent type 2 diabetes and hypertension Patient who presented to the emergency department with complaints of right hand swelling and chest pain. He states that 4 days ago, he was cleaning out a box when he poked it on something and caused an open wound. The following day, the hernández of his car closed down on it as well. Xray negative for acute fracture. It did show a remote fifth metacarpal fracture that he said he sustained several years ago. In the ED, he was borderline tachycardic and tachypneic and lactate elevated at 2.3. His cardiac workup was unremarkable- troponin, EKG, chest xray. He was given aspirin, IV fluids, vancomyin and tetanus shot. ED provider wishes to admit patient for further management. Hospital Course: Problem List: Cellulitis, Tendinitis of left hand with abscess Chest pain Hypertension NIDDM2 with hyperglycemia Patient presented with right hand swelling and chest pain. Troponins were negative. Echocardiogram was normal. Cardiology was consulted and found no further inpatient testing was required. Recommended patient to follow up with cardiology in a few weeks for an outpatient stress test. Patient was found to have an abscess of the left hand. Hand surgeon was consult ed. Patient was taken into surgery twice for Debridement of subcutaneous tissue and I and D of abscess. ID was consulted. Patient was treated with IV cefepime and vancomycin. On day of discharge, patient remained afebrile for 48 hours, leukocytosis improved, and no longer in any chest pain. There was nothing found growing from the blood cultures, and wound cultures are pending on discharge. He is to be discharged home on Doxycycline 100mg PO BID x 7 days per ID recommendation. New prescriptions: Doxycycline 100mg PO BID x 7 days Keep Dressing dry, clean and intact PCP within a week Follow up Dr. Tubbs on Thursday11/03/22 at 9AM [place] [facility] Cardiology with a month for outpatient stress test Physical Exam: GEN: Alert, oriented, NAD HEENT: Normal conjunctiva, sclera anicteric CV: Regular rate and rhythm, no edema Pulm: Nonlabored respirations on room air MSK: L hand with surgical dressing intact, c/d/i Neuro: Normal speech, normal affect Vital Signs/Physical Exam: Temp Pulse Resp BP Pulse Ox 97.6 F 87 17 140/79 95 10/31/22 04:00 10/31/22 04:00 10/31/22 04:00 10/31/22 04:00 10/31/22 04:00 Laboratory Data at Discharge: WBC 12.00 thou/uL (4.3-10.9) H 10/30/22 02:23 Hgb 12.9 g/dL (13.6-17.9) L 10/30/22 02:23 Hct 39.3 % (39.6-49.0) L 10/30/22 02:23 Plt Count 199 thou/uL (152-406) 10/30/22 02:23 PT 10.6 SECONDS (9.5-12.5) 10/25/22 17:11 INR 0.96 10/25/22 17:11 APTT 33.1 SECONDS (24.3-36.9) 10/25/22 17:11 Sodium 137 mEq/L (136-145) 10/30/22 02:23 Potassium 4.0 mEq/L (3.5-5.1) 10/30/22 02:23 BUN 22 mg/dL (7-18) H 10/30/22 02:23 Creatinine 0.90 mg/dL (0.70-1.30) 10/30/22 02:23 Glucose 236 mg/dL (74-106) H 10/30/22 02:23 Phosphorus 2.8 mg/dL (2.5-4.9) 10/29/22 07:53 Magnesium 1.9 mg/dL (1.6-2.4) 10/30/22 02:23 Total Bilirubin 0.4 mg/dL (0.2-1.0) 10/25/22 17:11 AST 30 U/L (15-37) 10/25/22 17:11 ALT 52 U/L (16-61) 10/25/22 17:11 Alkaline Phosphatase 91 U/L (45-117) 10/25/22 17:11 Triglycerides 106 mg/dL (<150) 10/26/22 02:22 Cholesterol 132 mg/dL (<200) 10/26/22 02:22 HDL Cholesterol 42 mg/dL (40-60) 10/26/22 02:22 Cholesterol/HDL Ratio 3.14 10/26/22 02:22 Home Medications: Insulin Detemir [Levemir] 30 units SQ Q12H 05/25/21 Metformin ER [Glucophage ER*] 2 tab PO Q12H 05/25/21 Ascorbic Acid [Vitamin C*] 500 mg PO BID #60 tab 07/02/22 Aspirin [Aspirin EC] 81 mg PO DAILY #30 tab 07/02/22 Zinc Sulfate [Zinc Sulfate*] 220 mg PO DAILY #30 cap 07/02/22 Codeine/APAP [Tylenol #3*] 1 tab PO Q8HP PRN #15 tab 10/31/22 Doxycycline Monohydrate 100 mg PO BID 7 Days #14 cap 10/31/22 Silver Sulfadiazine [Silvadene 1% Cream] 1 appl TOP Q12HR tube 10/31/22 New Medications: Doxycycline Monohydrate 100 mg PO BID 7 Days #14 cap Codeine/APAP [Tylenol #3*] 1 tab PO Q8HP PRN #15 tab PRN Reason: Pain Scale 5-7 (Moderate) Physician Discharge Instructions: Patient presented with right hand swelling and chest pain. Troponins were negative. Echocardiogram was normal. Cardiology was consulted and found no further inpatient testing was required. Recommended patient to follow up with cardiology in a few weeks for an outpatient stress test. Patient was found to have an abscess of the left hand. Hand surgeon was consulted. Patient was taken into surgery twice for Debridement of subcutaneous tissue and I and D of abscess. ID was consulted. Patient was treated with IV cefepime and vancomycin. On day of discharge, patient remained afebrile for 48 hours, leukocytosis improved, and no longer in any chest pain. There was nothing found growing from the blood cultures, and wound cultures are pending on discharge. He is to be discharged home on Doxycycline 100mg PO BID x 7 days per ID recommendation. New prescriptions: Doxycycline 100mg PO BID x 7 days Keep Dressing dry, clean and intact PCP within a week Follow up Dr. Tubbs on Thursday11/03/22 at 9AM [place] office Cardiology with a month for outpatient stress test Followup: Iftikhar Tubbs MD [ACTIVE - CAN ADMIT] - 11/03/22 9:00 am ([facility]) Time spent managing pt's care (in minutes): 45
[2022-10-31 07:49] LABS: Potassium 3.4 mEq/L (3.5-5.1)
[2022-10-31] MEDS: CEFEPIME 1 GM in NA CHLORIDE 0.9% 100 ML IV SCH (08:30)
[2022-10-31] MEDS: ASPIRIN EC 81 MG TAB PO SCH (08:32)
[2022-10-31] MEDS: ASCORBIC ACID 500 MG TABLET PO SCH (08:32)
[2022-10-31] MEDS: ENOXAPARIN 40 MG/0.4 ML SQ SCH (08:32)
[2022-10-31] MEDS: ZINC SULFATE 220 MG CAP PO SCH (08:32)
[2022-10-31] MEDS: SILVER SULFADIAZINE 1% 25 GM TOP SCH (08:33)
--- NOTE | 2022-10-31 14:46 | P.PN ---
Date of Service: 10/31/22 Chief Complaint: Hand cellulitis. chest pain Subjective: s/p debridement and closure of left hand wound yesterday 10/30. Tolerated procedure well. No acute events reported overnight. Current plan for discharge home today on PO antibiotics and wound care. Physical Examination Temp Pulse Resp BP Pulse Ox 97.3 F 99 H 18 160/95 H 98 10/31/22 12:00 10/31/22 12:00 10/31/22 12:00 10/31/22 12:00 10/31/22 12:00 General: Alert, In no apparent distress, Oriented x3 HEENT: Atraumatic, Normocephalic Neck: Supple, JVD not distended Respiratory: Clear to auscultation bilaterally, Normal air movement Cardiovascular: No edema, Normal pulses Gastrointestinal: Normal bowel sounds, Soft and benign, Non-distended Integumentary: Other (s/p debridemenet and closure of left hand wound today Dressing clean dry and intact) Neurological: Normal speech, Normal tone, Normal affect Studies Laboratory Data - reviewed Microbiology Data - reviewed Imagings Data: - reviewed Medications List Reviewed: Yes Assessment and Plan Problem List Diabetes Mellitus Type II Hypertension Cellulitis of Left Hand with Abscess * Allergy: Penicillins * Abscess, Left Hand - s/p I&D of left hand abscess 10/28. - Currently on Cefepime and Vancomycin (started 10/28) - Wound culture left hand 10/28: gram stain no results. Culture results pending - s/p debridement and closure of wound yesterday 10/30. Tolerated procedure well. WBC 9.5 Afebrile Blood cultures: No growth to date Recommendations - Wound culture with no growth. Patient has been on Cefepime since 10/25 and Vancomycin since 10/27. --> discharge patient home on PO Doxycycline 100 mg PO BID x 7 days. - Continue wound care per Dr. Tubbs. Case discussed with Krista Hernandez
[2022-10-31 17:35] VITALS: BP 153/82; TEMP 96.9
== END 2022-10-31 17:17 | disposition home or self-care (01) | DRG 854 ==
LOC: ER 16:25 → ERHOLD 20:16 → 2ND 20:27 → OBSVTOIN 10-27 09:08
PROVIDERS: ADMIT Internal Medicine; ATTEND Hospitalist
PROC: 0JBK0ZZ Excision of Left Hand Subcutaneous Tissue and Fascia, Open Approach (ICD-10-PCS; principal; 2022-10-28 09:00)
PROC: 0JDK0ZZ Extraction of Left Hand Subcutaneous Tissue and Fascia, Open Approach (ICD-10-PCS; 2022-10-30)
DX: A41.9 Sepsis, unspecified organism (principal); L02.512 Cutaneous abscess of left hand; L03.114 Cellulitis of left upper limb; R65.20 Severe sepsis without septic shock; I10 Essential (primary) hypertension; M77.8 Other enthesopathies, not elsewhere classified; E11.65 Type 2 diabetes mellitus with hyperglycemia; Z88.0 Allergy status to penicillin; Z79.4 Long term (current) use of insulin; Z79.84 Long term (current) use of oral hypoglycemic drugs; Z79.82 Long term (current) use of aspirin; Z79.899 Other long term (current) drug therapy
CPT/HCPCS: 36415; 71045; 80048; 80061; 80076; 80202; 82947; 83036; 83605; 83735; 83880; 84100; 84443; 84484; 85025; 85610; 85730; 87040; 87070; 87075; 87205; 88304; 90471; 90714; 93005; 93306; 96361; 96374; 99285; G0378; J0360; J0692; J1100; J1170; J1650; J1815; J2001; J2250; J2405; J2704; J3010; J3475; J7030; J7040; J7050

== ENCOUNTER 2022-11-17 23:58 | Emergency (ER) | payer OTHER ==
[2022-11-18 01:03] LABS: Protime INR 0.95
[2022-11-18 01:16] LABS: Absolute Lymphocytes (CBC) 2.1 K/uL (0.7-4.9); Hematocrit 43.4 % (39.6-49.0); Lymphocytes % 28.8 % (15.3-44.8); MCV 88.3 fL (80-100); MPV 8.8 fL (7.6-11.3); RBC Red Blood Cell Count 4.92 M/uL (4.33-5.43)
[2022-11-18 01:20] LABS: Albumin 3.3 g/dL (3.4-5.0); Bilirubin Total 0.5 mg/dL (0.2-1.0); Potassium 3.6 mEq/L (3.5-5.1); Protein, Total 7.3 g/dL (6.4-8.2)
--- NOTE | 2022-11-18 01:48 | EDPHYS ---
Physician Documentation [facility] Name: Marek Paul III Age: 77 yrs Sex: Male : 1945 Arrival Date: 11/17/2022 Time: 23:58 Bed 13 Private MD: ANA ROSA Physician Jose Acosta HPI: 11/18 01:42 This 77 yrs old Male presents to ER via Wheelchair with complaints of Nose royce Bleed. 01:42 The patient presents with a nose bleed, that is apparently anterior, from the left royce nare. Onset: The symptoms/episode began/occurred just prior to arrival. Modifying factors: The symptoms are alleviated by nothing. the symptoms are aggravated by nothing. Associated signs and symptoms: The patient has no apparent associated signs or symptoms, Loss of consciousness: the patient experienced no loss of consciousness. The patient has not experienced similar symptoms in the past. 01:44 Severity of symptoms: At their worst the symptoms were mild in the emergency department royce the symptoms have improved moderately. Historical: - Allergies: 00:32 PENICILLINS; kd3 - Home Meds: 00:32 Insulin 30 U SQ BID [Active]; metformin 1,000 mg Oral tab 1 tab 2 times per day kd3 [Active]; - PMHx: 00:32 diabetes mellitus; Pancreatitis; kd3 - Immunization history:: Adult Immunizations up to date. - Social history:: Smoking status: Patient denies any tobacco usage or history of. ROS: 01:44 Constitutional: Negative for fever, chills, and weight loss, Eyes: Negative for injury, royce pain, redness, and discharge, Neck: Negative for injury, pain, and swelling, Cardiovascular: Negative for chest pain, palpitations, and edema, Respiratory: Negative for shortness of breath, cough, wheezing, and pleuritic chest pain, Abdomen/GI: Negative for abdominal pain, nausea, vomiting, diarrhea, and constipation, Back: Negative for injury and pain, : Negative for injury, bleeding, discharge, and swelling, MS/Extremity: Negative for injury and deformity, Skin: Negative for injury, rash, and discoloration, Neuro: Negative for headache, weakness, numbness, tingling, and seizure, Psych: Negative for depression, anxiety, suicide ideation, homicidal ideation, and hallucinations, Allergy/Immunology: Negative for hives, rash, and allergies, Endocrine: Negative for neck swelling, polydipsia, polyuria, polyphagia, and marked weight changes, Hematologic/Lymphatic: Negative for swollen nodes, abnormal bleeding, and unusual bruising. 01:44 ENT: Positive for nose bleed. Exam: :44 Constitutional: This is a well developed, well nourished patient who is awake, alert, royce and in no acute distress. Head/Face: Normocephalic, atraumatic. Eyes: Pupils equal round and reactive to light, extra-ocular motions intact. Lids and lashes normal. Conjunctiva and sclera are non-icteric and not injected. Cornea within normal limits. Periorbital areas with no swelling, redness, or edema. Neck: Trachea midline, no thyromegaly or masses palpated, and no cervical lymphadenopathy. Supple, full range of motion without nuchal rigidity, or vertebral point tenderness. No Meningismus. Chest/axilla: Normal chest wall appearance and motion. Nontender with no deformity. No lesions are appreciated. Cardiovascular: Regular rate and rhythm with a normal S1 and S2. No gallops, murmurs, or rubs. Normal PMI, no JVD. No pulse deficits. Respiratory: Lungs have equal breath sounds bilaterally, clear to auscultation and percussion. No rales, rhonchi or wheezes noted. No increased work of breathing, no retractions or nasal flaring. Abdomen/GI: Soft, non-tender, with normal bowel sounds. No distension or tympany. No guarding or rebound. No evidence of tenderness throughout. Back: No spinal tenderness. No costovertebral tenderness. Full range of motion. Skin: Warm, dry with normal turgor. Normal color with no rashes, no lesions, and no evidence of cellulitis. MS/ Extremity: Pulses equal, no cyanosis. Neurovascular intact. Full, normal range of motion. Neuro: Awake and alert, GCS 15, oriented to person, place, time, and situation. Cranial nerves II-XII grossly intact. Motor strength 5/5 in all extremities. Sensory grossly intact. Cerebellar exam normal. Normal gait. Psych: Awake, alert, with orientation to person, place and time. Behavior, mood, and affect are within normal limits. :44 ENT: Nose: no acute changes, External nose: no obvious acute abnormality, Nasal septum: is midline, Nasal mucosa: normal, Turbinates: are normal, abrasion, is not appreciated, bleeding, is not appreciated, clotted blood, in left nare, nasal drainage, is not appreciated, a foreign body, is not appreciated. Vital Signs: 00:27 BP 154 / 103; Pulse 91; Resp 18; Temp 98(O); Pulse Ox 95% on R/A; Weight 78.02 kg; kd3 Height 5 ft. 7 in. ; 01:37 BP 172 / 108; Pulse 83; Resp 18; Pulse Ox 98% on R/A; rv 01:53 BP 170 / 96; Pulse 81; Resp 18; Pulse Ox 99% on R/A; rv 00:27 Body Mass Index 26.94 (78.02 kg, 170.18 cm) kd3 MDM: 00:34 Patient medically screened. royce 01:48 Differential diagnosis: spontaneous epistaxis. Data reviewed: vital signs, nurses royce notes, lab test result(s), EKG, radiologic studies. Consideration of Admission/Observation Escalation of care including admission/observation considered. I considered the following discharge prescriptions or medication management in the emergency department Medications were administered in the Emergency Department. See MAR. Test considered but Not performed: EKG: no ekg. Care significantly affected by the following chronic conditions: Diabetes, pancreatitis. 11/18 00:37 Order name: CBC with Diff; Complete Time: 01:42 royce 11/18 00:37 Order name: Comprehensive Metabolic Panel; Complete Time: 01:42 royce 11/18 00:37 Order name: PT-INR; Complete Time: 01:42 royce 11/18 00:37 Order name: IV Saline Lock - Large Bore; Complete Time: 00:52 royce Administered Medications: 01:47 Drug: Norvasc PO 10 mg Route: PO; rv 01:54 Follow up: Response: Medication administered at discharge. rv Disposition Summary: 11/18/22 01:48 Discharge Ordered Location: Home royce Problem: new royce Symptoms: have improved royce Condition: Stable royce Diagnosis - Epistaxis royce - Essential (primary) hypertension royce Followup: royce - With: Private Physician - When: 2 - 3 days - Reason: Recheck today's complaints, Continuance of care, Re-evaluation by your physician Followup: royce - With: Leilani Lyons MD - When: 2 - 3 days - Reason: Recheck today's complaints, Continuance of care, Re-evaluation by your physician Discharge Instructions: - Discharge Summary Sheet royce - Nosebleed, Adult royce - Hypertension, Adult royce - Cool Mist Vaporizer royce - Hypertension, Adult, Brts-of-Firx royce - How to Take Your Blood Pressure, [id number]-[id number] royce - Managing Your Hypertension royce Forms: - Medication Reconciliation Form royce - Thank You Letter royce - Antibiotic Education royce - Prescription Opioid Use royce - [email or web address] royce Prescriptions: - Norvasc 10 mg Oral Tablet - take 1 tablet by ORAL route once daily; 30 tablet; Refills: 0, Product royce Selection Permitted Signatures: Dispatcher [employer] Jose Landrum MD MD cha Vicente, Ronaldo RN RN Brigid Ballard RN RN kd3
--- NOTE | 2022-11-18 01:48 | ER ---
Nurse's Notes [facility] Name: Marek Paul III Age: 77 yrs Sex: Male : 1945 Arrival Date: 11/17/2022 Time: 23:58 Bed 13 Private MD: Diagnosis: Epistaxis;Essential (primary) hypertension Presentation: 11/18 00:28 Chief complaint: Patient states: I have been bleeding since about noon today from my kd3 left nostril. It stopped for a minute and then it started again after I laid down. It has just been on and this afternoon and now the left side of my face is swollen a bit. This happened 7 years ago. They had to put in a nasal rocket and they gave me vitamin K. Risk Assessment: Do you want to hurt yourself or someone else? Patient reports no desire to harm self or others. Onset of symptoms was November 18, 2022. 00:28 Method Of Arrival: Wheelchair kd3 00:28 Acuity: SAPNA 4 kd3 00:33 Coronavirus screen: Vaccine status: Patient reports being unvaccinated. Ebola Screen: kd3 No symptoms or risks identified at this time. Initial Sepsis Screen: Does the patient meet any 2 criteria? No. Patient's initial sepsis screen is negative. Does the patient have a suspected source of infection? No. Patient's initial sepsis screen is negative. Triage Assessment: 00:33 General: Appears in no apparent distress. Behavior is calm, cooperative. Pain: Denies kd3 pain. Historical: - Allergies: 00:32 PENICILLINS; kd3 - Home Meds: 00:32 Insulin 30 U SQ BID [Active]; metformin 1,000 mg Oral tab 1 tab 2 times per day kd3 [Active]; - PMHx: 00:32 diabetes mellitus; Pancreatitis; kd3 - Immunization history:: Adult Immunizations up to date. - Social history:: Smoking status: Patient denies any tobacco usage or history of. Screenin:37 [facility] ED Fall Risk Assessment (Adult) History of falling in the last 3 months, rv including since admission No falls in past 3 months (0 pts) Confusion or Disorientation No (0 pts) Intoxicated or Sedated No (0 pts) Impaired Gait No (0 pts) Mobility Assist Device Used No (0 pt) Altered Elimination No (0 pt) Score/Fall Risk Level 0 - 2 = Low Risk Oriented to surroundings, Maintained a safe environment, Educated pt \T\ family on fall prevention, incl call for assistance when getting out of bed, Assessed \T\ reinforced patient's understanding of fall precautions, Provided non-skid footwear, Hourly rounding (assess needs \T\ fall precautionary measures) done, Used ambulatory aids as needed (educated on \T\ assisted with), Used gait belt as appropriate. Abuse screen: Denies threats or abuse. Denies injuries from another. Nutritional screening: No deficits noted. Tuberculosis screening: No symptoms or risk factors identified. Assessment: 01:00 General: Appears comfortable, Behavior is calm, cooperative. rv 01:00 Pain: Complains of pain in left nostril Neuro: Level of Consciousness is awake, alert, rv obeys commands, Oriented to person, place, time, situation. Cardiovascular: Capillary refill < 3 seconds. Respiratory: Airway is patent Respiratory effort is even, unlabored. GI: No signs and/or symptoms were reported involving the gastrointestinal system. : No signs and/or symptoms were reported regarding the genitourinary system. Vital Signs: 00:27 BP 154 / 103; Pulse 91; Resp 18; Temp 98(O); Pulse Ox 95% on R/A; Weight 78.02 kg; kd3 Height 5 ft. 7 in. ; 01:37 BP 172 / 108; Pulse 83; Resp 18; Pulse Ox 98% on R/A; rv 01:53 BP 170 / 96; Pulse 81; Resp 18; Pulse Ox 99% on R/A; rv 00:27 Body Mass Index 26.94 (78.02 kg, 170.18 cm) kd3 ED Course: 11/17 23:59 Patient arrived in ED. ja2 11/18 00:32 Triage completed. kd3 00:33 Arm band placed on right wrist. kd3 00:34 Jose Acosta MD is Attending Physician. royce 00:42 Ghazal Aguilar, FARRUKH is Primary Nurse. ha1 00:52 PT-INR Sent. bc6 00:52 Comprehensive Metabolic Panel Sent. bc6 00:52 CBC with Diff Sent. bc6 00:52 Inserted saline lock: 20 gauge in right antecubital area, using aseptic technique. bc6 01:37 Patient has correct armband on for positive identification. Client placed on continuous rv cardiac and pulse oximetry monitoring. NIBP monitoring applied. 01:37 No provider procedures requiring assistance completed. rv 01:47 Leilani Lyons MD is Referral Physician. royce 01:54 IV discontinued, intact, bleeding controlled, No redness/swelling at site. Pressure rv dressing applied. Administered Medications: 01:47 Drug: Norvasc PO 10 mg Route: PO; rv 01:54 Follow up: Response: Medication administered at discharge. rv Medication: 01:37 VIS not applicable for this client. rv Outcome: 01:48 Discharge ordered by . royce 01:54 Discharged to home ambulatory, with family. rv 01:54 Condition: improved 01:54 Discharge instructions given to patient, Instructed on discharge instructions, follow up and referral plans. medication usage, Demonstrated understanding of instructions, follow-up care, medications, Prescriptions given X 1. 01:54 Patient left the ED. rv Signatures: Jose Acosta MD MD cha Vicente, Ronaldo RN RN rv Rubia Carrillo2 Brigid Rolon RN RN kd3 Ghazal Aguilar RN RN ha1 Angie Castorena 6
[2022-11-18] MEDS ORDERED: AMLODIPINE 10 MG TAB ONE (01:53)
[2022-11-18 02:11] VITALS: TEMP 98
[2022-11-18 02:13] VITALS: BP 170/96; O2SAT 99
== END 2022-11-18 01:54 | disposition home or self-care (01) ==
LOC: ER 23:58
DX: R04.0 Epistaxis (principal); I10 Essential (primary) hypertension; E11.9 Type 2 diabetes mellitus without complications; Z79.4 Long term (current) use of insulin; Z88.0 Allergy status to penicillin
CPT/HCPCS: 36415; 80053; 85025; 85610

== ENCOUNTER 2023-01-23 00:30 | Emergency (ER) | payer OTHER ==
[2023-01-23 02:13] LABS: Specific Gravity 1.015 (1.005-1.030); Urine Bilirubin NEGATIVE (Negative); Urine Blood Negative (Negative); Urine Clarity Clear (Clear); Urine Color Light-Yellow (Yellow); Urine Glucose 2+ (Negative); Urine Protein NEGATIVE (Negative); Urine Urobilinogen Normal (Normal); Urine pH 6.5 (5.0-7.0)
[2023-01-23 02:16] LABS: Hematocrit 46.3 % (39.6-49.0); Lymphocytes % 23.3 % (15.3-44.8); MCV 88.8 fL (80-100); MPV 8.5 fL (7.6-11.3); Platelets 188 thou/uL (152-406); RBC Red Blood Cell Count 5.21 M/uL (4.33-5.43)
[2023-01-23 02:26] LABS: Albumin 3.5 g/dL (3.4-5.0); Bilirubin Direct 0.2 mg/dL (0-0.2); Bilirubin Indirect, Calculated 0.3 mg/dL (0.2-0.8); Bilirubin Total 0.5 mg/dL (0.2-1.0); Magnesium 1.9 mg/dL (1.6-2.4); Potassium 3.9 mEq/L (3.5-5.1); Protein, Total 7.6 g/dL (6.4-8.2); Troponin High Sensitivity 12.1 pg/mL (<58.9)
--- NOTE | 2023-01-23 02:54 | ER ---
Nurse's Notes [facility] Name: Marek Paul III Age: 77 yrs Sex: Male : 1945 Arrival Date: 01/23/2023 Time: 00:30 Bed 7 Private MD: Diagnosis: Dizziness and giddiness Presentation: 01/23 00:46 Chief complaint: Patient states: dizziness with fall,onset 0600 on . Patient pf1 stated upon standing he became dizzy and fell. Patient denies any pain or injury from fall. Patient stated upon falling he caught himself by grabbing onto stuff to break his fall. 00:46 Coronavirus screen: Vaccine status: Patient reports being unvaccinated. Client denies pf1 travel out of the [place] in the last 14 days. At this time, the client does not indicate any symptoms associated with coronavirus-19. Ebola Screen: Patient negative for fever greater than or equal to 101.5 degrees Fahrenheit, and additional compatible Ebola Virus Disease symptoms. Initial Sepsis Screen: Does the patient meet any 2 criteria? No. Patient's initial sepsis screen is negative. Does the patient have a suspected source of infection? No. Patient's initial sepsis screen is negative. Risk Assessment: Do you want to hurt yourself or someone else? Patient reports no desire to harm self or others. 00:46 Acuity: SAPNA 3 pf1 01:11 Method Of Arrival: Wheelchair pf1 01:52 Onset of symptoms was January 22, 2023. lg3 Historical: - Allergies: 01:21 PENICILLINS; pf1 - Home Meds: 01:21 Insulin 30 U SQ BID [Active]; metformin 1,000 mg Oral tab 1 tab 2 times per day pf1 [Active]; - PMHx: 01:21 diabetes mellitus; Pancreatitis; pf1 - PSHx: 01:21 left hand surgery; pf1 - Immunization history:: Adult Immunizations up to date, Client reports having NOT received the Covid vaccine. Last tetanus immunization: < 5 years ago Flu vaccine is not up to date. - Social history:: Smoking status: Patient denies any tobacco usage or history of. Patient/guardian denies using alcohol, street drugs. Screenin:48 [facility] ED Fall Risk Assessment (Adult) History of falling in the last 3 months, lg3 including since admission Yes- single mechanical fall (1 pt) Confusion or Disorientation No (0 pts) Intoxicated or Sedated No (0 pts) Impaired Gait No (0 pts) Mobility Assist Device Used No (0 pt) Altered Elimination No (0 pt) Score/Fall Risk Level 0 - 2 = Low Risk Oriented to surroundings, Maintained a safe environment, Educated pt \T\ family on fall prevention, incl call for assistance when getting out of bed. Abuse screen: Denies threats or abuse. Denies injuries from another. Nutritional screening: No deficits noted. Tuberculosis screening: No symptoms or risk factors identified. Assessment: 01:48 General: Appears in no apparent distress. comfortable, Behavior is calm, cooperative. lg3 Pain: Denies pain. Neuro: No deficits noted. White Agitation-Sedation Scale (RASS): 0 - Alert and Calm Level of Consciousness is awake, alert, obeys commands, Oriented to person, place, time, situation. Cardiovascular: No deficits noted. Denies chest pain, shortness of breath, Capillary refill < 3 seconds Clubbing of nail beds is absent JVD is absent Patient's skin is warm and dry. Respiratory: No deficits noted. Airway is patent Respiratory effort is even, unlabored, Respiratory pattern is regular, symmetrical. GI: No deficits noted. No signs and/or symptoms were reported involving the gastrointestinal system. Abdomen is round non-distended. : No deficits noted. No signs and/or symptoms were reported regarding the genitourinary system. EENT: No deficits noted. No signs and/or symptoms were reported regarding the EENT system. Derm: No deficits noted. No signs and/or symptoms reported regarding the dermatologic system. Skin is intact, is healthy with good turgor, Skin is dry, Skin is normal, Skin temperature is warm. Musculoskeletal: No deficits noted. Circulation, motion, and sensation intact. 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 03:00 Reassessment: No changes from previously documented assessment. Patient and/or family vc1 updated on plan of care and expected duration. Pain level reassessed. Patient is alert, oriented x 3, equal unlabored respirations, skin warm/dry/pink. Vital Signs: 00:46 BP 163 / 94; Pulse 76; Resp 17; Temp 98.8; Pulse Ox 97% on R/A; Weight 74.84 kg; Height pf1 5 ft. 7 in. ; Pain 0/10; 01:51 BP 168 / 90 Supine; Pulse 74; lg3 01:51 BP 171 / 111 Sitting; Pulse 89; lg3 01:51 BP 170 / 107 Standing; Pulse 92; lg3 02:59 Pulse 100; Resp 17; Pulse Ox 99% ; vc1 00:46 Body Mass Index 25.84 (74.84 kg, 170.18 cm) pf1 00:46 Pain Scale: Adult pf1 ED Course: 00:33 Patient arrived in ED. mr 00:42 Lety Mtz PA-C is PHCP. sb4 00:42 Jose Pierson MD is Attending Physician. sb4 01:21 Triage completed. pf1 01:48 Mirela Mcclendon, RN is Primary Nurse. lg3 01:48 Patient has correct armband on for positive identification. Placed in gown. Bed in low lg3 position. Call light in reach. Side rails up X 1. Client placed on continuous cardiac and pulse oximetry monitoring. NIBP monitoring applied. case monitor on. Door closed. Noise minimized. Warm blanket given. Family accompanied patient. 01:48 Inserted saline lock: 20 gauge in left forearm, using aseptic technique. Blood lg3 collected. Patient maintains SpO2 saturation greater than 95% on room air. 01:52 Arm band placed on right wrist. lg3 02:00 Chest Single View XRAY In Process Unspecified. EDMS 02:07 CT Head Brain wo Cont In Process Unspecified. EDMS 02:53 Jax Juares MD is Referral Physician. sb4 03:19 No provider procedures requiring assistance completed. IV discontinued, intact, vc1 bleeding controlled, No redness/swelling at site. Pressure dressing applied. Administered Medications: 02:59 Drug: Meclizine PO 25 mg Route: PO; vc1 Medication: 03:20 VIS not applicable for this client. vc1 Outcome: 02:53 Discharge ordered by . sb4 03:20 Discharged to home via wheelchair. vc1 03:20 Condition: good 03:20 Discharge instructions given to patient, Instructed on discharge instructions, follow up and referral plans. Demonstrated understanding of instructions, follow-up care. 03:22 Patient left the ED. vc1 Signatures: Dispatcher [employer] ANA ROSAKY Chester, Sue McclendonMirela, RN RN lg3 Brenda Allen RN RN vc1 Lety Mtz, PANirmalaC PA-C sb4 Kassandra Jiang RN RN pf1 Corrections: (The following items were deleted from the chart) 01:21 01:11 Chief complaint: Patient states: dizziness with fall,onset 0600 on . pf1 Patient stated upon standing he became dizzy and fell. Patient denies any pain or injury from fall. Patient stated upon falling he caught himself by grabbing onto stuff to break his fall. pf1 02:03 01:51 LIPASE+C.LAB.BRZ drawn and sent. lg3 EDMS
--- NOTE | 2023-01-23 02:54 | EDPHYS ---
Physician Documentation [facility] Name: Marek Paul III Age: 77 yrs Sex: Male : 1945 Arrival Date: 01/23/2023 Time: 00:30 Bed 7 Private MD: ED Physician Jose Pierson HPI: 01/23 01:28 This 77 yrs old Male presents to ER via Wheelchair with complaints of Dizziness. sb4 01:29 Patient states when he woke up this morning he felt very dizzy and slowly fell down to sb4 the ground gently. He states he was able to stand up after a few minutes, checked his blood sugar, and ate some food and was feeling better. However, he states that he had 3 more episodes like this today and is unsure why. He denies any chest pain, shortness of breath, fever, abdominal pain, nausea, vomit. Historical: - Allergies: 01:21 PENICILLINS; pf1 - Home Meds: 01:21 Insulin 30 U SQ BID [Active]; metformin 1,000 mg Oral tab 1 tab 2 times per day pf1 [Active]; - PMHx: 01:21 diabetes mellitus; Pancreatitis; pf1 - PSHx: 01:21 left hand surgery; pf1 - Immunization history:: Adult Immunizations up to date, Client reports having NOT received the Covid vaccine. Last tetanus immunization: < 5 years ago Flu vaccine is not up to date. - Social history:: Smoking status: Patient denies any tobacco usage or history of. Patient/guardian denies using alcohol, street drugs. ROS: 01:29 Constitutional: Negative for fever, chills, and weight loss. sb4 01:29 Neuro: Positive for dizziness. 01:29 All other systems are negative. Exam: 01:31 Constitutional: This is a well developed, well nourished patient who is awake, alert, sb4 and in no acute distress. Head/Face: Normocephalic, atraumatic. Eyes: Extra-ocular motions intact. Periorbital areas with no swelling, redness, or edema. ENT: Mucous membranes moist. Cardiovascular: Regular rate and rhythm with a normal S1 and S2. Respiratory: Lungs have equal breath sounds bilaterally, clear to auscultation and percussion. No rales, rhonchi or wheezes noted. No increased work of breathing, no retractions or nasal flaring. Abdomen/GI: Soft, non-tender, no distension. Skin: Warm, dry with normal turgor. Normal color with no rashes, no lesions, and no evidence of cellulitis. MS/ Extremity: Pulses equal, no cyanosis. Neurovascular intact. Full, normal range of motion. Neuro: Awake and alert, GCS 15, oriented to person, place, time, and situation. Cranial nerves II-XII grossly intact. Motor strength 5/5 in all extremities. Sensory grossly intact. Cerebellar exam normal. Normal gait. Vital Signs: 00:46 BP 163 / 94; Pulse 76; Resp 17; Temp 98.8; Pulse Ox 97% on R/A; Weight 74.84 kg; Height pf1 5 ft. 7 in. ; Pain 0/10; 01:51 BP 168 / 90 Supine; Pulse 74; lg3 01:51 BP 171 / 111 Sitting; Pulse 89; lg3 01:51 BP 170 / 107 Standing; Pulse 92; lg3 02:59 Pulse 100; Resp 17; Pulse Ox 99% ; vc1 00:46 Body Mass Index 25.84 (74.84 kg, 170.18 cm) pf1 00:46 Pain Scale: Adult pf1 MDM: 00:43 Patient medically screened. sb4 01:31 Differential Diagnosis Dehydration, electrolyte abnormality, hyperglycemia, sb4 hypoglycemia, vertigo, brain mass, arrhythmia. 02:53 Data reviewed: vital signs, nurses notes, lab test result(s), EKG, radiologic studies, sb4 and as a result, I will discharge patient. Consideration of Admission/Observation Escalation of care including admission/observation considered. Care significantly affected by the following chronic conditions: Diabetes, Hypertension. Counseling: I had a detailed discussion with the patient and/or guardian regarding the historical points, exam findings, and any diagnostic results supporting the discharge/admit diagnosis, the presence of at least one elevated blood pressure reading (>120/80) during this emergency department visit, lab results, radiology results, the need for outpatient follow up, a neurologist, to return to the emergency department if symptoms worsen or persist or if there are any questions or concerns that arise at home. 01/23 01:14 Order name: Basic Metabolic Panel; Complete Time: 02:26 sb4 01/23 01:14 Order name: CBC with Diff; Complete Time: 02:25 sb4 01/23 01:14 Order name: Hepatic Function; Complete Time: 02:26 sb4 01/23 01:14 Order name: Magnesium; Complete Time: 02:26 sb4 01/23 01:14 Order name: Protime (+inr); Complete Time: 02:25 sb4 01/23 01:14 Order name: Ptt, Activated; Complete Time: 02:25 sb4 01/23 01:14 Order name: Troponin High Sensitivity; Complete Time: 02:26 sb4 01/23 01:14 Order name: Urinalysis w/ reflexes; Complete Time: 02:25 sb4 01/23 02:03 Order name: Lipase; Complete Time: 02:26 EDMS 01/23 01:14 Order name: CT Head Brain wo Cont sb4 01/23 01:14 Order name: Chest Single View XRAY sb4 01/23 01:14 Order name: EKG; Complete Time: 01:15 sb4 01/23 01:14 Order name: Cardiac monitoring; Complete Time: 01:51 sb4 01/23 01:14 Order name: EKG - Nurse/Tech; Complete Time: 01:51 sb4 01/23 01:14 Order name: IV Saline Lock; Complete Time: 01:51 sb4 01/23 01:14 Order name: Labs collected and sent; Complete Time: 01:51 sb4 01/23 01:14 Order name: O2 Per Protocol; Complete Time: 01:51 sb4 01/23 01:14 Order name: O2 Sat Monitoring; Complete Time: 01:51 sb4 01/23 01:14 Order name: Orthostatics; Complete Time: 01:51 sb4 EC:26 Rate is 77 beats/min. Rhythm is regular, Normal Sinus Rhythm. CO interval is normal at sb4 188 msec. QRS interval is normal at 78 msec. QT interval is normal at 374 msec. No Q waves. T waves are Normal. No ST changes noted. Clinical impression: Normal ECG. Interpreted by me. Reviewed by me. Administered Medications: 02:59 Drug: Meclizine PO 25 mg Route: PO; vc1 Disposition: 02:49 Co-signature as Attending Physician, Jose Pierson MD I agree with the assessment sp4 and plan of care. I reviewed the patient's care provided by Advanced Practice Provider \T\ agree w/ the diagnosis \T\ care plan. I personally saw the pt \T\ performed a substantive portion of the visit, incldng all aspects of the (History/Exam/Medical Decision Making). Disposition Summary: 01/23/23 02:53 Discharge Ordered Location: Home sb4 Problem: new sb4 Symptoms: have improved sb4 Condition: Stable sb4 Diagnosis - Dizziness and giddiness sb4 Followup: sb4 - With: - When: As needed - Reason: Recheck today's complaints, Continuance of care, Re-evaluation by your physician Discharge Instructions: - Discharge Summary Sheet sb4 - Dizziness sb4 - Fall Prevention in the Home, Adult, [id number] sb4 Forms: - Medication Reconciliation Form sb4 - Thank You Letter sb4 - Antibiotic Education sb4 - Prescription Opioid Use sb4 - Patient Portal Instructions sb4 - Leadership Thank You Letter sb4 Prescriptions: - Meclizine 25 mg Oral Tablet - take 1 tablet by ORAL route every 8 hours As needed; 30 tablet; Refills: 0, sb4 Product Selection Permitted Signatures: Dispatcher [employer] EDMS Brenda Allen RN RN vc1 Lety Mtz PA-C PA-C sb4 Kassandra Jiang RN RN pf1 Jose Pierson MD MD sp4 Corrections: (The following items were deleted from the chart) 01:31 01:14 NPO ordered. sb4 sb4 02:03 01:31 LIPASE+C.LAB.BRZ ordered. EDMS EDMS
[2023-01-23] MEDS ORDERED: MECLIZINE HCL 12.5 MG TAB ONE (03:08)
[2023-01-23 03:31] VITALS: TEMP 98.8
[2023-01-23 03:32] VITALS: BP 170/107
[2023-01-23 03:33] VITALS: O2SAT 99
--- NOTE | 2023-01-23 11:31 | RAD REPORT ---
EXAM DESCRIPTION: CT - Head Brain Wo Cont - 01/23/2023 5:26 am CLINICAL HISTORY: 77 years, Male, DIZZINESS COMPARISON: None. FINDINGS: Multiple transaxial tomograms of the brain were obtained from the base of the skull to the vertex without contrast. 2-D multiplanar reformats and the coronal and sagittal plane were performed and reviewed. This exam was performed according to our departmental dose-optimization protocol, which includes auto mated exposure control, adjustment of the mA and/or kV according to patient size and/or use of iterat shaan reconstruction technique. Brain parenchyma demonstrate mild prominence of the sulci and gyri are corresponding to mild cerebral and cerebellar atrophy. There is very minimal periventricular white matter changes of microvascular ischemia. There is no midline shift and/or mass effect. There is no evidence for acute intracranial h emorrhage. Lateral ventricles and cisterns displace normal appearance. No intra or extra axial fl uid collections were seen. The calvarium is intact with no evidence for fracture. The visualized port ions of the paranasal sinuses and orbits demonstrate to be clear. IMPRESSION: No acute intracranial hemorrhage identified. Mild brain atrophy with very minimal periventricular white matter changes of microvascular ischemia. Electronically signed by: Gomez Robertson MD 01/23/2023 2:17 AM CDT Due to temporary technical issues with the PACS/Fluency reporting system, reports are being signed by the in house radiologists without review as a courtesy to insure prompt reporting. The interpreting radiologist is fully responsible for the content of the report.
--- NOTE | 2023-01-23 11:34 | RAD REPORT ---
EXAM DESCRIPTION: RAD - Chest Single View - 01/23/2023 1:58 am CLINICAL HISTORY: 77 years, Male, SOB COMPARISON: 10/25/2022 FINDINGS: Single view of the chest was obtained portable. Prior films were compared. External EKG le ads within the [id number] limits diagnosis The cardiomediastinal silhouette demonstrate to be unre markable. The heart is not enlarged. The thoracic aorta is unremarkable. The pulmonary vasculature is normal distribution. Costophrenic angles are sharp. No areas of consolidation or masses are seen. Minimal degenerative changes glenohumeral joints and bilateral AC joints. The rest of the soft tiss ue and bony structures demonstrate to be unremarkable. IMPRESSION: No acute cardiopulmonary disease seen. Electronically signed by: Gomez Robertson MD 01/23/2023 2:07 AM CDT Due to temporary technical issues with the PACS/Fluency reporting system, reports are being signed by the in house radiologists without review as a courtesy to insure prompt reporting. The interpreting radiologist is fully responsible for the content of the report.
--- NOTE | 2023-01-23 15:21 | EKG ---
Test Date: 2023-01-23 Test Time: 01:40:53 Cage Maker: JOSE MEASUREMENT RESULTS: Intervals: Rate: 77 PA: 188 QRSD: 78 QT: 374 QTc: 423 [place]: P: 51 PA: 188 QRS: 30 T: 39 INTERPRETIVE STATEMENTS: Normal sinus rhythm Normal ECG Compared to ECG 10/27/2022 17:35:08 Myocardial infarct finding no longer present Electronically Signed On 01-23-23 15:20:36 CDT by Tobi Kemp
== END 2023-01-23 03:22 | disposition home or self-care (01) ==
LOC: ER 00:30
DX: R42 Dizziness and giddiness (principal); E11.9 Type 2 diabetes mellitus without complications; Z79.4 Long term (current) use of insulin; Z88.0 Allergy status to penicillin; Z28.310 Unvaccinated for COVID-19
CPT/HCPCS: 93005; 85025; 80048; 36415; 83735; 85610; 80076; 85730; 81003; 84484; 83690; 70450; 71045; 99285; J8597

== ENCOUNTER 2024-02-05 18:52 | Emergency (ER) | payer OTHER ==
[2024-02-05] MEDS ORDERED: FENTANYL CITR 100 MCG/2 ML ONE (20:13)
[2024-02-05] MEDS ORDERED: NA CHLORIDE 0.9% 500 ML ONE (20:13)
[2024-02-05] MEDS ORDERED: MORPHINE 4 MG/ML SYR ONE (20:13)
[2024-02-05 20:24] LABS: Absolute Basophils 0.1 K/uL (0-0.5); Absolute Eosinophils 0.2 K/uL (0-0.5); Absolute Lymphocytes (CBC) 1.9 K/uL (0.7-4.9); Absolute Monocytes 0.8 K/uL (0.1-1.3); Absolute Neutrophil 5.9 K/uL (1.8-8.0); Basophils % 0.8 % (0-1.3); Eosinophils % 1.9 % (0-4.4); Hematocrit 43.6 % (39.6-49.0); Hemoglobin 14.5 g/dL (13.6-17.9); Lymphocytes % 21.6 % (15.3-44.8); MCH 29.9 pg (27.0-35.0); MCHC 33.2 g/dL (32.0-36.0); MPV 8.5 fL (7.6-11.3); Monocytes % 8.7 % (3.3-12.3); Nucleated Red Blood Cells % 0.1 % (0-0); Platelets 190 thou/uL (152-406); RBC Red Blood Cell Count 4.84 M/uL (4.33-5.43); Red Cell Distribution Width 13.6 % (12.1-15.2)
[2024-02-05 20:41] LABS: Albumin 3.4 g/dL (3.4-5.0); Albumin/Globulin Ratio 0.8 (1.1-1.8); Anion Gap 9.1 mEq/L (5.0-15.0); Bilirubin Total 0.4 mg/dL (0.2-1.0); Globulin 4.3 g/dL (2.3-3.5); Potassium 4.1 mEq/L (3.5-5.1); Protein, Total 7.7 g/dL (6.4-8.2)
[2024-02-05 20:51] LABS: Specific Gravity 1.018 (1.005-1.030); Sqamous Epithelial None Seen /HPF (None Seen); Urine Bacteria None Seen /HPF (<20); Urine Bilirubin NEGATIVE (Negative); Urine Blood Negative (Negative); Urine Clarity Clear (Clear); Urine Color Light-Yellow (Yellow); Urine Culture Reflex Order NOT NEEDED; Urine Glucose NEGATIVE (Negative); Urine Ketones NEGATIVE (Negative); Urine Microscopic Reflex YN ORDER UMIC; Urine Mucus Slight /HPF (None Seen); Urine Nitrite NEGATIVE (Negative); Urine Protein NEGATIVE (Negative); Urine RBC <5 /HPF (None Seen); Urine Urobilinogen Normal (Normal); Urine WBC <5 /HPF (<5); Urine pH 5.5 (5.0-7.0)
--- NOTE | 2024-02-05 21:04 | RAD REPORT ---
EXAMINATION: US LOWER EXTREMITY VENOUS DOPPLER RIGHT SIDE CLINICAL INDICATION: Male, 78 years old. Pain TECHNIQUE: Complete bilateral duplex sonography of the lower extremity veins was performed. The exami nation included compression for vein patency, color Doppler imaging and flow augmentation in response to distal compression of the distal external iliac, common femoral, femoral, popliteal, sandra aicha, tibial and great saphenous veins. [id number]. COMPARISON: No prior exams FINDINGS: Duplex sonography imaging demonstrates all deep examined to be fully compressible with spontaneous, p hasic and augmented flow in the right lower extremity. IMPRESSION: No evidence of deep venous thrombosis seen in the right lower extremity.
--- NOTE | 2024-02-05 21:24 | RAD REPORT ---
EXAMINATION: CT ABDOMEN AND PELVIS WITH CONTRAST CLINICAL INDICATION: Male, 78 years old. ABD PAIN TECHNIQUE: CT abdomen and pelvis was performed, after the administration of IV contrast, as per [facility] protocol. Axial, sagittal and coronal reconstructions were obtained. One or more of the following dose reduction techniques were used: Automated exposure control, adjustment of the mA and/o r kV according to patient size, and/or iterative reconstruction. Unless otherwise specified, incidental findings do not require dedicated imaging follow-up. [id number]. COMPARISON:05/25/21 FINDINGS: LOWER CHEST: Moderately thickened distal esophagus likely reflect esophagitis. LIVER: Hepatic steatosis. GALLBLADDER/BILE DUCT: Cholelithiasis. No CT evidence of acute process.? PANCREAS: No mass, ductal dilation, or cinthia-pancreatic fluid. SPLEEN: Normal size. No focal lesion. ADRENALS: Normal; no mass. KIDNEYS AND URETERS: 3 mm stone in the left kidney. Bilateral renal lesions which are either benign i n appearance or too small to accurately characterize but statistically benign. URINARY BLADDER: Normal contour. GASTROINTESTINAL TRACT: Stomach is non-dilated. Small bowel has normal course and caliber. No colonic wall thickening or pericolonic inflammatory changes. Diverticulosis without diverticulitis. No appendicitis. PERITONEUM: Large right inguinal hernia containing bowel. No bowel obstruction. Fat-containing left i nguinal hernia. LYMPH NODES: No lymphadenopathy. ABDOMINAL AORTA AND OTHER VESSELS: Normal caliber aorta and IVC. REPRODUCTIVE ORGANS: Mild prostatomegaly. Hydroceles bilaterally only partially imaged. MUSCULOSKELETAL: No acute or suspicious osseous abnormality. Multilevel degenerative changes are pres ent in the spine. ADDITIONAL FINDINGS: None. IMPRESSION: No acute or significant abnormalities seen in the abdomen or pelvis. Cholelithiasis without CT eviden ce of acute cholecystitis. No appendicitis. Nonobstructive left nephrolithiasis.
--- NOTE | 2024-02-05 22:29 | ER ---
Nurse's Notes [facility] Name: Marek Paul III Age: 78 yrs Sex: Male : 1945 Arrival Date: 02/05/2024 Time: 18:52 Bed 20 Private MD: Diagnosis: Unilateral inguinal hernia, without obstruction or gangrene, not specified as recurrent;Lower abdominal pain, unspecified;Pain in right leg;Other cholelithiasis without obstruction Presentation: 02/04 19:18 Chief complaint: Patient states: Pt states he sat up in bed Thursday, swung his rt leg dd2 over to get out of bed and began having RT LEG and lower Rt flank pain. States he works out but has not been able to do to the pain and difficulty walking. Coronavirus screen: At this time, the client does not indicate any symptoms associated with coronavirus-19. 19:18 Method Of Arrival: Ambulatory dd2 19:18 Ebola Screen: No symptoms or risks identified at this time. Initial Sepsis Screen: Does dd2 the patient meet any 2 criteria? No. Patient's initial sepsis screen is negative. Does the patient have a suspected source of infection? No. Patient's initial sepsis screen is negative. Risk Assessment: Do you want to hurt yourself or someone else? Patient reports no desire to harm self or others. Onset of symptoms is unknown. 19:18 Acuity: SAPNA 3 dd2 Triage Assessment: 19:21 General: Appears in no apparent distress. Behavior is calm, cooperative, appropriate dd2 for age. Pain: Complains of pain in right lower quadrant and right leg Pain currently is 6 out of 10 on a pain scale. Musculoskeletal: Reports pain in right leg difficulty ambulating. Historical: - Allergies: 19:21 PENICILLINS; dd2 - PMHx: 19:21 diabetes mellitus; Pancreatitis; dd2 - PSHx: 19:21 left hand surgery; dd2 - Immunization history:: Adult Immunizations unknown. - Infectious Disease History:: Denies. - Social history:: Smoking status: Patient denies any tobacco usage or history of. Screenin:00 [facility] ED Fall Risk Assessment (Adult) History of falling in the last 3 months, ar6 including since admission No falls in past 3 months (0 pts) Confusion or Disorientation No (0 pts) Intoxicated or Sedated No (0 pts) Impaired Gait No (0 pts) Mobility Assist Device Used No (0 pt) Altered Elimination No (0 pt) Score/Fall Risk Level 0 - 2 = Low Risk. Abuse screen: Denies threats or abuse. Denies injuries from another. Nutritional screening: No deficits noted. Tuberculosis screening: No symptoms or risk factors identified. Assessment: 20:00 General: Appears in no apparent distress. uncomfortable, Behavior is. Pain: Complains ar6 of pain in back Pain radiates to left leg Pain currently is 4 out of 10 on a pain scale. at worst was 10 out of 10 on a pain scale. Quality of pain is described as sharp, shooting, Pain began 2-3 days ago. Neuro: Level of Consciousness is awake, alert, obeys commands, Oriented to person, place, time, situation. Cardiovascular: Capillary refill < 3 seconds. Respiratory: Airway is patent. GI: Abdomen is round non-distended. : Urine is cloudy. EENT: Derm: Skin is intact, is healthy with good turgor, Skin is dry, Skin is pink, warm \T\ dry. Musculoskeletal: No signs and/or symptoms reported regarding the musculoskeletal system. Vital Signs: 19:18 BP 164 / 96; Pulse 81; Resp 16; Temp 98.3; Pulse Ox 97% ; Weight 83.91 kg; dd2 20:00 BP 167 / 101; Pulse 77; Resp 18; Temp 98; Pulse Ox 99% on R/A; Pain 4/10; ar6 23:10 BP 154 / 82; Pulse 82; Resp 18; Pulse Ox 100% on R/A; ar6 20:00 Pain Scale: Adult ar6 ED Course: 18:57 Patient arrived in ED. im 19:15 Jose Siegel PA is PHCP. cp 19:15 Jose Acosta MD is Attending Physician. cp 19:21 Triage completed. dd2 19:21 Arm band placed on left wrist. Patient notified of wait time. dd2 19:39 Sharmaine Garsia, RN is Primary Nurse. ar6 20:00 No apparent distress. Awaiting radiology results. ar6 20:00 Patient has correct armband on for positive identification. Placed in gown. Bed in low ar6 position. Call light in reach. Side rails up X2. Provided Education on: Blood Transfusion. Pulse ox on. NIBP on. Door closed. Warm blanket given. Head of bed elevated. 20:00 No provider procedures requiring assistance completed. ar6 20:10 Inserted saline lock: 22 gauge in left antecubital area, using aseptic technique. Blood oe collected. Flushed with 10 mL NS. 20:47 US Extremity Venous Unilateral Ltd In Process Unspecified. EDMS 21:13 CT Abd/Pelvis - IV Contrast Only In Process Unspecified. EDMS 22:27 Shahriar Proctor MD is Referral Physician. cp 23:10 IV discontinued, intact, bleeding controlled, No redness/swelling at site. Pressure ar6 dressing applied. Administered Medications: 20:23 Drug: morphine IVP or IV 4 mg IVP once over 4 mins Route: IVP; Infused Over: 4 mins; ar6 Site: left antecubital; 22:45 Follow up: Response: No adverse reaction; Pain is decreased ar6 20:23 Drug: fentaNYL (PF) IVP 25 mcg IVP once Route: IVP; Site: left antecubital; ar6 22:45 Follow up: Response: No adverse reaction; Pain is decreased ar6 20:23 Drug: NS 0.9% IV 500 ml IV at 500 ml/hr continuous Route: IV; Rate: 500 ml/hr; Site: ar6 left antecubital; 22:44 Follow up: IV Status: Completed infusion; IV Intake: 500ml ar6 Medication: 20:00 VIS not applicable for this client. ar6 Intake: 22:44 IV: 500ml; Total: 500ml. ar6 Outcome: 22:28 Discharge ordered by . cp 23:10 Discharged to home ambulatory, ar6 23:10 Condition: good 23:10 Discharge instructions given to patient, Instructed on discharge instructions, follow up and referral plans. medication usage, Demonstrated understanding of instructions, follow-up care, medications, Prescriptions given X 2, 23:10 Patient left the ED. ar6 Signatures: Dispatcher [employer] EDCA Jose Siegel PA PA cp Espinosa, Orlando oe Mendoza, Itzel im Roberts, Amber, RN RN ar6 NEAL MARTINEZ RN RN dd2
--- NOTE | 2024-02-05 22:29 | EDPHYS ---
Physician Documentation [facility] Name: Marek Paul III Age: 78 yrs Sex: Male : 1945 Arrival Date: 02/05/2024 Time: 18:52 Bed 20 Private MD: ED Physician Jose Acosta HPI: 02/04 19:45 This 78 yrs old Male presents to ER via Ambulatory with complaints of Leg Pain, Flank cp Pain. 19:45 The patient presents with pain, that is acute. The complaints affect the right upper cp thigh and right quadriceps. Context: resulted from an unknown cause. Associated signs and symptoms: Pertinent positives: right flank and right side abdominal pain, Pertinent negatives fever, known injury. Treatment prior to arrival includes: no previous treatment. 19:45 Onset: The symptoms/episode began/occurred since this past Thursday after sitting up in bed. Historical: - Allergies: 19:21 PENICILLINS; dd2 - PMHx: 19:21 diabetes mellitus; Pancreatitis; dd2 - PSHx: 19:21 left hand surgery; dd2 - Immunization history:: Adult Immunizations unknown. - Infectious Disease History:: Denies. - Social history:: Smoking status: Patient denies any tobacco usage or history of. ROS: 19:50 Constitutional: Negative for body aches, chills, fever, poor PO intake, cp 19:50 Eyes: Negative for injury, pain, redness, and discharge, cp 19:50 Cardiovascular: Negative for chest pain, 19:50 Respiratory: Negative for cough, shortness of breath, wheezing, 19:50 Abdomen/GI: Positive for abdominal pain, 19:50 Back: Negative for injury or acute deformity, radiated pain, 19:50 : Negative for urinary symptoms, testicular pain 19:50 MS/extremity: Positive for right leg pain, Negative for injury or acute deformity, 19:50 All other systems are negative, Exam: 19:55 Constitutional: The patient appears in no acute distress, alert, awake, cp non-diaphoretic, non-toxic, well developed, well nourished, uncomfortable, 19:55 Head/Face: Normocephalic, atraumatic. cp 19:55 Eyes: Periorbital structures: appear normal, Conjunctiva: normal, no exudate, no injection, Sclera: no appreciated abnormality, Lids and lashes: appear normal, bilaterally, 19:55 ENT: External ear(s): are unremarkable, Nose: is normal, Mouth: Lips: moist, Oral mucosa: pink and intact, moist, Posterior pharynx: is normal, airway is patent, no erythema, no exudate, 19:55 Chest/axilla: Inspection: normal, 19:55 Cardiovascular: Rate: normal, Rhythm: regular, Edema: is not appreciated, JVD: is not appreciated, 19:55 Respiratory: the patient does not display signs of respiratory distress, Respirations: normal, no use of accessory muscles, no retractions, labored breathing, is not present, Breath sounds: are clear throughout, no decreased breath sounds, no stridor, no wheezing, 19:55 Abdomen/GI: Inspection: abdomen appears normal, Bowel sounds: active, all quadrants, Palpation: soft, in all quadrants, mild abdominal tenderness, in the right lower quadrant, rebound tenderness, is not appreciated, 19:55 Back: CVA tenderness, is absent, 19:55 Musculoskeletal/extremity: Extremities: grossly normal except: noted in the anterior aspect of right upper leg: pain, tenderness, ROM: limited active range of motion due to pain, in the right leg, 19:55 Neuro: Orientation: to person, place \T\ time. Mentation: is normal, Vital Signs: 19:18 BP 164 / 96; Pulse 81; Resp 16; Temp 98.3; Pulse Ox 97% ; Weight 83.91 kg; dd2 20:00 BP 167 / 101; Pulse 77; Resp 18; Temp 98; Pulse Ox 99% on R/A; Pain 4/10; ar6 23:10 BP 154 / 82; Pulse 82; Resp 18; Pulse Ox 100% on R/A; ar6 20:00 Pain Scale: Adult ar6 MDM: 19:24 Patient medically screened. royce 19:37 Patient medically screened. royce 20:00 Differential diagnosis: strain, DVT, incarcerated hernia, uti, kidney stone, cp appendicitis. 22:28 Data reviewed: vital signs, nurses notes, lab test result(s), radiologic studies, CT cp scan, ultrasound, and as a result, I will discharge patient. 22:28 Counseling: I had a detailed discussion with the patient and/or guardian regarding the cp historical points, exam findings, and any diagnostic results supporting the discharge/admit diagnosis, lab results, radiology results, the need for outpatient follow up, a general surgeon. 22:28 Response to treatment: the patient's symptoms have markedly improved after treatment, cp and as a result, I will discharge patient. 02/04 19:57 Order name: CBC with Diff; Complete Time: 21:27 02/04 19:57 Order name: CMP; Complete Time: 21:27 02/04 21:27 Interpretation: Normal except: GFR 82. 02/04 19:57 Order name: Lipase; Complete Time: 21:27 02/04 19:57 Order name: Urinalysis w/ reflexes; Complete Time: 21:27 02/04 19:57 Order name: US Extremity Venous Unilateral Ltd; Complete Time: 21:27 02/04 21:27 Interpretation: Report reviewed. 02/04 19:58 Order name: CT Abd/Pelvis - IV Contrast Only; Complete Time: 21:27 02/04 21:29 Interpretation: Report reviewed. 02/04 19:57 Order name: IV Saline Lock; Complete Time: 20:00 02/04 19:57 Order name: Labs collected and sent; Complete Time: 20:00 02/04 22:27 Order name: Misc. Order: abdominal binder; Complete Time: 22:44 cp Administered Medications: 20:23 Drug: morphine IVP or IV 4 mg IVP once over 4 mins Route: IVP; Infused Over: 4 mins; ar6 Site: left antecubital; 22:45 Follow up: Response: No adverse reaction; Pain is decreased ar6 20:23 Drug: fentaNYL (PF) IVP 25 mcg IVP once Route: IVP; Site: left antecubital; ar6 22:45 Follow up: Response: No adverse reaction; Pain is decreased ar6 20:23 Drug: NS 0.9% IV 500 ml IV at 500 ml/hr continuous Route: IV; Rate: 500 ml/hr; Site: ar6 left antecubital; 22:44 Follow up: IV Status: Completed infusion; IV Intake: 500ml ar6 Disposition: 02/05 15:59 Co-signature as Attending Physician, oJse Acosta MD I agree with the assessment and royce plan of care. Disposition Summary: 02/05/24 22:28 Discharge Ordered Notes: Location: Home cp Problem: new cp Symptoms: have improved cp Condition: Stable cp Diagnosis - Unilateral inguinal hernia, without obstruction or gangrene, not specified as cp recurrent - Lower abdominal pain, unspecified cp - Pain in right leg cp - Other cholelithiasis without obstruction cp Followup: cp - With: Shahriar Proctor MD - When: 2 - 3 days - Reason: inguinal hernia Discharge Instructions: - Discharge Summary Sheet cp - Abdominal Pain, Adult cp - Musculoskeletal Pain cp - Cholelithiasis cp - Inguinal Hernia, Adult cp - Laparoscopic Inguinal Hernia Repair, Adult cp Forms: - Medication Reconciliation Form cp - Antibiotic Education cp - Prescription Opioid Use cp - Patient Portal Instructions cp - Leadership Thank You Letter cp Prescriptions: - Ibuprofen 800 mg Oral tablet - take 1 tablet ORAL route every 12 hours As needed take with food; 30 tablet; cp Refills: 0, Product Selection Permitted - methocarbamol 750 mg Oral tablet - take 1 tablet ORAL route 3 times per day; 30 tablet; Refills: 0, Product cp Selection Permitted Signatures: Dispatcher [employer] Jose Landrum MD MD cha Page, Corey, PA PA cp Sharmaine Garsia RN RN ar6 NEAL MARTINEZ RN RN dd2 Corrections: (The following items were deleted from the chart) 02/04 20:15 20:15 Extremity Venous Uni Ltd+US.RAD.BRZ ordered. [facility] 02/05 12:54 12:53 Constitutional: Negative for body aches, chills, fever, poor PO intake, cp cp
[2024-02-05 23:26] VITALS: TEMP 98
[2024-02-05 23:36] VITALS: BP 154/82; O2SAT 100
== END 2024-02-05 23:10 | disposition home or self-care (01) ==
LOC: ER 18:52
DX: K40.90 Unilateral inguinal hernia, without obstruction or gangrene, not specified as recurrent (principal); K80.80 Other cholelithiasis without obstruction; M79.604 Pain in right leg; E11.9 Type 2 diabetes mellitus without complications
CPT/HCPCS: 96361; 85025; 81001; 36415; 83690; 80053; 74177; 93971; 96375; 96374; 99284; J3010; J7040

== ENCOUNTER 2024-06-22 15:02 | Emergency (ER) | payer OTHER ==
[2024-06-22] MEDS ORDERED: MORPHINE 4 MG/ML SYR ONE (15:57)
[2024-06-22] MEDS ORDERED: ONDANSETRON 4 MG/2 ML VIAL ONE (15:58)
[2024-06-22 16:07] LABS: Absolute Basophils 0.1 K/uL (0-0.5); Absolute Eosinophils 0.2 K/uL (0-0.5); Absolute Lymphocytes (CBC) 1.9 K/uL (0.7-4.9); Absolute Monocytes 0.9 K/uL (0.1-1.3); Basophils % 0.9 % (0-1.3); Eosinophils % 2.7 % (0-4.4); Hematocrit 43.3 % (39.6-49.0); Hemoglobin 14.9 g/dL (13.6-17.9); Lymphocytes % 21.2 % (15.3-44.8); MCH 30.5 pg (27.0-35.0); MCHC 34.4 g/dL (32.0-36.0); MCV 88.7 fL (80-100); MPV 8.3 fL (7.6-11.3); Monocytes % 9.5 % (3.3-12.3); Neutrophils % 65.7 % (41.7-73.7); Platelets 199 thou/uL (152-406); RBC Red Blood Cell Count 4.88 M/uL (4.33-5.43); Red Cell Distribution Width 13.2 % (12.1-15.2)
[2024-06-22 16:17] LABS: Specific Gravity 1.026 (1.005-1.030); Sqamous Epithelial <5 /HPF (None Seen); Urine Bacteria None Seen /HPF (<20); Urine Bilirubin NEGATIVE (Negative); Urine Blood Negative (Negative); Urine Clarity Clear (Clear); Urine Color Yellow (Yellow); Urine Culture Reflex Order NOT NEEDED; Urine Glucose NEGATIVE (Negative); Urine Ketones NEGATIVE (Negative); Urine Microscopic Reflex YN ORDER UMIC; Urine Mucus Slight /HPF (None Seen); Urine Nitrite NEGATIVE (Negative); Urine Protein TRACE (Negative); Urine RBC <5 /HPF (None Seen); Urine Urobilinogen Normal (Normal); Urine WBC <5 /HPF (<5)
[2024-06-22 16:24] LABS: Albumin 3.2 g/dL (3.4-5.0); Albumin/Globulin Ratio 0.8 (1.1-1.8); Anion Gap 6.8 mEq/L (5.0-15.0); Bilirubin Total 0.5 mg/dL (0.2-1.0); Globulin 4.1 g/dL (2.3-3.5); Potassium 3.8 mEq/L (3.5-5.1); Protein, Total 7.3 g/dL (6.4-8.2)
--- NOTE | 2024-06-22 17:17 | RAD REPORT ---
EXAMINATION: CT Abdomen Pelvis W Contrast CLINICAL INDICATION: Male, 79 years old. ABD PAIN TECHNIQUE: CT abdomen and pelvis was performed, after the administration of IV contrast, [facility]. Axial, sagittal and coronal reconstructions were obtained. One or more of the following dose reduction techniques were used: Automated exposure control, adjustment of the mA and k V according to patient size, and iterative reconstruction. Unless otherwise specified, incidental findings do not require dedicated imaging follow-up. COMPARISON: 02/05/2024 FINDINGS: LOWER CHEST: The visualized lung bases are clear. LIVER: Normal in size and contour. No focal lesion. BILIARY SYSTEM: Cholelithiasis with numerous stones within a fold at the neck, stable in appearance. No pericholecystic fluid or fat stranding. SPLEEN: Normal size. No focal lesion. PANCREAS: No mass, ductal dilation, or cinthia-pancreatic fluid. ADRENALS: Normal; no mass. KIDNEYS: Normal size and contour. No hydronephrosis. 4 mm left interpolar nonobstructing calculus. Si mple appearing 2.2 cm left cortical cyst just superior to this appears stable. Lower pole exophytic 2.2 cm cyst appears stable. URINARY BLADDER: Unremarkable. GASTROINTESTINAL TRACT: No evidence of free air, significant intra-abdominal free fluid, bowel obstru ction or abscess. Mild distal colonic diverticulosis without evidence of acute diverticulitis. APPENDIX: Normal appendix. LYMPH NODES: No lymphadenopathy. MUSCULOSKELETAL: No acute or suspicious osseous abnormality. ADDITIONAL FINDINGS: Large right inguinal hernia containing long segments of nondistended distal smal l bowel, and a moderate-sized fat-containing left inguinal hernia. These are stable in appearance.. IMPRESSION: Stable 4 mm nonobstructing left renal calculus. Stable bilateral inguinal hernias larger on the right, containing nondistended small bowel. No other acute or concerning abnormalities seen in the abdomen or pelvis. Other stable incidental fin dings as above.
--- NOTE | 2024-06-22 17:53 | EDPHYS ---
Physician Documentation [facility] Name: Marek Paul III Age: 79 yrs Sex: Male : 1945 Arrival Date: 06/22/2024 Time: 15:02 Bed 13 Private MD: ED Physician Tera Stoll HPI: 06/22 15:44 This 79 yrs old Male presents to ER via Ambulatory with complaints of Abdominal Pain. rt 15:44 Patient presents to the ED with 4 days of right lower quadrant pain, intermittent. rt Reports mild diarrhea but denies nausea, vomiting. Denies other acute complaints at this time, symptoms are moderate in severity, no other aggravating or alleviating factors.. Historical: - Allergies: 15:46 PENICILLINS; me1 - PMHx: 15:46 diabetes mellitus; Pancreatitis; me1 - PSHx: 15:46 left hand surgery; me1 - Immunization history:: Adult Immunizations unknown. - Infectious Disease History:: Denies. - Social history:: Smoking status: Patient denies any tobacco usage or history of. - Family history:: not pertinent. ROS: 15:44 Constitutional: Negative for fever, chills, and weight loss, Cardiovascular: Negative rt for chest pain, palpitations, and edema, Respiratory: Negative for shortness of breath, cough, wheezing, and pleuritic chest pain, MS/Extremity: Negative for injury and deformity, Skin: Negative for injury, rash, and discoloration, Neuro: Negative for headache, weakness, numbness, tingling, and seizure, 15:44 Abdomen/GI: Positive for abdominal pain, Negative for nausea and vomiting, Exam: 15:44 Constitutional: This is a well developed, well nourished patient who is awake, alert, rt and in no acute distress. Head/Face: Normocephalic, atraumatic. Neck: Trachea midline, no thyromegaly or masses palpated, and no cervical lymphadenopathy. Supple, full range of motion without nuchal rigidity, or vertebral point tenderness. No Meningismus. Chest/axilla: Normal chest wall appearance and motion. Nontender with no deformity. No lesions are appreciated. Cardiovascular: Regular rate and rhythm with a normal S1 and S2. No gallops, murmurs, or rubs. Normal PMI, no JVD. No pulse deficits. Respiratory: Lungs have equal breath sounds bilaterally, clear to auscultation and percussion. No rales, rhonchi or wheezes noted. No increased work of breathing, no retractions or nasal flaring. Skin: Warm, dry with normal turgor. Normal color with no rashes, no lesions, and no evidence of cellulitis. MS/ Extremity: Pulses equal, no cyanosis. Neurovascular intact. Full, normal range of motion. Neuro: Awake and alert, GCS 15, oriented to person, place, time, and situation. Cranial nerves II-XII grossly intact. Motor strength 5/5 in all extremities. Sensory grossly intact. Cerebellar exam normal. Normal gait. 15:44 Abdomen/GI: Mild tenderness to the right lower quadrant without rebound, guarding, distention, Vital Signs: 15:43 BP 149 / 88; Pulse 83; Resp 17; Temp 98.2; Pulse Ox 96% ; Weight 80.74 kg; Height 5 ft. me1 7 in. ; Pain 7/10; 16:00 BP 155 / 92; Pulse 83; Resp 16; Pulse Ox 96% on R/A; me1 16:29 Pain 3/10; me1 17:00 BP 102 / 87; Pulse 81; Resp 15; Pulse Ox 96% on R/A; me1 18:05 BP 151 / 92; Pulse 69; Resp 15; Temp 98.5; Pulse Ox 94% ; me1 15:43 Body Mass Index 27.88 (80.74 kg, 170.18 cm) me1 15:43 Pain Scale: Adult me1 16:29 Pain Scale: Adult me1 MDM: 15:30 Medical Screening Exam initiated rt 17:58 Differential Diagnosis Hernia, appendicitis, bowel obstruction. Data reviewed: vital rt signs, nurses notes, lab test result(s), radiologic studies. I considered the following discharge prescriptions or medication management in the emergency department Medications were administered in the Emergency Department. See MAR. Independent interpretation of the following test(s) in the Emergency Department CT Scan: My interpretation is Right inguinal hernia seen on my interpretation of CT scan images. Care significantly affected by the following chronic conditions: Diabetes. Counseling: I had a detailed discussion with the patient and/or guardian regarding the historical points, exam findings, and any diagnostic results supporting the discharge/admit diagnosis, lab results, radiology results, the need for outpatient follow up, to return to the emergency department if symptoms worsen or persist or if there are any questions or concerns that arise at home. ED course: Patient reassessed, he does have a palpable right inguinal hernia that is easily reducible. This did improve the patient's symptoms. He is stable for outpatient care, return precautions discussed.. 06/22 15:42 Order name: CBC with Diff; Complete Time: 16:27 rt 06/22 15:42 Order name: CMP; Complete Time: 16:27 rt 06/22 15:42 Order name: Lipase; Complete Time: 16:27 rt 06/22 15:42 Order name: Urinalysis w/ reflexes; Complete Time: 16:27 rt 06/22 15:42 Order name: CT Abd/Pelvis - IV Contrast Only; Complete Time: 17:33 rt 06/22 15:42 Order name: IV Saline Lock; Complete Time: 16:00 rt 06/22 15:42 Order name: Labs collected and sent; Complete Time: 16:00 rt Administered Medications: 16:08 Drug: Ondansetron IVP 4 mg IVP once; over 2 minutes Route: IVP; Site: right antecubital;me1 16:29 Follow up: Response: No adverse reaction; Nausea is decreased me1 16:09 Drug: morphine IVP or IV 4 mg IVP once over 4 mins Route: IVP; Infused Over: 4 mins; me1 Site: right antecubital; 16:29 Follow up: Pain 3/10 Adult; Response: No adverse reaction; Pain is decreased me1 Disposition Summary: 06/22/24 17:53 Discharge Ordered Notes: Location: Home rt Problem: new rt Symptoms: have improved rt Condition: Stable rt Diagnosis - Right inguinal hernia rt Followup: rt - With: Ricky Mejia MD - When: 2 - 3 days - Reason: Discharge Instructions: - Discharge Summary Sheet rt - Inguinal Hernia, Adult rt Forms: - Medication Reconciliation Form rt - Antibiotic Education rt - Prescription Opioid Use rt - Patient Portal Instructions rt - Leadership Thank You Letter rt Prescriptions: - Tramadol 50 mg Oral Tablet - take 1 tablet ORAL route every 8 hours as needed; 12 tablet; Refills: 0, rt Product Selection Permitted Signatures: Dispatcher [employer] Tera Lni MD MD rt Sofie Stanley RN RN me1 Corrections: (The following items were deleted from the chart) 15:42 15:42 Abdomen Pelvis W Con+CT.RAD.BRZ ordered. EDMS EDMS
--- NOTE | 2024-06-22 17:53 | ER ---
Nurse's Notes [facility] Name: Marek Paul III Age: 79 yrs Sex: Male : 1945 Arrival Date: 06/22/2024 Time: 15:02 Bed 13 Private MD: Diagnosis: Right inguinal hernia Presentation: 06/22 15:43 Chief complaint: Patient states: pain to RLQ that radiates to his back at times with me1 some diarrhea since Thursday. Pain /10. Denies fever. Coronavirus screen: Vaccine status: Patient reports being unvaccinated. Ebola Screen: No symptoms or risks identified at this time. Initial Sepsis Screen: Does the patient meet any 2 criteria? No. Patient's initial sepsis screen is negative. Does the patient have a suspected source of infection?. Initial Sepsis Screen: Does the patient have a suspected source of infection? No. Patient's initial sepsis screen is negative. Risk Assessment: Do you want to hurt yourself or someone else? Patient reports no desire to harm self or others. Onset of symptoms was June 19, 2024. 15:43 Method Of Arrival: Ambulatory [facility] [place] 15:43 Acuity: SAPNA 3 me1 Triage Assessment: 15:46 General: Appears uncomfortable, well developed, well nourished, Behavior is calm, me1 cooperative, appropriate for age. Pain: Complains of pain in right lower quadrant Pain radiates to back Pain currently is 7 out of 10 on a pain scale. Quality of pain is described as sharp, Pain began 2-3 days ago. Is continuous. EENT: No signs and/or symptoms were reported regarding the EENT system. Neuro: Level of Consciousness is awake, alert, obeys commands, Oriented to person, place, time, situation, Appropriate for age. Cardiovascular: Patient's skin is warm and dry. Respiratory: Airway is patent Respiratory effort is even, unlabored, Respiratory pattern is regular, symmetrical. GI: Abdomen is non-distended, Reports lower abdominal pain, diarrhea. : No signs and/or symptoms were reported regarding the genitourinary system. Derm: Skin is intact, is healthy with good turgor, Skin is pink, warm \T\ dry. Musculoskeletal: No signs and/or symptoms reported regarding the musculoskeletal system. Historical: - Allergies: 15:46 PENICILLINS; me1 - PMHx: 15:46 diabetes mellitus; Pancreatitis; me1 - PSHx: 15:46 left hand surgery; me1 - Immunization history:: Adult Immunizations unknown. - Infectious Disease History:: Denies. - Social history:: Smoking status: Patient denies any tobacco usage or history of. - Family history:: not pertinent. Screenin:[facility] ED Fall Risk Assessment (Adult) History of falling in the last 3 months, me1 including since admission No falls in past 3 months (0 pts) Confusion or Disorientation No (0 pts) Intoxicated or Sedated No (0 pts) Impaired Gait No (0 pts) Mobility Assist Device Used No (0 pt) Altered Elimination No (0 pt) Score/Fall Risk Level 0 - 2 = Low Risk Maintained a safe environment, Provided non-skid footwear, Hourly rounding (assess needs \T\ fall precautionary measures) done. Abuse screen: Denies threats or abuse. Nutritional screening: No deficits noted. Tuberculosis screening: No symptoms or risk factors identified. Assessment: 15:48 General: See triage assessment. me1 18:05 GI: Abdomen is tender to palpation in right lower quadrant. me1 18:06 GI: Bowel sounds present X 4 quads. me1 Vital Signs: 15:43 BP 149 / 88; Pulse 83; Resp 17; Temp 98.2; Pulse Ox 96% ; Weight 80.74 kg; Height 5 ft. me1 7 in. ; Pain 7/10; 16:00 BP 155 / 92; Pulse 83; Resp 16; Pulse Ox 96% on R/A; me1 16:29 Pain 3/10; me1 17:00 BP 102 / 87; Pulse 81; Resp 15; Pulse Ox 96% on R/A; me1 18:05 BP 151 / 92; Pulse 69; Resp 15; Temp 98.5; Pulse Ox 94% ; me1 15:43 Body Mass Index 27.88 (80.74 kg, 170.18 cm) me1 15:43 Pain Scale: Adult me1 16:29 Pain Scale: Adult ny1 ED Course: 15:06 Patient arrived in ED. al6 15:11 Tera Stoll MD is Attending Physician. rt 15:43 Sofie Stanley, FARRUKH is Primary Nurse. me1 15:44 Triage completed. me1 15:46 Arm band placed on Patient placed in an exam room. me1 15:48 Patient has correct armband on for positive identification. Bed in low position. Call me1 light in reach. Side rails up X2. Provided Education on: POC. Verbalized understanding.. Client placed on continuous cardiac and pulse oximetry monitoring. NIBP monitoring applied. Pulse ox on. NIBP on. 15:48 No provider procedures requiring assistance completed. me1 16:00 CBC with Diff Sent. me1 16:00 CMP Sent. me1 16:00 Lipase Sent. me1 16:00 Initial lab(s) drawn, by me, sent to lab. Inserted saline lock: 22 gauge in right ny1 antecubital area, using aseptic technique. 16:08 Urine collected: clean catch specimen, clear, brown colored. me1 16:08 Urinalysis w/ reflexes Sent. me1 16:57 CT Abd/Pelvis - IV Contrast Only In Process Unspecified. EDMS 17:53 Ricky Mejia MD is Referral Physician. rt 18:11 IV discontinued, intact, bleeding controlled, No redness/swelling at site. Pressure me1 dressing applied. Administered Medications: 16:08 Drug: Ondansetron IVP 4 mg IVP once; over 2 minutes Route: IVP; Site: right antecubital;me1 16:29 Follow up: Response: No adverse reaction; Nausea is decreased me1 16:09 Drug: morphine IVP or IV 4 mg IVP once over 4 mins Route: IVP; Infused Over: 4 mins; ny1 Site: right antecubital; 16:29 Follow up: Pain 3/10 Adult; Response: No adverse reaction; Pain is decreased me1 Medication: 15:48 VIS not applicable for this client. me1 Outcome: 17:53 Discharge ordered by . rt 18:11 Discharged to home ambulatory, me1 18:11 Condition: stable 18:11 Discharge instructions given to patient, Instructed on discharge instructions, follow up and referral plans. medication usage, Demonstrated understanding of instructions, follow-up care, medications, Prescriptions given X 1, 18:11 Patient left the ED. me1 Signatures: Dispatcher [employer] [facility] Tera Stoll MD MD rt Sofie Stanley RN RN me1 Bela Meyer6
[2024-06-23 04:03] VITALS: BP 151/92; TEMP 98.5; O2SAT 94
== END 2024-06-22 18:11 | disposition home or self-care (01) ==
LOC: ER 15:02
DX: K40.90 Unilateral inguinal hernia, without obstruction or gangrene, not specified as recurrent (principal)
CPT/HCPCS: 85025; 81001; 36415; 83690; 80053; 74177; Q9967; J2405

== ENCOUNTER 2025-03-12 17:09 | Emergency (ER) | payer OTHER ==
[2025-03-12] MEDS ORDERED: NA CHLORIDE 0.9% 1,000 ML ONE (18:08)
[2025-03-12 18:22] LABS: PT Prothrombin Time 12.8 SECONDS (10-13.0); Protime INR 1.14
[2025-03-12 18:23] LABS: Absolute Lymphocytes (CBC) 2.2 K/uL (0.7-4.9); Hematocrit 44.0 % (39.6-49.0); Hemoglobin 14.6 g/dL (13.6-17.9); MCH 29.5 pg (27.0-35.0); MCHC 33.1 g/dL (32.0-36.0); MCV 89.2 fL (80-100); MPV 8.9 fL (7.6-11.3); Nucleated RBC Absolute Count 0.0 (0-0); Nucleated Red Blood Cells % 0.0 % (0-0); RBC Red Blood Cell Count 4.93 M/uL (4.33-5.43); White Blood Count 8.70 thou/uL (4.3-10.9)
[2025-03-12 18:37] LABS: ALT/SGPT 71.0 U/L (16-61); AST/SGOT 42.0 U/L (15-37); Albumin 3.3 g/dL (3.4-5.0); Albumin/Globulin Ratio 0.8 (1.1-1.8); Alkaline Phosphatase 79.0 U/L (45-117); Anion Gap 7.0 mEq/L (5.0-15.0); BUN Blood Urea Nitrogen 15.0 mg/dL (7-18); Bilirubin Indirect, Calculated 0.3 mg/dL (0.2-0.8); Globulin 4.2 g/dL (2.3-3.5); Glucose Level 120.0 mg/dL (74-106); Lipase 34.0 U/L (13-75); Magnesium 2.0 mg/dL (1.6-2.4); NT PRO-BNP 50.0 pg/mL (<450); Potassium 4.0 mEq/L (3.5-5.1); Troponin High Sensitivity 10.0 pg/mL (<58.9)
--- NOTE | 2025-03-12 18:50 | RAD REPORT ---
EXAM: CT CHEST, ABDOMEN AND PELVIS WITHOUT CONTRAST CLINICAL INDICATION: Male, 80 years old. [facility] MAIN Cough;Pain Bed Name: 15 TECHNIQUE: CT chest, abdomen and pelvis was performed, without IV contrast, as per department protoco l. Axial, sagittal and coronal reconstructions were obtained. One or more of the following dose reduction techniques were used: Automated exposure control, adjustment of the mA and/or kV according to the patient size, and/or iterative reconstruction. Unless otherwise specified, incidental findings do not require dedicated imaging follow-up. COMPARISON: CT chest 01/06/2021. CT abdomen pelvis 06/22/2024 FINDINGS: The lack of intravenous contrast limits the sensitivity of this exam for evaluation of solid visceral organs, vascular structures, and retroperitoneum. Chest: LOWER NECK/CHEST WALL: Visualized thyroid gland and soft tissues are normal. LUNGS AND AIRWAYS: Airways are clear. No evidence of airspace or interstitial process. No nodules. PLEURA: No pleural effusion. No pneumothorax. Hemidiaphragms are normally positioned. MEDIASTINUM AND LYMPH NODES: No mediastinal mass or fluid collection. Normal size mediastinal, hilar, and axillary lymph nodes. THORACIC AORTA: Normal caliber and configuration. PULMONARY ARTERIES: Normal caliber. HEART: Unremarkable. Abdomen/Pelvis LIVER: Normal in size and contour. No focal lesion. GALLBLADDER/BILE DUCTS: Dependent radiopaque calculi again seen near the neck. PANCREAS: No mass, ductal dilation, or cinthia-pancreatic fluid. SPLEEN: Normal size. No focal lesion. ADRENALS: Normal; no mass. KIDNEYS AND URETERS: Normal size and contour. Nonobstructing 3 mm left interpolar calculus, stable. P arapelvic near fluid density 2 cm left renal cystic lesion also stable. No hydronephrosis. GASTROINTESTINAL TRACT: Stomach is non-dilated. Small bowel has normal course and caliber. No colonic wall thickening or pericolonic inflammatory changes. Distal colonic diverticulosis without evidence of acute diverticulitis. PERITONEUM: No free fluid. LYMPH NODES: No lymphadenopathy. ABDOMINAL AORTA AND OTHER VESSELS: Normal caliber aorta and IVC. URINARY BLADDER: Normal contour. REPRODUCTIVE ORGANS: No pathologic process. MUSCULOSKELETAL: No acute or suspicious osseous abnormality. ADDITIONAL FINDINGS: Large right inguinal hernia containing nondistended loops of small bowel, stable . Moderate-sized left hernia containing fat, also stable. IMPRESSION: No acute abnormalities in the chest, abdomen, or pelvis. Stable inguinal hernias, larger on the right, containing nondistended small bowel. Other stable findi ngs as above including cholelithiasis, nonobstructing left renal calculus, and colonic diverticulosis.
[2025-03-12 18:51] LABS: Urine Microscopic Reflex YN NO UMIC
--- NOTE | 2025-03-12 18:52 | RAD REPORT ---
EXAMINATION: ONE VIEW CHEST XR CLINICAL INDICATION: Male, 80 years old.,ABDOMINAL DISTENTION TECHNIQUE: Frontal chest projection is submitted. Examination is limited by patient positioning and t echnique. COMPARISON: 01/23/2023 FINDINGS: The lungs are well inflated and clear. No pneumothorax or sizable effusion. The heart is normal in s ize. Mediastinal contours are unremarkable. IMPRESSION: No acute intrathoracic abnormalities.
--- NOTE | 2025-03-12 18:55 | EDPHYS ---
Physician Documentation [facility] Name: Marek Paul III Age: 80 yrs Sex: Male : 1945 Arrival Date: 03/12/2025 Time: 17:09 Bed [id number] Private MD: ED Physician Jose Acosta HPI: 03/12 18:47 This 80 yrs old Male presents to ER via Ambulatory with complaints of royce Lethargic, General Weakness. 18:47 WEAK, TIRED. Onset: The symptoms/episode began/occurred 3 day(s) ago. Severity of royce symptoms: At their worst the symptoms were mild in the emergency department the symptoms are unchanged. The patient has experienced similar episodes in the past, multiple times. Historical: - Allergies: 17:45 PENICILLINS; me1 - PMHx: 17:45 diabetes mellitus; Pancreatitis; me1 - PSHx: 17:45 left hand surgery; me1 - Immunization history:: Adult Immunizations up to date. - Infectious Disease History:: Denies. - Social history:: Smoking status: Patient denies any tobacco usage or history of. - Family history:: not pertinent. ROS: 18:47 Constitutional: Negative for fever, chills, and weight loss, Eyes: Negative for injury, royce pain, redness, and discharge, ENT: Negative for injury, pain, and discharge, Neck: Negative for injury, pain, and swelling, Cardiovascular: Negative for chest pain, palpitations, and edema, Respiratory: Negative for shortness of breath, cough, wheezing, and pleuritic chest pain, Abdomen/GI: Negative for abdominal pain, nausea, vomiting, diarrhea, and constipation, Back: Negative for injury and pain, : Negative for injury, bleeding, discharge, and swelling, MS/Extremity: Negative for injury and deformity, Skin: Negative for injury, rash, and discoloration, Psych: Negative for depression, anxiety, suicide ideation, homicidal ideation, and hallucinations, Allergy/Immunology: Negative for hives, rash, and allergies, Endocrine: Negative for neck swelling, polydipsia, polyuria, polyphagia, and marked weight changes, Hematologic/Lymphatic: Negative for swollen nodes, abnormal bleeding, and unusual bruising, 18:47 Neuro: Positive for weakness, Exam: 18:47 Constitutional: This is a well developed, well nourished patient who is awake, alert, royce and in no acute distress. Head/Face: Normocephalic, atraumatic. Eyes: Pupils equal round and reactive to light, extra-ocular motions intact. Lids and lashes normal. Conjunctiva and sclera are non-icteric and not injected. Cornea within normal limits. Periorbital areas with no swelling, redness, or edema. ENT: Nares patent. No nasal discharge, no septal abnormalities noted. Tympanic membranes are normal and external auditory canals are clear. Oropharynx with no redness, swelling, or masses, exudates, or evidence of obstruction, uvula midline. Mucous membranes moist. Neck: Trachea midline, no thyromegaly or masses palpated, and no cervical lymphadenopathy. Supple, full range of motion without nuchal rigidity, or vertebral point tenderness. No Meningismus. Chest/axilla: Normal chest wall appearance and motion. Nontender with no deformity. No lesions are appreciated. Cardiovascular: Regular rate and rhythm with a normal S1 and S2. No gallops, murmurs, or rubs. Normal PMI, no JVD. No pulse deficits. Respiratory: Lungs have equal breath sounds bilaterally, clear to auscultation and percussion. No rales, rhonchi or wheezes noted. No increased work of breathing, no retractions or nasal flaring. Abdomen/GI: Soft, non-tender, with normal bowel sounds. No distension or tympany. No guarding or rebound. No evidence of tenderness throughout. Back: No spinal tenderness. No costovertebral tenderness. Full range of motion. Skin: Warm, dry with normal turgor. Normal color with no rashes, no lesions, and no evidence of cellulitis. MS/ Extremity: Pulses equal, no cyanosis. Neurovascular intact. Full, normal range of motion., bilateral aka Neuro: Awake and alert, GCS 15, oriented to person, place, time, and situation. Cranial nerves II-XII grossly intact. Motor strength 5/5 in all extremities. Sensory grossly intact. Cerebellar exam normal. Normal gait. Psych: Awake, alert, with orientation to person, place and time. Behavior, mood, and affect are within normal limits. 18:47 ECG was reviewed by the Attending Physician. 18:55 Musculoskeletal/extremity: ROM: intact in all extremities, full active range of motion, royce full passive range of motion, Circulation is intact in all extremities. Sensation intact. Compartment Syndrome exam of affected extremity: is normal. DVT Exam: No signs of deep vein thrombosis. no pain, no swelling, no tenderness, negative Homans' sign noted on exam, no appreciated bluish discoloration, no erythema, no increased warmth, Vital Signs: 17:42 BP 177 / 89; Pulse 88; Resp 17; Temp 98.3; Pulse Ox 96% ; Weight 86.64 kg; Height 5 ft. me1 7 in. ; Pain 0/10; 19:01 BP 158 / 92; Pulse 83; Resp 17; Pulse Ox 97% on R/A; ap3 20:29 BP 166 / 90; Pulse 85; Resp 18; Pulse Ox 98% on R/A; af3 21:00 BP 183 / 103; Pulse 78; Resp 16; Pulse Ox 98% on R/A; af3 17:42 Body Mass Index 29.91 (86.64 kg, 170.18 cm) me1 17:42 Pain Scale: Adult me1 21:00 Pt asymptomatic from bp af3 MDM: 17:54 Medical Screening Exam initiated royce 18:49 Differential Diagnosis altered mental status, sepsis, flu. Data reviewed: vital signs, [facility] nurses notes, lab test result(s), EKG, radiologic studies, CT scan, plain films. Consideration of Admission/Observation Escalation of care including admission/observation considered. I considered the following discharge prescriptions or medication management in the emergency department Medications were administered in the Emergency Department. See MAR. Independent interpretation of the following test(s) in the Emergency Department EKG: See my EKG interpretation above. Test considered but Not performed: Ultrasound NO 2 D ECHO. Historians other than the Patient: PT WELL INFORMED. Care significantly affected by the following chronic conditions: Diabetes, Obesity. Counseling: I had a detailed discussion with the patient and/or guardian regarding the historical points, exam findings, and any diagnostic results supporting the discharge/admit diagnosis, lab results, radiology results, the need for outpatient follow up, for definitive care, 03/12 17:55 Order name: Basic Metabolic Panel; Complete Time: 18:47 [facility] 03/12 17:55 Order name: CBC with Diff; Complete Time: 18:47 [facility] 03/12 17:55 Order name: LFT's; Complete Time: 18:47 [facility] 03/12 17:55 Order name: Magnesium; Complete Time: 18:47 [facility] 03/12 17:55 Order name: NT PRO-BNP; Complete Time: 18:47 [facility] 03/12 17:55 Order name: PT-INR; Complete Time: 18:47 [facility] 03/12 17:55 Order name: Troponin HS; Complete Time: 18:47 [facility] 03/12 17:55 Order name: Lipase; Complete Time: 18:47 [facility] 03/12 17:55 Order name: UA Rfx Maury Cult if indicated; Complete Time: 18:53 [facility] 03/12 18:53 Order name: TSH 03/12 17:55 Order name: XRAY Chest (1 view); Complete Time: 18:53 [facility] 03/12 17:55 Order name: CT Chest Abdomen Pelvis W/O Contrast; Complete Time: 18:53 [facility] 03/12 17:55 Order name: Cardiac monitoring; Complete Time: 18:26 [facility] 03/12 17:55 Order name: EKG - Nurse/Tech; Complete Time: 18:26 [facility] 03/12 17:55 Order name: IV Saline Lock; Complete Time: 18:15 [facility] 03/12 17:55 Order name: Labs collected and sent; Complete Time: 18:15 [facility] 03/12 17:55 Order name: O2 Per Protocol; Complete Time: 18:15 [facility] 03/12 17:55 Order name: O2 Sat Monitoring; Complete Time: 18:15 [facility] EC:47 Rate is 84 beats/min. Rhythm is regular. QRS Draper is Normal. MA interval is normal. QRS royce interval is normal. QT interval is normal. No Q waves. T waves are Normal. No ST changes noted. Clinical impression: Normal ECG and No evidence of ischemia. Interpreted by me. Reviewed by me. Administered Medications: 18:46 Drug: NS 0.9% IV 1000 ml IV at 1 bolus Per protocol; to be given as a bolus over 60 ap3 minutes Route: IV; Rate: 1 bolus; Site: right antecubital; 20:23 Follow up: Response: No adverse reaction; IV Status: Completed infusion; IV Intake: af3 1000ml 20:01 Drug: Lisinopril PO 5 mg PO once Route: PO; af3 20:23 Follow up: Response: No adverse reaction af3 20:07 Drug: Aspirin PO Chewable Tablet 81 mg PO once Route: PO; af3 20:23 Follow up: Response: No adverse reaction af3 Disposition Summary: 03/12/25 18:54 Discharge Ordered Notes: Location: Home royce Problem: new royce Symptoms: have improved royce Condition: Stable royce Diagnosis - Weakness royce - Essential (primary) hypertension royce Followup: royce - With: Private Physician - When: 2 - 3 days - Reason: Recheck today's complaints, Continuance of care, Re-evaluation by your physician Followup: royce - With: Tobi Kemp MD - When: 2 - 3 days - Reason: Recheck today's complaints, Re-evaluation by your physician Discharge Instructions: - Discharge Summary Sheet royce - Hypertension, Adult royce - Weakness royce - Fatigue royce - Hypertension, Adult, [id number] royce - How to Take Your Blood Pressure, [id number] royce - Weakness, [id number] royce - Aspirin and Your Heart royce - Managing Your Hypertension royce - Deconditioning royce Forms: - Medication Reconciliation Form royce - Antibiotic Education royce - Prescription Opioid Use royce - Patient Portal Instructions royce - Leadership Thank You Letter [facility] Prescriptions: - Lisinopril 5 mg Oral Tablet - take 1 tablet ORAL route once daily; 20 tablet; Refills: 0, Product Selection royce Permitted Signatures: Dispatcher [employer] EDJose Mo MD MD cha Prokisch, Amanda RN RN ap3 Sofie Stanley RN RN me1 Karla Stewart RN RN af3 Corrections: (The following items were deleted from the chart) 17:56 17:56 Chest Single View+RAD.RAD.BRZ ordered. EDMS EDMS 17:56 17:56 Chest Abdomen Pelvis Wo Con+CT.RAD.BRZ ordered. EDMS EDMS
--- NOTE | 2025-03-12 18:55 | ER ---
Nurse's Notes [facility] – [place], [place] Name: Marek Paul III Age: 80 yrs Sex: Male : 1945 Arrival Date: 03/12/2025 Time: 17:09 Bed [id number] Private MD: Diagnosis: Weakness;Essential (primary) hypertension Presentation: 03/12 17:42 Chief complaint: Patient states: c/o generalized weakness for the past 3 months that is me1 worsening. RLQ pain for "along time but hurts more and more". Coronavirus screen: At this time, the client does not indicate any symptoms associated with coronavirus-19. Ebola Screen: No symptoms or risks identified at this time. Initial Sepsis Screen: Does the patient meet any 2 criteria? No. Patient's initial sepsis screen is negative. Does the patient have a suspected source of infection? No. Patient's initial sepsis screen is negative. Risk Assessment: Do you want to hurt yourself or someone else? Patient reports no desire to harm self or others. Onset of symptoms is unknown. 17:42 Method Of Arrival: Ambulatory me1 17:42 Acuity: SAPNA 3 me1 Historical: - Allergies: 17:45 PENICILLINS; me1 - PMHx: 17:45 diabetes mellitus; Pancreatitis; me1 - PSHx: 17:45 left hand surgery; me1 - Immunization history:: Adult Immunizations up to date. - Infectious Disease History:: Denies. - Social history:: Smoking status: Patient denies any tobacco usage or history of. - Family history:: not pertinent. Screenin:15 [facility] ED Fall Risk Assessment (Adult) History of falling in the last 3 months, ap3 including since admission No falls in past 3 months (0 pts) Confusion or Disorientation No (0 pts) Intoxicated or Sedated No (0 pts) Impaired Gait No (0 pts) Mobility Assist Device Used Yes (1 pt) Altered Elimination No (0 pt) Score/Fall Risk Level 0 - 2 = Low Risk Oriented to surroundings, Maintained a safe environment, Educated pt \\T\\ family on fall prevention, incl call for assistance when getting out of bed, Assessed \\T\\ reinforced patient's understanding of fall precautions, Hourly rounding (assess needs \\T\\ fall precautionary measures) done, Used ambulatory aids as needed (educated on \\T\\ assisted with). Abuse screen: Denies threats or abuse. Nutritional screening: No deficits noted. Tuberculosis screening: No symptoms or risk factors identified. Assessment: 18:14 General: Appears in no apparent distress. Behavior is calm, cooperative, appropriate ap3 for age. Pain: Denies pain. Neuro: Level of Consciousness is awake, alert, obeys commands, Oriented to person, place, time, situation, Appropriate for age Speech is normal. Neuro: Reports weakness since 3-4 months. Cardiovascular: Patient's skin is warm and dry. Respiratory: Airway is patent Respiratory effort is even, unlabored, Respiratory pattern is regular, symmetrical. 19:15 General: Appears in no apparent distress. comfortable, well groomed, well developed, af3 Behavior is calm, cooperative, appropriate for age. 19:15 Pain: Denies pain. Neuro: Level of Consciousness is awake, alert, obeys commands, af3 Oriented to person, place, time, situation, Appropriate for age. Cardiovascular: Patient's skin is warm and dry. Respiratory: Airway is patent Respiratory effort is even, unlabored, Respiratory pattern is regular, symmetrical. Derm: Skin is intact, Skin is pink, warm \\T\\ dry. normal. 19:20 Reassessment: discharge pending lab results. af3 21:03 Reassessment: Patient appears in no apparent distress at this time. No changes from af3 previously documented assessment. Patient is alert, oriented x 3, equal unlabored respirations, skin warm/dry/pink. pt denies chest pain, sob, blurry vision, dizziness, headaches, pt being discharged at this time, instructed to take bp medications when home, pt demonstrated understanding. Vital Signs: 17:42 BP 177 / 89; Pulse 88; Resp 17; Temp 98.3; Pulse Ox 96% ; Weight 86.64 kg; Height 5 ft. me1 7 in. ; Pain 0/10; 19:01 BP 158 / 92; Pulse 83; Resp 17; Pulse Ox 97% on R/A; ap3 20:29 BP 166 / 90; Pulse 85; Resp 18; Pulse Ox 98% on R/A; af3 21:00 BP 183 / 103; Pulse 78; Resp 16; Pulse Ox 98% on R/A; af3 17:42 Body Mass Index 29.91 (86.64 kg, 170.18 cm) me1 17:42 Pain Scale: Adult me1 21:00 Pt asymptomatic from bp af3 ED Course: 17:22 Patient arrived in ED. cj3 17:45 Triage completed. me1 17:45 Arm band placed on Patient placed in waiting room. me1 17:54 Jose Acosta MD is Attending Physician. royce 17:57 Melissa Levin, RN is Primary Nurse. ap3 18:13 Patient has correct armband on for positive identification. Provided Education on: fall ap3 risk education . Pulse ox on. NIBP on. Door closed. Noise minimized. Warm blanket given. 18:14 Initial lab(s) drawn, by me, sent to lab. Inserted saline lock: 20 gauge in right ap3 antecubital area, using aseptic technique. Blood collected. Flushed with 10 mL NS. 18:15 Basic Metabolic Panel Sent. ap3 18:15 CBC with Diff Sent. ap3 18:15 LFT's Sent. ap3 18:15 Magnesium Sent. ap3 18:15 NT PRO-BNP Sent. ap3 18:15 PT-INR Sent. ap3 18:15 Troponin HS Sent. ap3 18:15 Lipase Sent. ap3 18:26 EKG done, by aviation technician. reviewed by Jose Acosta MD. ts3 18:32 CT Chest Abdomen Pelvis W/O Contrast In Process Unspecified. EDMS 18:49 XRAY Chest (1 view) In Process Unspecified. EDMS 18:54 Tobi Kemp MD is Referral Physician. royce 20:29 No provider procedures requiring assistance completed. af3 21:15 IV discontinued, intact, bleeding controlled, No redness/swelling at site. Pressure af3 dressing applied. Administered Medications: 18:46 Drug: NS 0.9% IV 1000 ml IV at 1 bolus Per protocol; to be given as a bolus over 60 ap3 minutes Route: IV; Rate: 1 bolus; Site: right antecubital; 20:23 Follow up: Response: No adverse reaction; IV Status: Completed infusion; IV Intake: af3 1000ml 20:01 Drug: Lisinopril PO 5 mg PO once Route: PO; af3 20:23 Follow up: Response: No adverse reaction af3 20:07 Drug: Aspirin PO Chewable Tablet 81 mg PO once Route: PO; af3 20:23 Follow up: Response: No adverse reaction af3 Medication: 20:28 VIS not applicable for this client. af3 Intake: 20:23 IV: 1000ml; Total: 1000ml. af3 Outcome: 18:54 Discharge ordered by . royce 21:15 Discharged to home ambulatory, af3 21:15 Condition: stable 21:15 Discharge instructions given to patient, Instructed on discharge instructions, follow up and referral plans. medication usage, Demonstrated understanding of instructions, follow-up care, medications, Prescriptions given X 1, 21:30 Patient left the ED. af3 Signatures: Dispatcher [employer] EDJose Mo MD MD cha Prokisch, Amanda RN RN ap3 Sofie Stanley RN RN me1 Karla Stewart RN RN af3 Tisha Lewis 3 Sindy Bal 3
[2025-03-12] MEDS ORDERED: ASPIRIN 81 MG CHEWABLE TABLET ONE ×2 (19:54→20:04)
[2025-03-13 03:07] VITALS: TEMP 98.3
[2025-03-13 03:13] VITALS: O2SAT 98
[2025-03-13 03:15] VITALS: BP 183/103
== END 2025-03-12 21:30 | disposition home or self-care (01) ==
LOC: ER 17:09
DX: R53.1 Weakness (principal); I10 Essential (primary) hypertension; E11.9 Type 2 diabetes mellitus without complications
CPT/HCPCS: 96361; 93005; 85025; 80048; 36415; 83735; 85610; 80076; 84443; 81003; 84484; 83690; 83880; 71250; 74176; 71045; 96360; 99285; J7030